=== PATIENT | female | born 1945 | race Hispanic/Latino ===

== ENCOUNTER 2017-09-04 23:02 | Emergency (ER) | payer MEDICARE ==
[~2017-09-04 23:02] MED LIST: AUD IH; AZIT500T4 PO; CLOP75TA32 PO; FLUT220HFA IH; FURO40TA5 PO; GLIM4TAB3 PO; GLIP5TAB11 PO; ROSU40TA28 PO
[2017-09-04] MEDS ORDERED: ONDANSETRON HCL 4 MG/2 ML VIAL ONE (23:52)
[2017-09-04] MEDS ORDERED: BACLOFEN 10 MG TABLET PO ONE (23:52)
[2017-09-04] MEDS ORDERED: MORPHINE SULFATE 2 MG/ML 1ML SYG ONE (23:53)
[2017-09-05 00:42] LABS: CREATININE 0.7 mg/dL (0.5-1.5)
== END 2017-09-05 01:41 | disposition home or self-care (01) ==
LOC: EDH 23:02
DX: M54.2 Cervicalgia (principal); M62.830 Muscle spasm of back; R51 Headache; I10 Essential (primary) hypertension; E11.9 Type 2 diabetes mellitus without complications; E78.5 Hyperlipidemia, unspecified; Z98.890 Other specified postprocedural states
CPT/HCPCS: 36415 ×2; 71046; 72040; 72072; 80048; 96374; 96375; 99285; J2405

== ENCOUNTER → 2017-11-13 | Outpatient (CLI) | payer MEDICARE ==
[~2017-11-13] MED LIST changes: +ALBUTEROL SULFATE 0.083% 2.5 MG/3 ML INH IH ONE; +ROSU40TA20 PO; -ROSU40TA28 PO
== END | disposition home or self-care (01) ==
LOC: RESP 10:21
PROVIDERS: ATTEND Family Medicine
DX: J44.9 Chronic obstructive pulmonary disease, unspecified (principal)
CPT/HCPCS: 94060; 94727; 94729

== ENCOUNTER → 2019-12-24 | Outpatient (CLI) | payer OTHER, MEDICARE | END | disposition home or self-care (01) | DX: I25.10 Atherosclerotic heart disease of native coronary artery without angina pectoris (principal) ==

== ENCOUNTER → 2022-06-06 | Outpatient (CLI) | payer OTHER, MEDICARE ==
[~2022-06-06] MED LIST changes: +AEC81 PO; +ALBU6.7H14 IH; -ALBUTEROL SULFATE 0.083% 2.5 MG/3 ML INH IH ONE; -AZIT500T4 PO; +BENZ-70 PO; +CHOL125C7 PO; +DOXY100T21 PO; +EZET10TA48 PO; +FLUT1AER IH; -FLUT220HFA IH; +FURO20TA4 PO; -FURO40TA5 PO; +GLIM1TAB18 PO; -GLIM4TAB3 PO; -GLIP5TAB11 PO; +ISOS30TA92 PO; +METO25TA6 PO; +NITR0.4T50 SL; +OMEP40CA21 PO; -ROSU40TA20 PO; +ROSU40TA21 PO; +SACU1TAB PO
== END | disposition home or self-care (01) ==
LOC: SHCH 08:30
PROVIDERS: ATTEND Internal Medicine Cardiovascular Disease
DX: G45.1 Carotid artery syndrome (hemispheric) (principal); F50.89 Other specified eating disorder; G45.9 Transient cerebral ischemic attack, unspecified
CPT/HCPCS: 93880

== ENCOUNTER → 2022-09-05 | Outpatient (CLI) | payer OTHER, MEDICARE ==
[~2022-09-05] MED LIST changes: +ALBUTEROL 0.083% 2.5 MG/3 ML INH IH ONE; +BENZ-226 PO; -BENZ-70 PO
== END | disposition home or self-care (01) ==
LOC: RESP 08:28
PROVIDERS: ATTEND Internal Medicine Cardiovascular Disease
DX: R06.02 Shortness of breath (principal); Z95.1 Presence of aortocoronary bypass graft; Z79.899 Other long term (current) drug therapy
CPT/HCPCS: 94010; 94060; 94727; 94729

== ENCOUNTER → 2023-03-11 | Outpatient (CLI) | payer OTHER, MEDICARE ==
[~2023-03-11] MED LIST changes: -ALBUTEROL 0.083% 2.5 MG/3 ML INH IH ONE; -CHOL125C7 PO; +DOXY100T2 PO; -DOXY100T21 PO; -ROSU40TA21 PO
[2023-03-11 12:30] LABS: CHOLESTEROL 155 mg/dL (<200); HDL CHOLESTEROL 44 mg/dL (35-85); LDL DIRECT 87 mg/dL (0-99); TRIGLYCERIDES 97 mg/dL (30-200)
== END | disposition home or self-care (01) ==
LOC: LAB 08:04
PROVIDERS: ATTEND Internal Medicine Cardiovascular Disease
DX: E78.2 Mixed hyperlipidemia (principal)
CPT/HCPCS: 36415; 80061

== ENCOUNTER → 2023-06-28 | Outpatient (CLI) | payer OTHER, MEDICARE ==
[2023-06-28 12:54] LABS: CHOLESTEROL 128 mg/dL (<200); HDL CHOLESTEROL 57 mg/dL (35-85); LDL DIRECT 65 mg/dL (0-99); TRIGLYCERIDES 96 mg/dL (30-200)
== END | disposition home or self-care (01) ==
LOC: LAB 08:22
PROVIDERS: ATTEND Internal Medicine Cardiovascular Disease
DX: E11.9 Type 2 diabetes mellitus without complications (principal); E78.2 Mixed hyperlipidemia
CPT/HCPCS: 36415; 80061

== ENCOUNTER → 2023-08-28 | Outpatient (CLI) | payer OTHER, MEDICARE | END | disposition home or self-care (01) | LOC: SHCH 09:37 | PROVIDERS: ATTEND Internal Medicine Cardiovascular Disease | DX: I65.23 Occlusion and stenosis of bilateral carotid arteries (principal) | CPT/HCPCS: 93880 ==

== ENCOUNTER → 2023-08-30 | Outpatient (CLI) | payer OTHER, MEDICARE ==
[2023-08-30 12:15] LABS: CREATININE 1.2 mg/dL (0.5-1.5); POTASSIUM 3.5 mmol/L (3.5-5.1)
== END | disposition home or self-care (01) ==
LOC: LAB 10:32
PROVIDERS: ATTEND Internal Medicine Cardiovascular Disease
DX: I10 Essential (primary) hypertension (principal)
CPT/HCPCS: 36415; 80048

== ENCOUNTER → 2023-09-09 | Outpatient (CLI) | payer OTHER, MEDICARE ==
[~2023-09-09] MED LIST changes: +IOHEXOL-350 75 ML VIAL IV ONE
== END | disposition home or self-care (01) ==
LOC: RAH 07:58
PROVIDERS: ATTEND Internal Medicine Cardiovascular Disease
DX: G45.1 Carotid artery syndrome (hemispheric) (principal)
CPT/HCPCS: 70498; Q9967

== ENCOUNTER → 2024-07-06 | Outpatient (CLI) | payer OTHER, MEDICARE ==
[~2024-07-06] MED LIST changes: -GLIM1TAB18 PO; +GLIM1TAB56 PO; -IOHEXOL-350 75 ML VIAL IV ONE
--- NOTE | 2024-07-06 12:46 | HMCIMG ---
CHEST 2VWS HISTORY: Pacemaker atrial lead malfunction COMPARISON: 05/31/2022 FINDINGS: Frontal and lateral projections of the chest were obtained. There are mild bilateral pulmonary infiltrates suggestive of mild pulmonary vascular congestion with possible superimposed pneumonitis. The heart is borderline enlarged. Poststernotomy changes are seen. Pacemaker is seen entering from the left. No evidence of aortic calcification is seen. Degenerative changes are seen of the thoracolumbar spine. IMPRESSION: 1. There are mild bilateral pulmonary infiltrates suggestive of mild pulmonary vascular congestion with possible superimposed pneumonitis.
== END | disposition home or self-care (01) ==
LOC: RAH 11:24
PROVIDERS: ATTEND Internal Medicine Cardiovascular Disease
DX: T82.110A Breakdown (mechanical) of cardiac electrode, initial encounter (principal); R91.8 Other nonspecific abnormal finding of lung field; Z95.0 Presence of cardiac pacemaker; M47.815 Spondylosis without myelopathy or radiculopathy, thoracolumbar region; Y82.8 Other medical devices associated with adverse incidents
CPT/HCPCS: 71046

== ENCOUNTER 2024-07-16 12:03 | Inpatient (IN) | payer OTHER, MEDICARE ==
[~2024-07-16] VITALS: Ht 127 cm; Wt 67.5 kg
--- NOTE | 2024-07-16 12:25 | EKG ---
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
--- NOTE | 2024-07-16 12:26 | ERN ---
ED Note History of Present Illness Stated Complaint: CP, SOB Chief Complaint: Shortness of Breath Time Seen by MD: 12:06 Time Seen by Midlevel: 12:06 Dictation: The patient is a 78-year-old female with a history of diabetes, CAD, CABG, cholecystectomy who presents to the emergency department with complaints of chest pressure onset one week she is here with shortness of breath and fatigue. Patient reports pain to be constant. Denies any coughs or fevers. Patient also reports generalized headache that she has had for some time. Denies any nausea or vomiting abdominal pain. Allergies: Coded Allergies: No Known Drug Allergies (Verified Allergy, 09/21/12) Home Meds Active Scripts Aspirin (ASPIRIN 81 MG ECTAB) 81 Mg Ectab, 81 MG PO DAILY, #30 TAB.EC 0 Refills Prov:ELEANOR SHAW AGPCNP 01/18/23 Metoprolol Tartrate (Metoprolol Tartrate) 25 Mg Tablet, 12.5 MG PO BID, #30 TAB Prov:KEMI LOZANO NP 05/31/22 Isosorbide Mononitrate (Isosorbide Mononitrate ER) 30 Mg Tab.er.24h, 30 MG PO DAILY for 90 Days, #90 TAB 3 Refills Prov:PARTIMA SANTOS MD 08/09/18 Albuterol Sulfate (Albuterol Sulfate) 2.5 Mg/0.5 Ml Vial.neb, 2.5 MG IH TID PRN for cough, #60 INH Prov:JANEEN ROSADO MD 06/05/14 Reported Medications Budesonide/Formoterol Fumarate (Symbicort 80/4.5 Inhaler) 80 Mcg-4.5 Mcg/Actuation Puff, 1 PUFF IH DAILY, INH 07/16/24 Sacubitril/Valsartan (Entresto 24 mg-26 mg Tablet) 24 Mg-26 Mg Tablet, 1 TAB PO BID for 30 Days, #60 TAB 0 Refills 07/16/24 Metolazone (Metolazone) 5 Mg Tablet, 1 TAB PO DAILY for 30 Days, #30 TAB 0 Refills 07/16/24 Cyanocobalamin (Vitamin B-12) (B-12) 1,000 Mcg Tablet, 1 TAB PO DAILY for 30 Days, #30 TAB 0 Refills 07/16/24 Rosuvastatin Calcium (Rosuvastatin Calcium) 40 Mg Tablet, 1 TAB PO DAILY for high cholesterol for 30 Days, #30 TAB 0 Refills 07/16/24 Apixaban (Eliquis) 5 Mg Tablet, 1 TAB PO DAILY for 30 Days, #60 TAB 0 Refills 07/16/24 Glimepiride (Glimepiride) 1 Mg Tablet, 1 MG PO DAILY, TAB 01/17/23 Omeprazole (Omeprazole) 40 Mg Capsule.dr, 40 MG PO DAILY, CAP 05/28/22 Furosemide (Furosemide) 20 Mg Tablet, 20 MG PO DAILY, TAB 05/28/22 Ezetimibe (Ezetimibe) 10 Mg Tablet, 10 MG PO DAILY, TAB 05/28/22 Benzonatate (Benzonatate) 100 Mg Capsule, 100 MG PO TID PRN for COUGH, CAP 05/28/22 Albuterol Sulfate (Proventil Hfa) 6.7 Gm Hfa.aer.ad, 6.7 GM IH Q6HPRN 05/28/22 Clopidogrel Bisulfate (Clopidogrel) 75 Mg Tablet, 75 MG PO DAILY, TAB 03/25/22 Nitroglycerin (Nitroglycerin) 0.4 Mg Tab.subl, 0.4 MG SL q5 MINUTES X 3, TAB.SL 03/25/22 Sacubitril/Valsartan (Entresto 24 mg-26 mg Tablet) 1 Each Tablet, 1 EACH PO BID, TAB 08/08/18 Fluticasone/Vilanterol (Breo Ellipta 100-25 Mcg INH) 1 Each Aer.pow.ba, 1 EACH IH DAILY 08/08/18 Discontinued Scripts Doxycycline Hyclate (Doxycycline Hyclate) 100 Mg Tablet, 100 MG PO BID, #14 TAB 0 Refills Prov:ELEANOR SHAW AGPCNP 01/18/23 Past Medical History Past Medical History: COPD, Diabetes-Type II, Heart Disease, Hypertension Surgical History: Cholecystectomy Surgical History Other: OPEN HEART SX (2012) Family History: Negative Social History: Negative RN Note Reviewed/Agreed w/PFSH: Yes Review of System Dictation Constitutional: Negative for fever,chills, and weight loss Eyes: Negative for injury, pain,redness, and discharge ENT: Negative for injury,pain or swelling Cardiovascular: Negative for palpitations, and edema positive for chest Respiratory: Negative for , cough, and wheezing, positive for shortness of breath Abdomen/GI: Negative for abdominal pain, nausea, vomiting, diarrhea, and constipation Back: Negative for injury and pain : Negative for injury, bleeding and discharge MS/Extremity: Negative for injury and deformity Skin: Negative for rash, and discoloration Neuro: Negative for , numbness, tingling, and seizure positive for headache fatigue Psych: Negative for suicide ideation, homicidal ideation, and hallucinations Initial Vital Sign VS Vital Signs Date Time Temp Pulse Resp B/P (MAP) Pulse Ox O2 Delivery O2 Flow Rate FiO2 07/16/24 12:27 97.9 76 20 119/37 97 Room Air 0 07/16/24 12:50 21 Physical Exam Dictation Vital Signs reviewed General Appearance: Alert, oriented x 3, mildly distress, well developed, nourished. Head and Face: non-traumatic. Eyes: PERRL, pink conjunctivas, eyelid no trauma, anterior chamber with arcus senilis. Ears: Pinnas intact and no signs of trauma or erythema ear canals clear and no discharge TM no erythema Nose: No discharge, no bleeding. Oropharynx: Mouth normal, tongue pink. pharynx clear,no erythema, tonsils no exudates, no abscesses noted, mucous membrane moist Neck: Supple, non-tender, no thyromegaly, no masses, no JVD, no bruits Breast:Deferred Chest:No tenderness, no crepitus, no paradoxical movement, no retractions Lungs:Clear, well-ventilated, symmetric, no rales, + wheezing, no rhonchi, no stridor, good breath sounds bilaterally Heart: Regular rate, regular rhythm, no murmur, no gallops Vascular: no peripheral edema, Abdomen: Soft, positive bowel sounds, nondistended, no guarding, nontender, no rebound, no masses no hepatomegaly, no splenomegaly, no Cole's sign, no hernias. Rectal: Deferred Genital: Deferred Neurological: Normal speech, motor function intact, sensory function intact Musculoskeletal: Neck nontender, full range of motion, back nontender, full range of motion, Extremities: nontender, full range of motion Skin: Color pink, dry, no turgor, no rash, no lacerations, no abrasions, no contusions. Lymphatic: Deferred Results (Laboratory/Radiology) Laboratory/Radiology Laboratory Tests Test 07/18/24 05:11 07/18/24 08:47 07/18/24 11:32 07/18/24 16:06 Whole Blood Glucose 89 MG/DL (70-110) 99 MG/DL (70-110) 92 MG/DL (70-110) White Blood Count 7.9 K/uL (4.8-10.8) Red Blood Count 3.07 MIL/uL (4.00-5.50) L Hemoglobin 9.4 g/dL (12.0-16.0) L Hematocrit 30.5 % (36-48) L Mean Corpuscular Volume 99.3 fL (79-99) H Mean Corpuscular Hemoglobin 30.6 pg (27.0-33.0) Mean Corpuscular Hemoglobin Concent 30.8 g/dL (32.0-36.0) L Red Cell Distribution Width 15.9 % (11.0-15.5) H Platelet Count 295 K/uL (130-400) Mean Platelet Volume 10.0 fL (7.5-10.5) Immature Granulocyte % (Auto) 0.4 % (0-1) Neutrophils (%) (Auto) 79.1 % (40.0-77.0) H Lymphocytes (%) (Auto) 14.7 % (21.0-51.0) L Monocytes (%) (Auto) 4.3 % (3.0-13.0) Eosinophils (%) (Auto) 1.1 % (0.0-8.0) Basophils (%) (Auto) 0.4 % (0.0-5.0) Neutrophils # (Auto) 6.2 K/uL (1.8-7.7) Lymphocytes # (Auto) 1.2 K/uL (1.0-4.8) Monocytes # (Auto) 0.3 K/uL (0.1-1.0) Eosinophils # (Auto) 0.09 K/uL (0.00-0.70) Basophils # (Auto) 0.03 K/uL (0.00-0.20) Absolute Immature Granulocyte (auto 0.03 K/uL (0-1) Nucleated Red Blood Cells 0.3 % (0.0-0.19) H Sodium Level 145 mmol/L (136-145) Potassium Level 3.3 mmol/L (3.5-5.1) L Chloride Level 107 mmol/L (101-111) Carbon Dioxide Level 31 mmol/L (21-32) Blood Urea Nitrogen 26 mg/dL (7-18) H Creatinine 1.6 mg/dL (0.5-1.0) H Glomerular Filtration Rate Calc 33 mL/min (>90) Random Glucose 145 mg/dL (70-105) H Total Calcium 8.7 mg/dL (8.5-10.1) Magnesium Level 1.90 mg/dL (1.80-2.40) Total Bilirubin 1.1 mg/dL (0.2-1.0) H Aspartate Amino Transf (AST/SGOT) 19 U/L (10-37) Alanine Aminotransferase (ALT/SGPT) 10 U/L (12-78) L Alkaline Phosphatase 87 U/L (50-136) Total Protein 6.2 g/dL (6.0-8.3) Albumin 2.7 g/dL (3.5-5.0) L Test 07/18/24 20:08 07/19/24 03:23 07/19/24 05:23 07/19/24 10:37 Whole Blood Glucose 163 MG/DL (70-110) #H 141 MG/DL (70-110) H 161 MG/DL (70-110) H White Blood Count 10.2 K/uL (4.8-10.8) # Red Blood Count 2.96 MIL/uL (4.00-5.50) L Hemoglobin 8.9 g/dL (12.0-16.0) L Hematocrit 28.9 % (36-48) L Mean Corpuscular Volume 97.6 fL (79-99) Mean Corpuscular Hemoglobin 30.1 pg (27.0-33.0) Mean Corpuscular Hemoglobin Concent 30.8 g/dL (32.0-36.0) L Red Cell Distribution Width 16.0 % (11.0-15.5) H Platelet Count 287 K/uL (130-400) Mean Platelet Volume 10.0 fL (7.5-10.5) Immature Granulocyte % (Auto) 0.5 % (0-1) Neutrophils (%) (Auto) 78.6 % (40.0-77.0) H Lymphocytes (%) (Auto) 13.5 % (21.0-51.0) L Monocytes (%) (Auto) 6.4 % (3.0-13.0) Eosinophils (%) (Auto) 0.7 % (0.0-8.0) Basophils (%) (Auto) 0.3 % (0.0-5.0) Neutrophils # (Auto) 8.0 K/uL (1.8-7.7) H Lymphocytes # (Auto) 1.4 K/uL (1.0-4.8) Monocytes # (Auto) 0.7 K/uL (0.1-1.0) Eosinophils # (Auto) 0.07 K/uL (0.00-0.70) Basophils # (Auto) 0.03 K/uL (0.00-0.20) Absolute Immature Granulocyte (auto 0.05 K/uL (0-1) Nucleated Red Blood Cells 0.4 % (0.0-0.19) H Prothrombin Time 11.9 SEC (9.6-11.6) H Prothromb Time International Ratio 1.07 (0.85-1.15) Sodium Level 144 mmol/L (136-145) Potassium Level 4.0 mmol/L (3.5-5.1) Chloride Level 109 mmol/L (101-111) Carbon Dioxide Level 27 mmol/L (21-32) Blood Urea Nitrogen 27 mg/dL (7-18) H Creatinine 1.6 mg/dL (0.5-1.0) H Glomerular Filtration Rate Calc 33 mL/min (>90) Random Glucose 152 mg/dL (70-105) H Total Calcium 8.8 mg/dL (8.5-10.1) Phosphorus Level 2.5 mg/dL (2.5-4.9) Magnesium Level 1.90 mg/dL (1.80-2.40) Test 07/19/24 15:38 07/19/24 20:19 07/20/24 03:56 07/20/24 06:01 Whole Blood Glucose 178 MG/DL (70-110) H 77 MG/DL (70-110) # 102 MG/DL (70-110) White Blood Count 7.5 K/uL (4.8-10.8) Red Blood Count 3.00 MIL/uL (4.00-5.50) L Hemoglobin 9.2 g/dL (12.0-16.0) L Hematocrit 29.3 % (36-48) L Mean Corpuscular Volume 97.7 fL (79-99) Mean Corpuscular Hemoglobin 30.7 pg (27.0-33.0) Mean Corpuscular Hemoglobin Concent 31.4 g/dL (32.0-36.0) L Red Cell Distribution Width 16.2 % (11.0-15.5) H Platelet Count 295 K/uL (130-400) Mean Platelet Volume 9.9 fL (7.5-10.5) Immature Granulocyte % (Auto) 0.4 % (0-1) Neutrophils (%) (Auto) 67.3 % (40.0-77.0) Lymphocytes (%) (Auto) 21.4 % (21.0-51.0) Monocytes (%) (Auto) 8.6 % (3.0-13.0) Eosinophils (%) (Auto) 1.9 % (0.0-8.0) Basophils (%) (Auto) 0.4 % (0.0-5.0) Neutrophils # (Auto) 5.1 K/uL (1.8-7.7) Lymphocytes # (Auto) 1.6 K/uL (1.0-4.8) Monocytes # (Auto) 0.7 K/uL (0.1-1.0) Eosinophils # (Auto) 0.14 K/uL (0.00-0.70) Basophils # (Auto) 0.03 K/uL (0.00-0.20) Absolute Immature Granulocyte (auto 0.03 K/uL (0-1) Nucleated Red Blood Cells 0.7 % (0.0-0.19) H Sodium Level 145 mmol/L (136-145) Potassium Level 3.7 mmol/L (3.5-5.1) Chloride Level 108 mmol/L (101-111) Carbon Dioxide Level 30 mmol/L (21-32) Blood Urea Nitrogen 23 mg/dL (7-18) H Creatinine 1.7 mg/dL (0.5-1.0) H Glomerular Filtration Rate Calc 31 mL/min (>90) Random Glucose 98 mg/dL (70-105) Total Calcium 8.8 mg/dL (8.5-10.1) Test 07/20/24 10:41 07/20/24 15:33 07/20/24 19:51 Whole Blood Glucose 92 MG/DL (70-110) 172 MG/DL (70-110) #H 118 MG/DL (70-110) H REASON: headache ORDERING PHYSICIAN: KEMI ORTEGA PROCEDURE: HEAD WO - CT HEAD/BRAIN W/O CONTRAST Exam Type: CT HEAD/BRAIN W/O CONTRAST Clinical Information: headache Comparison: None CT Dose Index (CTDI): 57.33 mGy Dose Length Product (DLP): 956.79 total mGy-cm Findings: There is low attenuation throughout the periventricular white matter locations, consistent with chronic small vessel ischemic changes. No acute intra- or extra-axial fluid collections are seen. There is no evidence of acute or chronic hemorrhage. There is no mass effect or shift of midline structures. There are no areas to suggest acute infarct. The skull windows show no significant abnormalities. IMPRESSION: 1. CHRONIC SMALL VESSEL ISCHEMIC CHANGES. REASON: cp ORDERING PHYSICIAN: KEMI ORTEGA CERAMIC ENGINEER PROCEDURE: CXR1VW - CHEST 1VW Exam Type: CHEST 1VW Clinical Information: cp Comparison: None Findings: Status post median sternotomy. Left-sided cardiac pacemaker in place. There is prominence of the pulmonary vascular markings consistent with pulmonary venous congestion. . There is central bilateral perihilar edema consistent with congestive heart failure. The heart is enlarged in size. The bony and soft tissue structures of the chest are unremarkable. Impression: Congestive heart failure with perihilar edema as noted. Labs Reviewed?: Yes EKG: (+) rhythm (Sinus rhythm) EKG Comment: EKG 07/16/2024 1224 ventricular rate 71, regular rate and rhythm, normal sinus rhythm, prolonged QT, no STEMI. ED Course ED Course Orders Procedure Category Date Status Time Cbc With Differential LAB 07/18/24 Complete 07:56 Comprehensive LAB 07/18/24 Complete Metabolic Panel 07:56 Magnesium LAB 07/18/24 Complete 07:56 Magnesium LAB 07/19/24 Complete 04:00 Phosphorus LAB 07/19/24 Complete 04:00 Cbc With Differential LAB 07/19/24 Complete 04:00 Cbc With Differential LAB 07/20/24 Complete 04:00 Cbc With Differential LAB 07/21/24 Verified 04:00 Basic Metabolic Panel LAB 07/19/24 Complete 04:00 Basic Metabolic Panel LAB 07/20/24 Complete 04:00 Basic Metabolic Panel LAB 07/21/24 Verified 04:00 Chest 1vw RAD 07/19/24 Resulted 06:00 Furosemide 40 Mg PHA 07/18/24 Complete Tablet (Lasix 40mg 17:00 Isosorbide [place] 30mg PHA 07/18/24 Complete Sr Tab (Imdur 30mg 12:00 Gi Soft/[place] Diet DIET 07/18/[address] Midline Access CPOE 07/18/24 Transmitted 18:24 Prothrombin Time With LAB 07/19/24 Complete INR 04:00 Pantoprazole 40mg Inj PHA 07/19/24 In Process (Protonix 40mg Inj 00:30 Metoprolol Succinate PHA 07/20/24 In Process (Toprol Xl) 09:00 Sacubitril/Valsartan PHA 07/19/24 In Process (Entresto 24 Mg-26 21:00 Furosemide 40 Mg PHA 07/20/24 In Process Tablet (Lasix 40mg 07:00 Consent Egd CPOE 07/20/24 Transmitted 10:25 Ketamine 50mg/Ml PHA 07/20/24 Complete Syringe (Ketamine 10:59 Propofol 20ml Vial PHA 07/20/24 Complete (Diprivan 20ml Vial) 11:00 Ephedrine Sulfate 50 PHA 07/20/24 Complete Mg/Ml Amp (Ephedrin 11:04 *Nursing CPOE 07/20/24 Transmitted Communication: 11:18 Heart Healthy Diet DIET 07/20/24 Transmitted Lunch Comprehensive LAB 07/21/24 Verified Metabolic Panel 04:00 Cbc Without LAB 07/21/24 Verified Differential 04:00 Magnesium LAB 07/21/24 Verified 04:00 Vital Signs Date Time Temp Pulse Resp B/P (MAP) Pulse Ox O2 Delivery O2 Flow Rate FiO2 07/20/24 19:59 64 18 N/A Room Air 21 07/20/24 19:57 60 16 07/20/24 19:03 98.1 67 16 103/42 94 Room Air 07/20/24 17:24 98.6 75 20 123/75 98 Room Air 07/20/24 14:20 86 86/39 96/37 96/37 102/48 07/20/24 12:00 98.2 87 20 97/56 99 Room Air 07/20/24 08:20 72 18 N/A Room Air 21 30/24 08:00 97 Room Air* 0 07/20/24 08:00 97.7 71 20 103/53 97 Room Air 07/20/24 04:05 98.4 69 20 110/40 96 Room Air 07/20/24 00:20 98.4 88 18 108/40 98 Room Air 07/19/24 20:20 97.9 105 20 105/75 100 Room Air 07/19/24 20:00 100 Room Air* 0 07/19/24 19:52 70 16 07/19/24 19:52 70 16 N/A Room Air 07/19/24 16:26 98.6 68 20 127/52 98 Room Air 07/19/24 11:43 98.8 68 20 120/55 98 Room Air 07/19/24 08:00 99.0 65 20 101/42 96 Room Air 07/19/24 08:00 96 Room Air* 0 07/19/24 07:31 97.7 99 18 101/42 96 Room Air 07/19/24 04:27 97.9 65 18 105/73 96 Room Air 07/18/24 23:35 98.4 60 18 113/45 98 Room Air 07/18/24 20:00 97 Room Air* 0 07/18/24 19:46 98.2 66 18 96/54 97 Room Air 07/18/24 18:46 67 16 N/A Room Air 07/18/24 18:45 67 16 07/18/24 16:00 98.1 60 18 99/50 92 Room Air 07/18/24 13:24 117/46 07/18/24 11:00 98.1 69 16 113/55 93 Room Air 07/18/24 08:00 96 Room Air* 0 07/18/24 07:00 97.9 54 18 129/49 96 Room Air 07/18/24 06:39 67 18 N/A Room Air 07/18/24 06:37 67 18 07/18/24 04:28 98.4 91 18 97/48 93 Room Air 07/18/24 00:33 62 18 106/73 99 Room Air 07/17/24 20:16 71 17 N/A Room Air 0.0 07/17/24 20:16 71 17 HEART Score Response (Comments) Value History: High suspicion (+2) 2 EKG: Normal 0 Age: > 65yrs (+2) 2 Risk Factors: 3+ risk factors (+2) 2 Initial Troponin: >3x Normal Limit (+2) 2 Total [address] Medical Decision Making [facility] MDM: The patient is a 78-year-old female with a history of diabetes, CAD, CABG, cholecystectomy who presents to the emergency department with complaints of chest pressure onset one week she is here with shortness of breath and fatigue. Patient reports pain to be constant. Denies any coughs or fevers. Patient also reports generalized headache that she has had for some time. Denies any nausea or vomiting abdominal pain. CBC showed no leukocytosis, normocytic anemia, chemistry showed GFR of 39, 1st troponin at 934, 2nd troponin 864. CT head with no acute intracranial bleeding. Elevated BNP Chest x-ray showed CHF Patient reports a relief in pain although she still feels some pressure. Patient will be admitted for further management. Differential diagnosis: ACS, pneumonia, pneumothorax, electrolyte imbalance, intracerebral hemorrhage Comorbidities: Diabetes, hypertension, permanent pacemaker, CABG, CAD Tests considered and not ordered secondary to shared decision making include: none Previous outside records reviewed: none Risk of complication and/or morbidity or mortality of patient management: The patient meets criteria for admission. Need for emergency major/minor surgery: No There are no social concerns with this patient. I independently interpreted the tests I ordered (labs, urinalysis, etc.). I discussed the case with the hospitalist for admission. Ramsey who accepts admission I discussed the case with the following specialists: none. Historian: pateint. I independently interpreted imaging studies and EKGs that I ordered (US, CT, XR, EKG, etc.). External chart review: none. Medical management and examination interpretation discussions were had by me with other qualified healthcare professionals as indicated for the patient's care. Critical Care Note Critical Time: other (36) Comment(s) Total critical care time was 36 minutes. Excluding time for procedures. M anagement of critically ill patient with concern for acute decompensation. Management included interpretation of laboratory values and imaging, hemodynamics, time for consultation with consultants and admitting physician. DX & DISP Disposition: Inpatient Decision to Admit Date: Jul 16, 2024 Decision to Admit Time: 15:45 Departure Impression: Primary Impression: NSTEMI (non-ST elevated myocardial infarction) Additional Impressions: CHF exacerbation, Shortness of breath, Anemia, Occult blood positive stool, CKD (chronic kidney disease), Headache Condition: Stable Referrals: MARIA A B[place]MINGHAM (PCP) I have reviewed the case, and I agree with, Diagnosis and Plan ATTESTATION BY PHYSICIAN I PERFORMED THE SUBSTANTIVE PORTION OF THE VISIT. I HAVE REVIEWED AND PERSONALLY MADE AND APPROVED THE MANAGEMENT PLAN THAT IS DOCUMENTED IN THE NOTE BY MYSELF FOR THE A PP. I ACKNOWLEDGED FOR RESPONSIBILITY FOR THE PATIENT'S MANAGEMENT PLAN. KEMI ORTEGA Jul 16, 2024 12:25 LAWRENCE MONTOYA MD Jul 20, 2024 20:06
[2024-07-16] MEDS ORDERED: ASPIRIN 325MG TAB PO ONE (12:30)
[2024-07-16 12:53] LABS: BASOPHILS # (AUTO) 0.04 K/uL (0.00-0.20); BASOPHILS % (AUTO) 0.5 % (0.0-5.0); EOSINOPHILS # (AUTO) 0.08 K/uL (0.00-0.70); EOSINOPHILS % (AUTO) 1.1 % (0.0-8.0); HEMATOCRIT 28.1 % (36-48); IMMATURE GRANULOCYTE ABSOLUTE 0.03 K/uL (0-1); LYMPHOCYTES # (AUTO) 1.8 K/uL (1.0-4.8); LYMPHOCYTES % (AUTO) 23.1 % (21.0-51.0); MONOCYTES # (AUTO) 0.5 K/uL (0.1-1.0); NEUTROPHILS # (AUTO) 5.1 K/uL (1.8-7.7); NEUTROPHILS % (AUTO) 67.9 % (40.0-77.0); PLATELET COUNT (AUTO) 248 K/uL (130-400); RED BLOOD CELL COUNT(AUTO) 2.81 MIL/uL (4.00-5.50); RED CELL DISTRIBUTION WIDTH 15.9 % (11.0-15.5); WHITE BLOOD COUNT (AUTO) 7.6 K/uL (4.8-10.8)
[2024-07-16] MEDS: NITROGLYCERIN 1GM OINT 1 INCH/1GM TD ONE (12:56)
[2024-07-16 13:01] LABS: PROTHROMBIN TIME 11.2 SEC (9.6-11.6)
[2024-07-16 13:13] LABS: CREATININE 1.4 mg/dL (0.5-1.0); POTASSIUM 4.1 mmol/L (3.5-5.1)
[2024-07-16 13:16] LABS: COVID19 (SARS ANTIGEN RAPID) PRESUMPTIVE NEGATIVE (NEGATIVE); INFLUENZA TYPE A Negative For Type A (NEGATIVE); INFLUENZA TYPE B Negative For Type B (NEGATIVE)
[2024-07-16 13:17] LABS: ALBUMIN 2.9 g/dL (3.5-5.0); BILIRUBIN,DIRECT 0.2 mg/dL (0.0-0.3); BILIRUBIN,TOTAL 0.5 mg/dL (0.2-1.0); MAGNESIUM 2.4 mg/dL (1.80-2.40); TOTAL PROTEIN, SERUM 6.5 g/dL (6.0-8.3)
[2024-07-16 13:35] LABS: B-TYPE NATRIURETIC PEPTIDE 501 pg/mL (0-100)
--- NOTE | 2024-07-16 13:36 | HMCIMG ---
Exam Type: CHEST 1VW Clinical Information: cp Comparison: None Findings: Status post median sternotomy. Left-sided cardiac pacemaker in place. There is prominence of the pulmonary vascular markings consistent with pulmonary venous congestion. . There is central bilateral perihilar edema consistent with congestive heart failure. The heart is enlarged in size. The bony and soft tissue structures of the chest are unremarkable. Impression: Congestive heart failure with perihilar edema as noted.
--- NOTE | 2024-07-16 14:21 | HMCIMG ---
Exam Type: CT HEAD/BRAIN W/O CONTRAST Clinical Information: headache Comparison: None CT Dose Index (CTDI): 57.33 mGy Dose Length Product (DLP): 956.79 total mGy-cm Findings: There is low attenuation throughout the periventricular white matter locations, consistent with chronic small vessel ischemic changes. No acute intra- or extra-axial fluid collections are seen. There is no evidence of acute or chronic hemorrhage. There is no mass effect or shift of midline structures. There are no areas to suggest acute infarct. The skull windows show no significant abnormalities. IMPRESSION: 1. CHRONIC SMALL VESSEL ISCHEMIC CHANGES.
[2024-07-16] MEDS: ASPIRIN 325MG TAB PO SCH (14:36)
[2024-07-16] MEDS: furoSEMIDE 20MG VIAL IV SCH ×3 (14:36→20:10)
--- NOTE | 2024-07-16 14:41 | NUR ---
PATIENT DECLINED OCCULT STOOL STATING SHE IS NOT HAVING SIGNS OF BLOOD IN STOOL. PROVIDER KEMI ORTEGA NP AT BEDSIDE
[2024-07-16 14:54] LABS: APPEARANCE,URINE CLEAR (CLEAR); BILIRUBIN,URINE NEGATIVE (NEGATIVE); COLOR,URINE LIGHT-YELLOW (YELLOW); GLUCOSE, URINE (UA) NEGATIVE (NEGATIVE); KETONES,URINE NEGATIVE (NEGATIVE); LEUKOCYTE ESTERASE ,URINE NEGATIVE Leu/uL (NEGATIVE); NITRATE,URINE NEGATIVE (NEGATIVE); OCCULT BLOOD,URINE NEGATIVE (NEGATIVE); PH,URINE 5.5 (5.0-8.0); PROTEIN,URINE 20 mg/dL (NEGATIVE); UROBILINOGEN,URINE 0.2 mg/dL (0.2-1.0)
[2024-07-16 14:55] LABS: ADD UA MICROSCOPIC YES
[2024-07-16 14:57] LABS: BACTERIA,URINE RARE /HPF (None Seen); MUCUS,URINE RARE LPF (None Seen); RBC,URINE 0-1 /HPF (0-1); SQUAMOUS EPITHELIAL CELL,UR RARE /HPF (0-2)
[2024-07-16] MEDS: PANTOPrazole 40 MG/VIAL IVP ONE (16:10)
[2024-07-16] MEDS: INSULIN humuLIN R 100 UNIT/ML 3ML SQ SCH (16:30)
[2024-07-16] MEDS ORDERED: ondanSETRON 4MG INJ IVP PRN (16:30)
--- NOTE | 2024-07-16 16:56 | HMCIMG ---
Exam Type: US VENOUS DOPPLER BILATERAL Clinical Information: Bilateral lower extremity edema, r/o DVT Comparison: None Findings: The examination shows normal deep venous system. There is normal compressibility at all levels. There is no intraluminal clot. There is no occlusion. Adequate response is obtained on augmentation. Impression: No evidence of DVT.
[2024-07-16] MEDS ORDERED: PoTASSium chloRIDE 20MEQ/100ML 100 ML IV PRN (17:30)
[2024-07-16] MEDS ORDERED: SYMB8060 IH (17:38)
[2024-07-16] MEDS ORDERED: ROSU40TA88 PO (17:38)
[2024-07-16] MEDS ORDERED: APIX5TAB PO (17:38)
[2024-07-16] MEDS ORDERED: METO5TAB7 PO (17:38)
[2024-07-16] MEDS ORDERED: SACU1TAB PO (17:38)
[2024-07-16] MEDS ORDERED: CYAN100099 PO (17:38)
--- NOTE | 2024-07-16 17:39 | NUR ---
DECLINED ROLANDO ZAMORA. PATIENT STATES WANTS TO HAVE BATHROOM PRIVELAGES
--- NOTE | 2024-07-16 17:39 | NUR ---
HOME MEDICATIONS UPDATED IN EMR
[2024-07-16] MEDS: PANTOPrazole 40MG INJ 80 MG in 0.9%NACL 100ML 100 ML IVP SCH (18:35)
--- NOTE | 2024-07-16 18:36 | NUR ---
GI CONSULT: DR WEBB SPOKE WITH SAKINA WITH GI
--- NOTE | 2024-07-16 19:01 | HP ---
[facility] HISTORY AND PHYSICAL Date of Service: Jul 16, 2024 Time of Service: 18:48 HISTORY OF PRESENT ILLNESS: [Date of service: 07/16/2024, patient was seen in ER [age]-year-old female with underlying history of type 2 diabetes mellitus, chronic kidney disease stage 3, hypertension, hyperlipidemia, underlying history of coronary artery disease status post remote MO in 2008, history of coronary artery bypass grafting times three-vessel in 2008 and subsequently documented inoperable coronary artery disease by repeat cardiac catheterization in 09/2012, history of advanced ischemic cardiomyopathy with LVEF less than 30% (05/2023), history of recent anticoagulation with Eliquis, history of ICD placement, history of bilateral carotid artery stenosis who presented to the ER with chief complaint of progressive shortness of breath. Patient states that shortness of breath started several days ago and has been pr ogressive in severity. She has dyspnea on exertion with minimal ambulation she has noticed significant swelling of her lower extremity. She denies any significant chest pain or chest pressure but reports having palpitations. She is followed by Dr. Kinney's with Cardiology as outpatient. Recently, due to marginal blood pressure, her dose of outpatient Lasix was decreased from 40 mg to 20 mg daily. She was also started on anticoagulation with Eliquis two weeks ago with last dose being a day prior. She is unsure if she has underlying history of atrial fibrillation/atrial flutter. She has also been taking aspirin as outpatient. She was also recently told that there might be issues with her ICD lead and she has been monitored closely by Dr. Davila. Legs have been significantly swollen since the dose of Lasix was reduced. On presentation to the hospital, patient was noted to be afebrile with T-max of 97.9 F, heart rate of 76, blood pressure 119/37. Patient was also noted to be hypoxemic requiring 2 L of O2 supplementation by nasal cannula. Labs on presentation showed WBC count of 7600, hemoglobin of 8.7, MCV of 100 with platelet count of [id number]. CMP remarkable for sodium 144, potassium 4.1, BUN of 26, creatinine of 1.4. Cardiac panel was noted to be elevated with high sensitivity troponin of 934 and BNP of 501. Chest x-ray showed significant pulmonary vascular congestion rakel rning for pulmonary edema with perihilar edema. Stool occult was positive for blood. Patient denies noticing active melena or hematochezia. Patient will be admitted for further management of acute on chronic systolic and diastolic heart failure exacerbation, NSTEMI, concern for GI bleeding in the setting of outpatient Eliquis therapy. Patient will be admitted under hospitalist service and consultation with GI and Cardiology will be requested this admission. We will monitor this patient closely. Advanced directives was discussed with patient and daughter at bedside, patient has requested modified code, she is okay with intubation, vasopressors, defibrillation and cardioversion. She has requested no CPR. ] REVIEW OF SYSTEMS CONSTITUTIONAL: Asthenia, malaise NEUROLOGICAL: Denies headache, amaurosis fugax, motor weakness, sensory deficit , vertigo/spinning sensation, gait abnormalities, or tremors. ENT: No hearing loss, otalgia, otorrhea, rhinitis, rhinorrhea, hoarseness, or sore throat. CARDIOVASCULAR: Dyspnea on exertion, palpitation, progressive lower extremity edema PULMONARY: Shortness of breath, PND, orthopnea SLEEP: Denies morning headaches, daytime somnolence or napping. Denies difficulty falling asleep, staying asleep, waking from sleep. Denies knowledge of snoring. GASTROINTESTINAL: Denies any type of dysphagia to either liquids or solids. Denies nausea, vomiting, pyrosis, early satiety, abdominal pain, diarrhea, constipation, or changes in stool consistency or caliber. Denies coffee-ground emesis, hematemesis, hematochezia, or melanotic stools. GENITOURINARY: Denies frequency, urgency, nocturia, hematuria or incontinence (Storage/Irritative symptoms.) Low urinary stream, straining to void, urinary intermittency or hesitancy, splitting of the voiding stream, terminal dribbling. ENDOCRINOLOGIC: Denies polyuria, polydipsia, polyphagia or heat/cold intolerances. HEMATOLOGIC: Denies thrombophilia/previous clots, or coagulopathy/bleeding disorders. ONCOLOGIC: Denies personal history of malignancy. DERMATOLOGIC: Denies rashes or pruritus. PSYCHIATRIC: Denies any suicidal or homicidal ideation. Denies hallucinations. Past Medical History: Coronary artery disease status post remote myocardial infarction in 2008 Coronary artery disease status post remote coronary bypass surgery x3 vessels in 2008 with subsequent documented inoperable coronary artery disease by cardiac catheterization September 2012 Chronic systolic and diastolic congestive heart failure hospital History of AICD insertion with Guidant device Type 2 diabetes with circulatory and renal manifestations Essential hypertension Carotid artery disease by Doppler exam February 2021 with 50 to 70% right internal carotid stenosis and greater than 70% left internal carotid stenosis Obesity Past Surgical History: Coronary artery disease status post coronary bypass surgery x3 vessels in 2008 AICD insertion November 2012 with generator replacement May 2017 Cholecystectomy Family History: Noncontributory Social History: Noncontributory Habits: Remote mild smoker. Reports secondhand smoke. Denies alcohol consumption. Denies illicit drug use Home Meds: Furosemide 20 mg p.o. daily Metoprolol tartrate 12.5 mg b.i.d. Aspirin 81 mg daily Eliquis 5 mg b.i.d. Zetia 10 mg p.o. daily Entresto twice daily Omeprazole 40 mg daily Breo inhaler Albuterol inhaler 3 times daily Glimepiride 1 mg daily Coded Allergies: No Known Drug Allergies (Verified Allergy, 09/21/12) PHYSICAL EXAM GENERAL APPEARANCE: The patient is awake, alert, and oriented, in no acute cardiopulmonary distress. NEUROLOGICAL: Cranial nerves II-XII grossly intact. Motor is 5/5 in bilateral upper and lower extremities proximal to distal. No sensory deficits. HEENT: Face is symmetric. Pupils are equal and reactive. Extraocular movements are intact. NECK: Supple. No JVD. No thyromegaly. No submental, submandibular, pre-/postauricular, occipital or supraclavicular lymphadenopathy. CHEST: Normal chest expansion. No Telemetry. LUNGS: Crackles noted bilateral lung bases with rhonchorous breath sounds CARDIOVASCULAR: Regular. S1 and S2 normal. No appreciable rubs, murmurs or gallops. ABDOMEN: Soft, nontender, and nondistended. There is no rebound, voluntary guarding, or rigidity. : Deferred. No Ma. EXTREMITIES: 2+ pitting edema bilateral lower extremity SKIN: No skin breakdown. Vital Sign (Last 24 Hours) 07/16/24 07/16/24 12:27 17:21 Temp 97.9 Pulse 64 Resp 12 B/P (MAP) 112/47 Pulse Ox 96 O2 Delivery Room Air* O2 Flow Rate 0 FiO2 21 LABS: Laboratory: Test 07/16/24 14:54 07/16/24 14:45 07/16/24 13:53 07/16/24 12:39 Range/Units Stool Occult Blood POSITIVE H NEGATIVE Urine Color LIGHT-YELLOW YELLOW Urine Appearance CLEAR CLEAR Urine pH 5.5 5.0-8.0 Urine Specific [place] 1.021 1.001-1.031 Urine Protein 20 H NEGATIVE mg/dL Urine Glucose (UA) NEGATIVE NEGATIVE mg/dL Urine Ketones NEGATIVE NEGATIVE mg/dL Urine Occult Blood NEGATIVE NEGATIVE Urine Nitrate NEGATIVE NEGATIVE Urine Bilirubin NEGATIVE NEGATIVE mg/dL Urine Urobilinogen 0.2 0.2-1.0 mg/dL Urine Leukocyte Esterase NEGATIVE NEGATIVE Ronny/uL Urine RBC 0-1 0-1 /HPF Urine WBC 2-5 H 0-1 /HPF Urine Squamous Epithelial Cells RARE 0-2 /HPF Urine Bacteria RARE None Seen /HPF Urine Hyaline Casts 2-5 H 0-1 /LPF /LPF Troponin I High Sensitivity 864 *H 4-50 ng/L White Blood Count 7.6 4.8-10.8 K/uL Red Blood Count 2.81 L 4.00-5.50 MIL/uL Hemoglobin 8.7 L 12.0-16.0 g/dL Hematocrit 28.1 L 36-48 % Mean Corpuscular Volume 100.0 H 79-99 fL Mean Corpuscular Hemoglobin 31.0 27.0-33.0 pg Mean Corpuscular Hemoglobin Concent 31.0 L 32.0-36.0 g/dL Red Cell Distribution Width 15.9 H 11.0-15.5 % Platelet Count 248 130-400 K/uL Mean Platelet Volume 10.1 7.5-10.5 fL Immature Granulocyte % (Auto) 0.4 0-1 % Neutrophils (%) (Auto) 67.9 40.0-77.0 % Lymphocytes (%) (Auto) 23.1 21.0-51.0 % Monocytes (%) (Auto) 7.0 3.0-13.0 % Eosinophils (%) (Auto) 1.1 0.0-8.0 % Basophils (%) (Auto) 0.5 0.0-5.0 % Neutrophils # (Auto) 5.1 1.8-7.7 K/uL Lymphocytes # (Auto) 1.8 1.0-4.8 K/uL Monocytes # (Auto) 0.5 0.1-1.0 K/uL Eosinophils # (Auto) 0.08 0.00-0.70 K/uL Basophils # (Auto) 0.04 0.00-0.20 K/uL Absolute Immature Granulocyte (auto 0.03 0-1 K/uL Nucleated Red Blood Cells 0.0 0.0-0.19 % Red Blood Cell Morphology See comments Prothrombin Time 11.2 9.6-11.6 SEC Prothromb Time International Ratio 1.00 0.85-1.15 Activated Partial Thromboplast Time 25.0 L 26.3-35.5 SEC Sodium Level 144 136-145 mmol/L Potassium Level 4.1 3.5-5.1 mmol/L Chloride Level 110 101-111 mmol/L Carbon Dioxide Level 26 21-32 mmol/L Blood Urea Nitrogen 26 H 7-18 mg/dL Creatinine 1.4 H 0.5-1.0 mg/dL Glomerular Filtration Rate Calc 39 >90 mL/min Random Glucose 127 H 70-105 mg/dL Total Calcium 9.0 8.5-10.1 mg/dL Magnesium Level 2.40 1.80-2.40 mg/dL Total Bilirubin 0.5 0.2-1.0 mg/dL Direct Bilirubin 0.2 0.0-0.3 mg/dL Aspartate Amino Transf (AST/SGOT) 17 10-37 U/L Alanine Aminotransferase (ALT/SGPT) 13 12-78 U/L Alkaline Phosphatase 85 50-136 U/L Total Creatine Kinase 30 # 21-232 U/L B-Type Natriuretic Peptide 501 H 0-100 pg/mL Total Protein 6.5 6.0-8.3 g/dL Albumin 2.9 L 3.5-5.0 g/dL Influenza Type A Antigen Negative For Type A NEGATIVE Influenza Type B Antigen Negative For Type B NEGATIVE SARS-CoV-2 Antigen (Rapid) PRESUMPTIVE NEGATIVE NEGATIVE Current Medications Medications (Trade) Dose Ordered Sig/Fracisco Route PRN Reason Start Time Stop Time Status Last Admin Dose Admin Acetaminophen (TYLenol 500MG TAB) 500 mg Q6H PRN PO MILD PAIN (1-3) 07/16/24 16:30 08/15/24 16:29 Aspirin (Aspirin 325mg Tab) 325 mg ONCE PO 07/16/24 14:30 07/16/24 21:30 07/16/24 14:36 325 MG Atorvastatin Calcium (LIPItor 40MG) 40 mg HS PO 07/16/24 21:00 08/15/24 20:59 Budesonide (Pulmicort 0.5 Mg/2ml) 0.5 mg BIDRESP IH 07/16/24 18:00 08/15/24 17:59 EZETIMIBE (Zetia) 10 mg DAILY PO 07/17/24 09:00 08/16/24 08:59 Furosemide (LASix 20MG VIAL) 20 mg ONCE IV 07/16/24 14:30 07/16/24 16:03 DC 07/16/24 14:36 20 MG Furosemide (LASix 20MG VIAL) 20 mg Q8H IV 07/16/24 18:00 07/16/24 17:30 DC Furosemide (LASix 20MG VIAL) 20 mg Q8H IV 07/16/24 19:00 08/15/24 18:59 Home Med (Home Medication) (Fluticasone/ Vilanterol (B... DAILY IH 07/17/24 09:00 08/16/24 08:59 Insulin Human Regular (humuLIN R 100 UNIT/ML 3ML) INSULIN SLIDING SCAL... ACHS SQ 07/16/24 16:30 08/15/24 16:29 Magnesium Sulfate 50 ml @ 0 mls/hr PROTOCOL IV 07/16/24 17:30 08/15/24 17:29 Metoprolol Tartrate (loprESSOR) 12.5 mg BID PO 07/16/24 21:00 08/15/24 20:59 Ondansetron HCl (zoFRAN 4MG INJ) 4 mg Q6H PRN IVP NAUSEA/VOMITING 07/16/24 16:30 08/15/24 16:29 Pantoprazole Sodium 80 mg/ Sodium Chloride 100 ml @ 10 mls/hr Q10H IVP 07/16/24 16:00 08/15/24 15:59 07/16/24 18:35 10 MLS/HR Potassium Chloride 100 ml @ 100 mls/hr AD PRN IV POTASSIUM PROTOCOL 07/16/24 17:30 08/15/24 17:29 Potassium Chloride (K-Dur/Klor-Con 20meq) 20 meq AD PRN PO POTASSIUM PROTOCOL 07/16/24 17:30 08/15/24 17:29 Potassium Chloride (KCl 10% Elixir 20meq/15ml) 20 meq AD PRN PO POTASSIUM PROTOCOL 07/16/24 17:30 08/15/24 17:29 Sacubitril/ Valsartan (Entresto 24 Mg-26 Mg Tablet) 1 each BID PO 07/16/24 21:00 08/15/24 20:59 Vitamin B Complex (Vitamin B-12) 1,000 mcg DAILY PO 07/17/24 09:00 08/16/24 08:59 DIAGNOSTICS / RADIOLOGY: [SERVICE 1217 REASON: cp ORDERING PHYSICIAN: KEMI ORTEGA PROCEDURE: CXR1VW - CHEST 1VW Exam Type: CHEST 1VW Clinical Information: cp Comparison: None Findings: Status post median sternotomy. Left-sided cardiac pacemaker in place. There is prominence of the pulmonary vascular markings consistent with pulmonary venous congestion. . There is central bilateral perihilar edema consistent with congestive heart failure. The heart is enlarged in size. The bony and soft tissue structures of the chest are unremarkable. Impression: Congestive heart failure with perihilar edema as noted. DICTATED BY: NYDIA WORRELL MD DATE: 07/16/241332 ELECTRONICALLY SIGNED BY: NYDIA WORRELL MD DATE: 07/16/241335 ] ASSESSMENT: Acute on chronic systolic and diastolic heart failure exacerbation, POA History of advanced ischemic cardiomyopathy with LVEF of about 30%, 06/12, POA NSTEMI, POA Acute hypoxemic respiratory failure with cardiogenic pulmonary edema, POA Progressive anemia with concerns for GI bleeding, POA History of recent anticoagulation with Eliquis as outpatient, POA Rule out outpatient atrial fibrillation, POA History of multivessel coronary artery disease with prior history of MO in 2008 History of coronary artery bypass vessel grafting times three-vessel in 2008, POA History of documented inoperable coronary artery disease by cardiac catheterization in 09/2012, POA Underlying history of hypertension, POA Hyperlipidemia, POA Obesity, POA Underlying history of ICD placement, POA PLAN: Patient will be admitted to cardiac telemetry floor Chest x-ray shows florid pulmonary edema We will start patient on IV diuretics with IV Lasix 20 mg q.8 hours Monitor urine output closely Trend troponin until it peaks, patient with progressive anemia since being started on Eliquis and occult stool was positive for blood concerning for GI bleeding We will have to place anticoagulation and antiplatelet therapy on hold, consulta tion with GI will be requested, patient will likely need to be treated conservatively/ medically with regards to GI bleed due to current heart failure exacerbation, advanced cardiomyopathy and active NSTEMI Consultation with Cardiology will be requested, patient's case was discussed with Dr. Brewer Transfuse to maintain hemoglobin greater than 7-8 due to active ACS Eliquis will be placed on hold Home medications will be reconciled and updated We will check further lab work including iron panel, B12, folic acid, we will check TSH as well, we will start IV Iron in case iron level is low tomorrow H&H will be monitored q.6 hours tonight, and all labs will be repeated in the morning, maintain K greater than four and magnesium greater than two DVT prophylaxis with SCDs and GI prophylaxis with Protonix We will obtain 2D echocardiogram to assess LVEF ICD to be interrogated this admission Date of service: 07/16/2024 Prognosis: Guarded Plan of care was discussed with patient and daughter at bedside Advanced directives was discussed with patient she has requested no CPR, patient is okay with intubation and mechanical ventilation, vasopressors and cardioversion/Defibrillation, Derek Mustafa MD Advanced Care Planning: Which of the following were discussed: Hospice care: Yes __ No _X_ Therapeutic options: Yes _X_ No __ Advance directives: Yes _X_ No __ Other discussions: Discussed with who?: Patient and daughter Voluntary nature of this service was explained to the patient? Yes _x_ No __ Amount of time spent: 20 minutes DEREK MUSTAFA MD Jul 16, 2024 19:01
[2024-07-16 19:21] LABS: THYROID STIMULATING HORMONE 1.08 uIU/mL (0.36-3.74)
[2024-07-16 19:27] LABS: HEMOGLOBIN A1C 6.4 % (4.0-6.0)
[2024-07-16 19:59] VITALS: PULSE 77; RESP 20; O2SAT 94
[2024-07-16] MEDS: BUDESONIDE 0.5 MG/2 ML INH IH SCH (19:59)
[2024-07-16 20:29] LABS: HEMATOCRIT 28.5 % (36-48)
--- NOTE | 2024-07-16 20:30 | CONS ---
[facility] CARDIOLOGY CONSULTATION REPORT Cardiology consultation note dictated for Soha Bolden MD Primary garment parts cutter machine: Dannie Davila MD Date Patient Seen: Jul 16, 2024 Requesting Physician: Drew Mustafa MD Reason for Consultation: NSTEMI, Acute CHF History of Present Illness: This is a 78-year-old female with a past medical history of hypertension, diabetes mellitus type 2, remote myocardial infarction in 2008, paroxysmal atrial fibrillation on chronic anticoagulation with Eliquis started on 06/23/2024, CAD status post CABG x3 in 2008 with documented inoperable CAD September 2012, 2D echo on 05/29/2022 with an EF of 30%, stage III diastolic dysfunction, [id number] MR, and severe global hypokinesis, ischemic cardiomyopathy with an EF less than 35%, ICD placement with a [employer] scientific device November 2012 with generator replacement 05/16/2017, possible atrial lead malfunction, carotid artery disease with 50-70% right internal carotid artery stenosis and greater than 70% left internal carotid artery stenosis by Doppler February 2021, CKD and COPD who presented to the ED with complaints of chest pressure, shortness of breath, and fatigue for 1 week. The patient was found to have a hemoglobin of 8.7, hematocrit of 28.1 and a positive occult stool. Of note, the patient was started on Eliquis 5 mg b.i.d. on 06/23/2024 when paroxysmal atrial fibrillation was found on her device check. She was also to take aspirin 81 mg daily and discontinue clopidogrel 75 mg daily. She admits to stopping Eliquis due to dizziness 1 week ago. She did notice her stools were black but denies any hematochezia or hematuria. She is pending a GI consultation. She is maintained on a Protonix drip. Cardiology was consulted for NSTEMI and acute on chronic combined systolic and diastolic heart failure. The patient admitted to intermittent chest pressure, general body weakness and shortness of breath for the last 2 days. Troponin levels of 934 and 864. EKG on admission demonstrated normal sinus rhythm with a heart rate of 71bpm, possible old anterior infarct, and a prolonged QTC of 549ms. She received aspirin 325 mg x 1 and nitroglycerin 1" topically to her chest wall. She currently denies chest pain, chest pressure, palpitations, dizziness, PND, nausea, or vomiting. She admitted to shortness of breath and ort hopnea since last night. BNP level was 501. Chest x-ray demonstrated pulmonary edema. She received furosemide [address] of the head was negative for anything acute. Bilateral lower extremity venous Doppler was negative for DVT. BUN 26, creatinine 1.4 and GFR 39. Past Medical History: As per HPI and summarized below Past Surgical History: CABG x3 in 2008 ICD placement with a [employer] scientific device November 2012 with generator replacement 05/16/2017 Family History: The patient denies a family history of heart disease. Social History: The patient lives with family. Habits: The patient denies alcohol, tobacco, or illicit drug use. Home Meds: Metoprolol tartrate 25 mg, half a tab b.i.d. Entresto 2426 mg b.i.d. Clopidogrel 75 mg daily Furosemide 40 mg daily Rosuvastatin5 mg daily Ezetimibe 10 mg daily Cyanocobalamin 1000 mcg daily Glimepiride1 mg daily [id number] mcg daily Omeprazole 40 mg daily Breo Ellipta as directed Current Meds: Current Medications Medications Dose Ordered Sig/Fracisco Start Time Stop Time Status Last Admin Aspirin 325 mg ONCE 07/16/24 14:30 07/16/24 21:30 07/16/24 14:36 Insulin Human Regular INSULIN SLIDING SCAL... ACHS 07/16/24 16:30 08/15/24 16:29 Pantoprazole Sodium 80 mg/ Sodium Chloride 100 ml @ 10 mls/hr Q10H 07/16/24 16:00 08/15/24 15:59 07/16/24 18:35 Ondansetron HCl 4 mg Q6H PRN 07/16/24 16:30 08/15/24 16:29 Acetaminophen 500 mg Q6H PRN 07/16/24 16:30 08/15/24 16:29 Budesonide 0.5 mg BIDRESP 07/16/24 18:00 08/15/24 17:59 07/16/24 19:59 Furosemide 20 mg Q8H 07/16/24 19:00 08/15/24 18:59 07/16/24 20:10 Potassium Chloride 100 ml @ 100 mls/hr AD PRN 07/16/24 17:30 08/15/24 17:29 Potassium Chloride 20 meq AD PRN 07/16/24 17:30 08/15/24 17:29 Potassium Chloride 20 meq AD PRN 07/16/24 17:30 08/15/24 17:29 Magnesium Sulfate 50 ml @ 0 mls/hr PROTOCOL 07/16/24 17:30 08/15/24 17:29 Vitamin B Complex 1,000 mcg DAILY 07/17/24 09:00 08/16/24 08:59 EZETIMIBE 10 mg DAILY 07/17/24 09:00 08/16/24 08:59 Metoprolol Tartrate 12.5 mg BID 07/16/24 21:00 08/15/24 20:59 Sacubitril/ Valsartan 1 each BID 07/16/24 21:00 08/15/24 20:59 Home Med (Fluticasone/ Vilanterol (B... DAILY 07/17/24 09:00 08/16/24 08:59 Atorvastatin Calcium 40 mg HS 07/16/24 21:00 08/15/24 20:59 Review of Systems: CONST: No fever, fatigue, or weight changes. EYES: No recent vision problems. ENT: No congestion, ear pain, or sore throat. C/V: No chest pain, palpitations, or edema. RESP: No cough, congestion, wheezing or shortness of breath. GI: No abdominal pain, nausea, vomiting, constipation, or diarrhea. : No incontinence or dysuria. SKIN: No rash. NEURO: No headache, focal numbness or weakness, dizziness, or seizures. PSYCH: No depression or anxiety. HEME: No abnormal bruising or bleeding. LYMPH: No swollen glands. Physical Examination: GENERAL: No acute distress. HEAD: Normal with no signs of head trauma. EYES: PERRLA, EOMI, conjunctiva and sclera normal. ENT: Hearing grossly intact, normal oropharynx. NECK: Supple without JVD. There is no tenderness, lymphadenopathy, or masses. No thyromegaly. Normal carotid upstrokes without bruits. LUNGS: Clear breath sounds bilaterally. No wheezes, or rhonchi. HEART: Irregularly irregular rate and rhythm. Normal S1 and S2 without murmurs, gallop or rub. VASC: Bilateral DP pulses 2+. ABD: Bowel sounds normal, soft, nontender, no masses, no organomegaly. No audible bruits. : Not examined LYMPH: No lymphadenopathy noted. EXT: No clubbing or cyanosis. BLE 1+ edema. SKIN: No rashes or lesions noted. NEURO: Awake, alert, and oriented x3. No focal sensory or strength deficits noted. Vital Signs (last 8hr) Date Time Temp Pulse Resp B/P (MAP) Pulse Ox O2 Delivery O2 Flow Rate FiO2 07/16/24 18:53 64 16 128/44 99 Room Air* 0 21 07/16/24 17:21 64 12 112/47 96 Room Air* 0 21 07/16/24 12:50 69 15 134/52 73 Room Air* 0 07/16/24 12:27 97.9 76 20 119/37 97 Room Air 0 Laboratory: Hematology Labs: Test 07/16/24 12:39 Range/Units White Blood Count 7.6 4.8-10.8 K/uL Red Blood Count 2.81 L 4.00-5.50 MIL/uL Hemoglobin 8.7 L 12.0-16.0 g/dL Hematocrit 28.1 L 36-48 % Mean Corpuscular Volume 100.0 H 79-99 fL Mean Corpuscular Hemoglobin 31.0 27.0-33.0 pg Mean Corpuscular Hemoglobin Concent 31.0 L 32.0-36.0 g/dL Red Cell Distribution Width 15.9 H 11.0-15.5 % Platelet Count 248 130-400 K/uL Mean Platelet Volume 10.1 7.5-10.5 fL Immature Granulocyte % (Auto) 0.4 0-1 % Neutrophils (%) (Auto) 67.9 40.0-77.0 % Lymphocytes (%) (Auto) 23.1 21.0-51.0 % Monocytes (%) (Auto) 7.0 3.0-13.0 % Eosinophils (%) (Auto) 1.1 0.0-8.0 % Basophils (%) (Auto) 0.5 0.0-5.0 % Neutrophils # (Auto) 5.1 1.8-7.7 K/uL Lymphocytes # (Auto) 1.8 1.0-4.8 K/uL Monocytes # (Auto) 0.5 0.1-1.0 K/uL Eosinophils # (Auto) 0.08 0.00-0.70 K/uL Basophils # (Auto) 0.04 0.00-0.20 K/uL Absolute Immature Granulocyte (auto 0.03 0-1 K/uL Nucleated Red Blood Cells 0.0 0.0-0.19 % Red Blood Cell Morphology See comments Chemistry Labs: Test 07/16/24 13:53 07/16/24 12:39 Range/Units Troponin I High Sensitivity 864 *H 4-50 ng/L Sodium Level 144 136-145 mmol/L Potassium Level 4.1 3.5-5.1 mmol/L Chloride Level 110 101-111 mmol/L Carbon Dioxide Level 26 21-32 mmol/L Blood Urea Nitrogen 26 H 7-18 mg/dL Creatinine 1.4 H 0.5-1.0 mg/dL Glomerular Filtration Rate Calc 39 >90 mL/min Random Glucose 127 H 70-105 mg/dL Hemoglobin A1c 6.4 H 4.0-6.0 % Estimated Average Glucose (eAG) 137 H 70-126 mg/dL Total Calcium 9.0 8.5-10.1 mg/dL Magnesium Level 2.40 1.80-2.40 mg/dL Total Bilirubin 0.5 0.2-1.0 mg/dL Direct Bilirubin 0.2 0.0-0.3 mg/dL Aspartate Amino Transf (AST/SGOT) 17 10-37 U/L Alanine Aminotransferase (ALT/SGPT) 13 12-78 U/L Alkaline Phosphatase 85 50-136 U/L Total Creatine Kinase 30 # 21-232 U/L C-Reactive Protein, Quantitative 2.40 0.5-3.0 mg/L B-Type Natriuretic Peptide 501 H 0-100 pg/mL Total Protein 6.5 6.0-8.3 g/dL Albumin 2.9 L 3.5-5.0 g/dL Procalcitonin 0.05 0.05-0.5 ng/mL Thyroid Stimulating Hormone (TSH) 1.08 # 0.36-3.74 uIU/mL Coagulation Labs: Test 07/16/24 12:39 Range/Units Prothrombin Time 11.2 9.6-11.6 SEC Prothromb Time International Ratio 1.00 0.85-1.15 Activated Partial Thromboplast Time 25.0 L 26.3-35.5 SEC Diagnostics / Radiology: Impression and Plan: NSTEMI likely type II due to anemia and acute CHF exacerbation Acute on chronic combined systolic and diastolic heart failure Anemia Hypertension Diabetes mellitus type 2 Remote myocardial infarction in 2008 Paroxysmal atrial fibrillation on chronic anticoagulation with Eliquis started on 06/23/2024 CAD status post CABG x3 in 2008 with documented inoperable CAD September 2012 2D echo on 05/29/2022 with an EF of 30%, stage III diastolic dysfunction, [id number] MR, and severe global hypokinesis Ischemic cardiomyopathy with an EF less than 35% ICD placement with a [employer] scientific device November 2012 with generator replacement 05/16/2017 Possible atrial lead malfunction Carotid artery disease with 50-70% right internal carotid artery stenosis and greater than 70% left internal carotid artery stenosis by Doppler February 2021 CKD COPD NSTEMI likely type II due to anemia and acute CHF exacerbation Troponin levels of 934 and 864 EKG on admission demonstrated normal sinus rhythm with a heart rate of 71bpm, possible old anterior infarct, and a prolonged QTC of 549ms -Continue metoprolol tartrate 12.5 mg b.i.d. -Hold Aspirin and Antiplatelets -Troponin in AM to assess trend -No plans for ischemic work-up Acute on chronic combined systolic and diastolic heart failure BNP level was 501 Chest x-ray demonstrated pulmonary edema She received furosemide 20 mg IV x1 in the ED -Continue Lasix 20mg IV q 8hrs, Metoprolol tartrate 12.5 mg b.i.d., and Entresto 24-26 mg b.i.d. -BMP, Mg and Chest x-ray in AM -Strict intake and output, daily weights, and a 1.5 L fluid restriction per day -Med team ordered a 2D Echo to assess LV function Anemia Hemoglobin of 8.7 with a Hematocrit of 28.1 Positive occult stool. She admits to black stool for approximately one week. Recent initiation of Eliquis 5mg BID and Aspirin 81mg daily on 06/23/2024 -She is maintained on a Protonix drip -Pending a GI consultation -CBC in am ATTESTATION BY PHYSICIAN I have seen and examined the patient, reviewed the above documentation, participated in medical decision making, made necessary modifications, and agree with the treatment plan as documented by my mid-level provider above. MD LAWRENCE Cruz [facility] Jul 16, 2024 20:30 SOHA BOLDEN MD Jul 16, 2024 22:25
[2024-07-16 20:31] LABS: RETICULOCYTE % (AUTO) 3.15 % (0.42-2.23)
[2024-07-16 20:42] LABS: % IRON SATURATION 8.5 % (22-44)
[2024-07-16 20:52] LABS: MAGNESIUM 2.4 mg/dL (1.80-2.40); POTASSIUM 4.7 mmol/L (3.5-5.1)
[2024-07-16] MEDS: SACUBITRIL/VALSARTAN 1 EACH TABLET PO SCH (21:00)
[2024-07-16] MEDS: atorVAStatin 40 MG TABLET PO SCH (21:25)
[2024-07-16] MEDS: metoPROLOL tartRATE 25 MG TAB PO SCH (21:25)
--- NOTE | 2024-07-16 21:58 | NUR ---
INTERROGATED [employer]ICE BUT MACHINE UNABLE TO SEND DATA. CALLED [employer]ELOP[employer] SPECIALIST, SPOKE WITH HOUSING DEVELOPMENT SPECIALIST TO TRY TO TTROUBLESHOOT THE PROBLEM. STILL UNABLE TO SEND DATA FROM MACHINE. PER HOUSING DEVELOPMENT SPECIALIST, SOMEONE WILL COME TO INTERROGATE PACEMAKER AND TROUBLESHOOT THE PROBLEM WITH THE MACHINE.
--- NOTE | 2024-07-16 23:38 | CONS ---
GASTROENTEROLOGY CONSULTATION NOTE Date of Consultation: Jul 16, 2024 Time of Consultation: 23:38 History of Present Illness: This is a 78-year-old female with past medical history of type 2 diabetes, CKD, hypertension, hyperlipidemia, CAD with remote AR, CABG with a EF less than 30%. She is on chronic Eliquis due to AICD placement. She presented with CHF exacerbation however we were consulted due to downtrending hemoglobin from baseline. Hemoglobin was 8.7 with a platelet count of 248 and INR of 1. She had a positive FOBT. Troponin elevated. Review of Systems: CONSTITUTIONAL: No malaise or change in sensation of wellbeing. ENMT: No rhinorrhea, otorrhea, sinus pain, ear ache. CARDIOVASCULAR: No angina, palpitations, orthopnea or paroxysmal dyspnea. RESPIRATORY: No SOB. GASTROINTESTINAL: No abdominal pain, nausea, vomiting, diarrhea, hematemesis, melena or change in the patient's habitual bowel movements consistency/number. GENITOURINARY: No dysuria, hematuria or change in bladder continence. MUSCULOSKELETAL: No new muscle pain or decrease in muscular strength. No new joint swelling, redness or tenderness. SKIN: No new rash. Past Medical History: [ ] Past Surgical History: [ ] Past Social History: [ ] Family History: [ ] Coded Allergies: No Known Drug Allergies (Verified Allergy, 09/21/12) Physical Exam: GEN: Awake, alert, oriented in person, time and place, and in no acute distress. HEENT: No sinus tenderness. Tympanic membranes were not examined. No rhinorrhea. Oral pharyngeal mucosa is pink, moist and within normal limits. Neck is supple with no cervical lymphadenopathy, thyromegaly or JVD. CHEST: Inspection, palpation and percussion of the chest were unremarkable. Lung auscultation revealed normal breath sounds bilaterally. CARDIAC: PMI is within normal limits. Heart sounds are regular. Normal S1, S2. No gallop or murmur. ABD: Soft, non-tender and not distended. No peritoneal signs on palpation. No organomegaly. Normal bowel sounds. EXT: No cyanosis or clubbing. No edema. SKIN: Intact. No rashes. JOINTS: No evidence of synovitis or acute arthritis. NEURO: Alert and oriented to name, place and person. Cranial nerve examination is unremarkable. No focal motor deficits. Normal speech. Gait is normal. Strength is normal. Vital Sign (Last 24 Hours) 07/16/24 20:55 Temp 98.4 Pulse 72 Resp 18 B/P (MAP) 116/39 Pulse Ox 98 O2 Delivery Room Air* O2 Flow Rate 0 FiO2 21 Laboratory: [ ] Laboratory: Test 07/16/24 20:11 07/16/24 14:54 07/16/24 14:45 07/16/24 12:39 Range/Units Hemoglobin 8.5 L 12.0-16.0 g/dL Hematocrit 28.5 L 36-48 % Erythrocyte Sedimentation Rate 31 H 0-30 MM/HR Reticulocyte Count (auto) 3.69208 H 0.42-2.23 % Immature Reticulocyte Fraction 28.90 H 0.18-0.48 % Potassium Level 4.7 3.5-5.1 mmol/L Magnesium Level 2.40 1.80-2.40 mg/dL Iron Level 32 L 50-170 mcg/dL Total Iron Binding Capacity 376 250-450 mcg/dL Percent Iron Saturation 8.5 L 22-44 % Ferritin 22 15-150 ng/mL Total Creatine Kinase 31 21-232 U/L Troponin I High Sensitivity 910 *H 4-50 ng/L Vitamin B12 Level 549 193-986 pg/mL Folic Acid (LAB) 10.90 2-20 ng/mL Stool Occult Blood POSITIVE H NEGATIVE Urine Color LIGHT-YELLOW YELLOW Urine Appearance CLEAR CLEAR Urine pH 5.5 5.0-8.0 Urine Specific [place] 1.021 1.001-1.031 Urine Protein 20 H NEGATIVE mg/dL Urine Glucose (UA) NEGATIVE NEGATIVE mg/dL Urine Ketones NEGATIVE NEGATIVE mg/dL Urine Occult Blood NEGATIVE NEGATIVE Urine Nitrate NEGATIVE NEGATIVE Urine Bilirubin NEGATIVE NEGATIVE mg/dL Urine Urobilinogen 0.2 0.2-1.0 mg/dL Urine Leukocyte Esterase NEGATIVE NEGATIVE Ronny/uL Urine RBC 0-1 0-1 /HPF Urine WBC 2-5 H 0-1 /HPF Urine Squamous Epithelial Cells RARE 0-2 /HPF Urine Bacteria RARE None Seen /HPF Urine Hyaline Casts 2-5 H 0-1 /LPF /LPF White Blood Count 7.6 4.8-10.8 K/uL Red Blood Count 2.81 L 4.00-5.50 MIL/uL Mean Corpuscular Volume 100.0 H 79-99 fL Mean Corpuscular Hemoglobin 31.0 27.0-33.0 pg Mean Corpuscular Hemoglobin Concent 31.0 L 32.0-36.0 g/dL Red Cell Distribution Width 15.9 H 11.0-15.5 % Platelet Count 248 130-400 K/uL Mean Platelet Volume 10.1 7.5-10.5 fL Immature Granulocyte % (Auto) 0.4 0-1 % Neutrophils (%) (Auto) 67.9 40.0-77.0 % Lymphocytes (%) (Auto) 23.1 21.0-51.0 % Monocytes (%) (Auto) 7.0 3.0-13.0 % Eosinophils (%) (Auto) 1.1 0.0-8.0 % Basophils (%) (Auto) 0.5 0.0-5.0 % Neutrophils # (Auto) 5.1 1.8-7.7 K/uL Lymphocytes # (Auto) 1.8 1.0-4.8 K/uL Monocytes # (Auto) 0.5 0.1-1.0 K/uL Eosinophils # (Auto) 0.08 0.00-0.70 K/uL Basophils # (Auto) 0.04 0.00-0.20 K/uL Absolute Immature Granulocyte (auto 0.03 0-1 K/uL Nucleated Red Blood Cells 0.0 0.0-0.19 % Red Blood Cell Morphology See comments Prothrombin Time 11.2 9.6-11.6 SEC Prothromb Time International Ratio 1.00 0.85-1.15 Activated Partial Thromboplast Time 25.0 L 26.3-35.5 SEC Sodium Level 144 136-145 mmol/L Chloride Level 110 101-111 mmol/L Carbon Dioxide Level 26 21-32 mmol/L Blood Urea Nitrogen 26 H 7-18 mg/dL Creatinine 1.4 H 0.5-1.0 mg/dL Glomerular Filtration Rate Calc 39 >90 mL/min Random Glucose 127 H 70-105 mg/dL Hemoglobin A1c 6.4 H 4.0-6.0 % Estimated Average Glucose (eAG) 137 H 70-126 mg/dL Total Calcium 9.0 8.5-10.1 mg/dL Total Bilirubin 0.5 0.2-1.0 mg/dL Direct Bilirubin 0.2 0.0-0.3 mg/dL Aspartate Amino Transf (AST/SGOT) 17 10-37 U/L Alanine Aminotransferase (ALT/SGPT) 13 12-78 U/L Alkaline Phosphatase 85 50-136 U/L C-Reactive Protein, Quantitative 2.40 0.5-3.0 mg/L B-Type Natriuretic Peptide 501 H 0-100 pg/mL Total Protein 6.5 6.0-8.3 g/dL Albumin 2.9 L 3.5-5.0 g/dL Procalcitonin 0.05 0.05-0.5 ng/mL Thyroid Stimulating Hormone (TSH) 1.08 # 0.36-3.74 uIU/mL Influenza Type A Antigen Negative For Type A NEGATIVE Influenza Type B Antigen Negative For Type B NEGATIVE SARS-CoV-2 Antigen (Rapid) PRESUMPTIVE NEGATIVE NEGATIVE Current Medications Medications (Trade) Dose Ordered Sig/Fracisco Route PRN Reason Start Time Stop Time Status Last Admin Dose Admin Acetaminophen (TYLenol 500MG TAB) 500 mg Q6H PRN PO MILD PAIN (1-3) 07/16/24 16:30 08/15/24 16:29 Aspirin (Aspirin 325mg Tab) 325 mg ONCE PO 07/16/24 14:30 07/16/24 21:30 DC 07/16/24 14:36 325 MG Atorvastatin Calcium (LIPItor 40MG) 40 mg HS PO 07/16/24 21:00 08/15/24 20:59 07/16/24 21:25 40 MG Budesonide (Pulmicort 0.5 Mg/2ml) 0.5 mg BIDRESP IH 07/16/24 18:00 08/15/24 17:59 07/16/24 19:59 0.5 MG EZETIMIBE (Zetia) 10 mg DAILY PO 07/17/24 09:00 08/16/24 08:59 Furosemide (LASix 20MG VIAL) 20 mg ONCE IV 07/16/24 14:30 07/16/24 16:03 DC 07/16/24 14:36 20 MG Furosemide (LASix 20MG VIAL) 20 mg Q8H IV 07/16/24 18:00 07/16/24 17:30 DC Furosemide (LASix 20MG VIAL) 20 mg Q8H IV 07/16/24 19:00 08/15/24 18:59 07/16/24 20:10 20 MG Home Med (Home Medication) (Fluticasone/ Vilanterol (B... DAILY IH 07/17/24 09:00 08/16/24 08:59 Insulin Human Regular (humuLIN R 100 UNIT/ML 3ML) INSULIN SLIDING SCAL... ACHS SQ 07/16/24 16:30 08/15/24 16:29 Iron Sucrose 300 mg/Sodium Chloride 250 ml @ 83 mls/hr DAILY IV 07/17/24 14:00 07/19/24 14:00 UNV Magnesium Sulfate 50 ml @ 0 mls/hr PROTOCOL IV 07/16/24 17:30 08/15/24 17:29 Metoprolol Tartrate (loprESSOR) 12.5 mg BID PO 07/16/24 21:00 08/15/24 20:59 07/16/24 21:25 12.5 MG Ondansetron HCl (zoFRAN 4MG INJ) 4 mg Q6H PRN IVP NAUSEA/VOMITING 07/16/24 16:30 08/15/24 16:29 Pantoprazole Sodium 80 mg/ Sodium Chloride 100 ml @ 10 mls/hr Q10H IVP 07/16/24 16:00 08/15/24 15:59 07/16/24 18:35 10 MLS/HR Potassium Chloride 100 ml @ 100 mls/hr AD PRN IV POTASSIUM PROTOCOL 07/16/24 17:30 08/15/24 17:29 Potassium Chloride (K-Dur/Klor-Con 20meq) 20 meq AD PRN PO POTASSIUM PROTOCOL 07/16/24 17:30 08/15/24 17:29 Potassium Chloride (KCl 10% Elixir 20meq/15ml) 20 meq AD PRN PO POTASSIUM PROTOCOL 07/16/24 17:30 08/15/24 17:29 Sacubitril/ Valsartan (Entresto 24 Mg-26 Mg Tablet) 1 each BID PO 07/16/24 21:00 08/15/24 20:59 Vitamin B Complex (Vitamin B-12) 1,000 mcg DAILY PO 07/17/24 09:00 08/16/24 08:59 Diagnostics / Radiology: [COPY/PASTE HERE IF NO REPORTS PLEASE DELETE SECTION] Assessment: Positive FOBT CHF exacerbation Elevated troponin Plan: Hold of on EGD given elevated troponin and CHF exacerbation Will monitor closely VANI RODRIGUEZ RN ANESTHETIST Jul 16, 2024 23:38
--- NOTE | 2024-07-16 23:45 | NUR ---
PHARMACY CALLED RN FOR ORDER CLARIFICATION OF IRON SUCROSE 300MG IV. PER STEPHANIE ANTHROPOLOGY LECTURER, SINCE MEDICATION IS NOT DUE TILL TOMORROW, CAN CLARIFY WITH DR. WEBB TOMORROW.
[2024-07-17] VITALS (11 sets, daily range): BP systolic 116–133; BP diastolic 46–68; PULSE 60–71; RESP 16–20; TEMP 97–98.1; O2SAT 95–99
[2024-07-17] MEDS: acetaMINOPHEN 500 MG TABLET PO PRN (01:09)
--- NOTE | 2024-07-17 03:35 | NUR ---
HANDOFF REPORT GIVEN TO KARLA GUILLORY. PT GOING TO ROOM 227
[2024-07-17 04:16] LABS: HEMATOCRIT 26.9 % (36-48); MEAN CORPUSCULAR HEMOGLOBIN 30.9 pg (27.0-33.0); MEAN CORPUSCULAR HGB CONC 30.9 g/dL (32.0-36.0); RED BLOOD CELL COUNT(AUTO) 2.69 MIL/uL (4.00-5.50); RED CELL DISTRIBUTION WIDTH 15.9 % (11.0-15.5); WHITE BLOOD COUNT (AUTO) 7.4 K/uL (4.8-10.8)
[2024-07-17 04:34] LABS: CREATININE 1.6 mg/dL (0.5-1.0); MAGNESIUM 2.2 mg/dL (1.80-2.40); POTASSIUM 4.5 mmol/L (3.5-5.1)
[2024-07-17] MEDS ORDERED: COMPOUND IV MISC 1 EACH IVSOLN MISC PRN (07:00)
--- NOTE | 2024-07-17 09:02 | HMCIMG ---
Exam Type: CHEST 1VW Clinical Information: ASSESS FOR IMPROVEMENT OF PULMONARY EDEMA Comparison: None Findings: Pulmonary pattern is as before. No worrisome interval changes have taken place. Impression: Stable exam.
[2024-07-17] MEDS: CYANOCOBALAMIN (VITAMIN B-12) 1,000 MCG TABLET PO SCH (09:37)
[2024-07-17] MEDS: EZETIMIBE 10 MG TAB PO SCH (09:37)
[2024-07-17] MEDS: VILANTEROL IH SCH (09:38)
[2024-07-17] MEDS: FLUTICASONE IH SCH (09:38)
[2024-07-17] MEDS: IRON sUCROse COMPLEX 300 MG in 0.9% NACL 250ML 250 ML IV SCH (09:52)
[2024-07-17] MEDS ORDERED: NITROGLYCERIN 1GM OINT 1 INCH/1GM TD PRN (10:00)
[2024-07-17] MEDS ORDERED: COMPOUND IV REFRIGERATED 1 EACH IVSOLN MISC PRN (12:00)
--- NOTE | 2024-07-17 13:20 | PN ---
[facility] CARDIOLOGY PROGRESS NOTE Cardiology progress note dictated for Claude Atkinson MD Date Patient Seen: Jul 17, 2024 Interval History: The patient presented to the ED with complaints of chest pressure, shortness of breath, and fatigue for 1 week. The patient was found to have a hemoglobin of 8.7, hematocrit of 28.1 and a positive occult stool. Of note, the patient was started on Eliquis 5 mg b.i.d. on 06/23/2024 when paroxysmal atrial fibrillation was found on her device check. She was also to take aspirin 81 mg daily and di scontinue clopidogrel 75 mg daily. She admits to stopping Eliquis due to dizziness 1 week ago. She did notice her stools were black but denies any hematochezia or hematuria. She is maintained on a Protonix drip. She currently denies chest pain, chest pressure, palpitations, dizziness, shortness of breath, orthopnea, PND, nausea, or vomiting. Telemetry demonstrated normal sinus rhythm. Physical Examination: GENERAL: No acute distress. HEAD: Normal with no signs of head trauma. EYES: PERRLA, EOMI, conjunctiva and sclera normal. NECK: Supple without JVD. There is no tenderness, lymphadenopathy, or masses. No thyromegaly. Normal carotid upstrokes without bruits. LUNGS: Clear breath sounds bilaterally. No wheezes, or rhonchi. HEART: Irregularly irregular. Normal S1 and S2 without murmurs, gallop or rub. VASC: Bilateral DP pulses 2+. Bilateral extremities with trace edema. EXT: No clubbing, cyanosis or edema. NEURO: Awake, alert, and oriented x3. No focal neurological deficits noted. Laboratory: Hematology Labs: Test 07/17/24 04:03 07/16/24 20:11 07/16/24 12:39 Range/Units White Blood Count 7.4 4.8-10.8 K/uL Red Blood Count 2.69 L 4.00-5.50 MIL/uL Hemoglobin 8.3 L 12.0-16.0 g/dL Hematocrit 26.9 L 36-48 % Mean Corpuscular Volume 100.0 H 79-99 fL Mean Corpuscular Hemoglobin 30.9 27.0-33.0 pg Mean Corpuscular Hemoglobin Concent 30.9 L 32.0-36.0 g/dL Red Cell Distribution Width 15.9 H 11.0-15.5 % Platelet Count 249 130-400 K/uL Mean Platelet Volume 10.0 7.5-10.5 fL Nucleated Red Blood Cells 0.0 0.0-0.19 % Erythrocyte Sedimentation Rate 31 H 0-30 MM/HR Reticulocyte Count (auto) 3.78361 H 0.42-2.23 % Immature Reticulocyte Fraction 28.90 H 0.18-0.48 % Immature Granulocyte % (Auto) 0.4 0-1 % Neutrophils (%) (Auto) 67.9 40.0-77.0 % Lymphocytes (%) (Auto) 23.1 21.0-51.0 % Monocytes (%) (Auto) 7.0 3.0-13.0 % Eosinophils (%) (Auto) 1.1 0.0-8.0 % Basophils (%) (Auto) 0.5 0.0-5.0 % Neutrophils # (Auto) 5.1 1.8-7.7 K/uL Lymphocytes # (Auto) 1.8 1.0-4.8 K/uL Monocytes # (Auto) 0.5 0.1-1.0 K/uL Eosinophils # (Auto) 0.08 0.00-0.70 K/uL Basophils # (Auto) 0.04 0.00-0.20 K/uL Absolute Immature Granulocyte (auto 0.03 0-1 K/uL Red Blood Cell Morphology See comments Chemistry Labs: Test 07/17/24 04:03 07/16/24 20:11 07/16/24 12:39 Range/Units Sodium Level 144 136-145 mmol/L Potassium Level 4.5 3.5-5.1 mmol/L Chloride Level 110 101-111 mmol/L Carbon Dioxide Level 27 21-32 mmol/L Blood Urea Nitrogen 30 H 7-18 mg/dL Creatinine 1.6 H 0.5-1.0 mg/dL Glomerular Filtration Rate Calc 33 >90 mL/min Random Glucose 92 70-105 mg/dL Total Calcium 9.1 8.5-10.1 mg/dL Magnesium Level 2.20 1.80-2.40 mg/dL Troponin I High Sensitivity 760 *H 4-50 ng/L Iron Level 32 L 50-170 mcg/dL Total Iron Binding Capacity 376 250-450 mcg/dL Percent Iron Saturation 8.5 L 22-44 % Ferritin 22 15-150 ng/mL Total Creatine Kinase 31 21-232 U/L Vitamin B12 Level 549 193-986 pg/mL Folic Acid (LAB) 10.90 2-20 ng/mL Hemoglobin A1c 6.4 H 4.0-6.0 % Estimated Average Glucose (eAG) 137 H 70-126 mg/dL Total Bilirubin 0.5 0.2-1.0 mg/dL Direct Bilirubin 0.2 0.0-0.3 mg/dL Aspartate Amino Transf (AST/SGOT) 17 10-37 U/L Alanine Aminotransferase (ALT/SGPT) 13 12-78 U/L Alkaline Phosphatase 85 50-136 U/L C-Reactive Protein, Quantitative 2.40 0.5-3.0 mg/L B-Type Natriuretic Peptide 501 H 0-100 pg/mL Total Protein 6.5 6.0-8.3 g/dL Albumin 2.9 L 3.5-5.0 g/dL Procalcitonin 0.05 0.05-0.5 ng/mL Thyroid Stimulating Hormone (TSH) 1.08 # 0.36-3.74 uIU/mL Coagulation Labs: Test 07/16/24 12:39 Range/Units Prothrombin Time 11.2 9.6-11.6 SEC Prothromb Time International Ratio 1.00 0.85-1.15 Activated Partial Thromboplast Time 25.0 L 26.3-35.5 SEC Diagnostics / Radiology: Impression and Plan: NSTEMI likely type II due to anemia and acute CHF exacerbation Acute on chronic combined systolic and diastolic heart failure Anemia Hypertension Diabetes mellitus type 2 Remote myocardial infarction in 2008 Paroxysmal atrial fibrillation on chronic anticoagulation with Eliquis started on 06/23/2024 CAD status post CABG x3 in 2008 with documented inoperable CAD September 2012 2D echo on 05/29/2022 with an EF of 30%, stage III diastolic dysfunction, [id number] MR, and severe global hypokinesis Ischemic cardiomyopathy with an EF less than 35% ICD placement with a [employer] device November 2012 with generator replacement 05/16/2017 Possible atrial lead malfunction Carotid artery disease with 50-70% right internal carotid artery stenosis and greater than 70% left internal carotid artery stenosis by Doppler February 2021 CKD COPD NSTEMI likely type II due to anemia and acute CHF exacerbation Troponin levels of 934, 864, 910, and 760 EKG on admission demonstrated normal sinus rhythm with a heart rate of 71bpm, possible old anterior infarct, and a prolonged QTC of 549ms -Continue metoprolol tartrate 12.5 mg b.i.d. -Hold Aspirin and Antiplatelets -No plans for an ischemic work-up Acute on chronic combined systolic and diastolic heart failure BNP level was 501 Chest x-ray on admission and repeat today demonstrated pulmonary edema -Continue Lasix 20mg IV q 8hrs, Metoprolol tartrate 12.5 mg b.i.d., and Entresto 24-26 mg b.i.d. -Strict intake and output, daily weights, and a 1.5 L fluid restriction per day -Med team ordered a 2D Echo to assess LV function, pending to be read Anemia Positive occult stool. She admits to black stool for approximately one week. Recent initiation of Eliquis 5mg BID and Aspirin 81mg daily on 06/23/2024 -She is maintained on a Protonix drip -GI will hold off on doing an EGD until CHF exacerbation improves and due to her elevated troponin levels GIOVANNA BRAVO REGRINDER Jul 17, 2024 13:20
--- NOTE | 2024-07-17 13:31 | HMCSR ---
APPROVED REPORT EXAM: Two-dimensional and M-mode echocardiogram with Doppler and color Doppler. INDICATION ICD: Heart Failure, NSTEMI 2D Dimensions RVDd4.3 cmLVEF(%)32.5 (>50%)LVED Vol(simp.)63.5 mL IVSd1.1 (0.7-1.1cm)FS(%)15 %LVES Vol(simp.)43.1 mL LVDd5.2 (3.8-5.6cm)LA (2D)5.1 (1.6-4.0cm)LVEF(%, simp.)32 % PWd1.1 (0.7-1.1cm)Ao Root(2D)2.7 (2.0-3.7cm)LA ESV INDEX (4CH)46.70 mL/m2 IVSs1.0 cmLVOT diam1.8 (1.8-2.4cm)LA ESV INDEX (2CH)44.30 mL/m2 LVDs4.4 (2.5-4.0cm)LA ESV INDEX (BP)46.20 mL/m2 PWs1.1 cm Deformation Strain Apical 410.0 % Apical 212.0 % Apical 313.0 % Global Gzwefi64.0 % M-Mode Dimensions EPSS1.3 cm LA (MM)5.7 (1.6-4.0cm) Ao Root(MM)2.6 (2.0-3.7cm) Aortic Valve AoV VTI0.3 mAo Mean GR4.0 mmHgLVOT VTI0.12 m SIMON (VMAX)1.1 cm2Al P1/2T510 msAVA (VTI) 1.1 cm2 Mitral Valve MV E Hxjm372.4 cm/sDECEL Jweb214 ms MV A Vmax29.6 cm/sP 1/2 T46 ms E/A ratio4.5MVA (PHT)4.8 cm2 MR Max PG99 mmHg TDI E/E' Dmwssy10.1E/E' Wzmsrjk22.0 Medial E' Peak V3.60 cm/sLateral E' Peak V5.80 cm/s Tricuspid Valve TR Vmax2.7 m/sRAP (EST) 8 rdDdRQEG91.0 mmHg TR Peak GR31.0 mmHg Left Ventricle The left ventricle is normal size. GLS -12.0%. Mild-moderate global hypokinesis There is normal left ventricular wall thickness. Estimated ejection fraction at 30-35% Right Ventricle The right ventricle is mildly dilated. Right ventricular systolic function is moderately to severely reduced. AICD lead is present in the right ventricle. Atria The left atrium is moderately dilated. The right atrium is moderately to severly dilated. Aortic Valve The aortic valve is normal in structure. Trace of aortic regurgitation is present. There is no aortic valvular stenosis. Mitral Valve The mitral valve is mildly thickened. There is mild mitral valve regurgitation noted. There is no mayte ral valve stenosis. Tricuspid Valve The tricuspid valve is normal in structure. There is trace of tricuspid valve regurgitation noted. Pulmonic Valve The pulmonary valve is normal in structure. There is no pulmonic valvular regurgitation. Great Vessels The aortic root is normal in size. The IVC is normal in size and collapses <50% with inspiration. Pericardium There is no pericardial effusion. Other Information Quality : Fair Conclusion The right ventricle is mildly dilated. AICD lead is present in the right ventricle. There is mild mitral valve regurgitation noted. Trace of aortic regurgitation is present.
--- NOTE | 2024-07-17 15:15 | PN ---
GASTROENTEROLOGY PROGRESS NOTE Date of Visit: Jul 17, 2024 Time of Visit: 15:15 Events / Notes: [ ] Review of Systems: CONSTITUTIONAL: No malaise or change in sensation of wellbeing. ENMT: No rhinorrhea, otorrhea, sinus pain, ear ache. CARDIOVASCULAR: No angina, palpitations, orthopnea or paroxysmal dyspnea. RESPIRATORY: No SOB. GASTROINTESTINAL: No abdominal pain, nausea, vomiting, diarrhea, hematemesis, melena or change in the patient's habitual bowel movements consistency/number. GENITOURINARY: No dysuria, hematuria or change in bladder continence. MUSCULOSKELETAL: No new muscle pain or decrease in muscular strength. No new joint swelling, redness or tenderness. SKIN: No new rash. Physical Exam: GEN: Awake, alert, oriented in person, time and place, and in no acute distress. HEENT: No sinus tenderness. Tympanic membranes were not examined. No rhinorrhea. Oral pharyngeal mucosa is pink, moist and within normal limits. Neck is supple with no cervical lymphadenopathy, thyromegaly or JVD. CHEST: Inspection, palpation and percussion of the chest were unremarkable. Lung auscultation revealed normal breath sounds bilaterally. CARDIAC: PMI is within normal limits. Heart sounds are regular. Normal S1, S2. No gallop or murmur. ABD: Soft, non-tender and not distended. No peritoneal signs on palpation. No organomegaly. Normal bowel sounds. EXT: No cyanosis or clubbing. No edema. SKIN: Intact. No rashes. JOINTS: No evidence of synovitis or acute arthritis. NEURO: Alert and oriented to name, place and person. Cranial nerve examination is unremarkable. No focal motor deficits. Normal speech. Gait is normal. Strength is normal. Vital Signs (last 8hr) Date Time Temp Pulse Resp B/P (MAP) Pulse Ox O2 Delivery O2 Flow Rate FiO2 07/17/24 11:00 98.1 62 16 116/46 99 Room Air 07/17/24 08:00 99 Room Air* 0 21 Laboratory: [ ] Laboratory: Test 07/17/24 04:03 07/16/24 20:11 07/16/24 14:54 07/16/24 14:45 Range/Units White Blood Count 7.4 4.8-10.8 K/uL Red Blood Count 2.69 L 4.00-5.50 MIL/uL Hemoglobin 8.3 L 12.0-16.0 g/dL Hematocrit 26.9 L 36-48 % Mean Corpuscular Volume 100.0 H 79-99 fL Mean Corpuscular Hemoglobin 30.9 27.0-33.0 pg Mean Corpuscular Hemoglobin Concent 30.9 L 32.0-36.0 g/dL Red Cell Distribution Width 15.9 H 11.0-15.5 % Platelet Count 249 130-400 K/uL Mean Platelet Volume 10.0 7.5-10.5 fL Nucleated Red Blood Cells 0.0 0.0-0.19 % Sodium Level 144 136-145 mmol/L Potassium Level 4.5 3.5-5.1 mmol/L Chloride Level 110 101-111 mmol/L Carbon Dioxide Level 27 21-32 mmol/L Blood Urea Nitrogen 30 H 7-18 mg/dL Creatinine 1.6 H 0.5-1.0 mg/dL Glomerular Filtration Rate Calc 33 >90 mL/min Random Glucose 92 70-105 mg/dL Total Calcium 9.1 8.5-10.1 mg/dL Magnesium Level 2.20 1.80-2.40 mg/dL Troponin I High Sensitivity 760 *H 4-50 ng/L Erythrocyte Sedimentation Rate 31 H 0-30 MM/HR Reticulocyte Count (auto) 3.77642 H 0.42-2.23 % Immature Reticulocyte Fraction 28.90 H 0.18-0.48 % Iron Level 32 L 50-170 mcg/dL Total Iron Binding Capacity 376 250-450 mcg/dL Percent Iron Saturation 8.5 L 22-44 % Ferritin 22 15-150 ng/mL Total Creatine Kinase 31 21-232 U/L Vitamin B12 Level 549 193-986 pg/mL Folic Acid (LAB) 10.90 2-20 ng/mL Stool Occult Blood POSITIVE H NEGATIVE Urine Color LIGHT-YELLOW YELLOW Urine Appearance CLEAR CLEAR Urine pH 5.5 5.0-8.0 Urine Specific [place] 1.021 1.001-1.031 Urine Protein 20 H NEGATIVE mg/dL Urine Glucose (UA) NEGATIVE NEGATIVE mg/dL Urine Ketones NEGATIVE NEGATIVE mg/dL Urine Occult Blood NEGATIVE NEGATIVE Urine Nitrate NEGATIVE NEGATIVE Urine Bilirubin NEGATIVE NEGATIVE mg/dL Urine Urobilinogen 0.2 0.2-1.0 mg/dL Urine Leukocyte Esterase NEGATIVE NEGATIVE Ronny/uL Urine RBC 0-1 0-1 /HPF Urine WBC 2-5 H 0-1 /HPF Urine Squamous Epithelial Cells RARE 0-2 /HPF Urine Bacteria RARE None Seen /HPF Urine Hyaline Casts 2-5 H 0-1 /LPF /LPF Test 07/16/24 12:39 Range/Units Immature Granulocyte % (Auto) 0.4 0-1 % Neutrophils (%) (Auto) 67.9 40.0-77.0 % Lymphocytes (%) (Auto) 23.1 21.0-51.0 % Monocytes (%) (Auto) 7.0 3.0-13.0 % Eosinophils (%) (Auto) 1.1 0.0-8.0 % Basophils (%) (Auto) 0.5 0.0-5.0 % Neutrophils # (Auto) 5.1 1.8-7.7 K/uL Lymphocytes # (Auto) 1.8 1.0-4.8 K/uL Monocytes # (Auto) 0.5 0.1-1.0 K/uL Eosinophils # (Auto) 0.08 0.00-0.70 K/uL Basophils # (Auto) 0.04 0.00-0.20 K/uL Absolute Immature Granulocyte (auto 0.03 0-1 K/uL Red Blood Cell Morphology See comments Prothrombin Time 11.2 9.6-11.6 SEC Prothromb Time International Ratio 1.00 0.85-1.15 Activated Partial Thromboplast Time 25.0 L 26.3-35.5 SEC Hemoglobin A1c 6.4 H 4.0-6.0 % Estimated Average Glucose (eAG) 137 H 70-126 mg/dL Total Bilirubin 0.5 0.2-1.0 mg/dL Direct Bilirubin 0.2 0.0-0.3 mg/dL Aspartate Amino Transf (AST/SGOT) 17 10-37 U/L Alanine Aminotransferase (ALT/SGPT) 13 12-78 U/L Alkaline Phosphatase 85 50-136 U/L C-Reactive Protein, Quantitative 2.40 0.5-3.0 mg/L B-Type Natriuretic Peptide 501 H 0-100 pg/mL Total Protein 6.5 6.0-8.3 g/dL Albumin 2.9 L 3.5-5.0 g/dL Procalcitonin 0.05 0.05-0.5 ng/mL Thyroid Stimulating Hormone (TSH) 1.08 # 0.36-3.74 uIU/mL Influenza Type A Antigen Negative For Type A NEGATIVE Influenza Type B Antigen Negative For Type B NEGATIVE SARS-CoV-2 Antigen (Rapid) PRESUMPTIVE NEGATIVE NEGATIVE Current Medications Medications (Trade) Dose Ordered Sig/Fracisco Route PRN Reason Start Time Stop Time Status Last Admin Dose Admin Acetaminophen (TYLenol 500MG TAB) 500 mg Q6H PRN PO MILD PAIN (1-3) 07/16/24 16:30 08/15/24 16:29 07/17/24 01:09 500 MG Aspirin (Aspirin 325mg Tab) 325 mg ONCE PO 07/16/24 14:30 07/16/24 21:30 DC 07/16/24 14:36 325 MG Atorvastatin Calcium (LIPItor 40MG) 40 mg HS PO 07/16/24 21:00 08/15/24 20:59 07/16/24 21:25 40 MG Budesonide (Pulmicort 0.5 Mg/2ml) 0.5 mg BIDRESP IH 07/16/24 18:00 08/15/24 17:59 07/17/24 06:51 0.5 MG EZETIMIBE (Zetia) 10 mg DAILY PO 07/17/24 09:00 08/16/24 08:59 07/17/24 09:37 10 MG Furosemide (LASix 20MG VIAL) 20 mg ONCE IV 07/16/24 14:30 07/16/24 16:03 DC 07/16/24 14:36 20 MG Furosemide (LASix 20MG VIAL) 20 mg Q8H IV 07/16/24 18:00 07/16/24 17:30 DC Furosemide (LASix 20MG VIAL) 20 mg Q8H IV 07/16/24 19:00 08/15/24 18:59 07/17/24 10:21 20 MG Home Med (Home Medication) (Fluticasone/ Vilanterol (B... DAILY IH 07/17/24 09:00 08/16/24 08:59 07/17/24 09:38 1 EACH Insulin Human Regular (humuLIN R 100 UNIT/ML 3ML) INSULIN SLIDING SCAL... ACHS SQ 07/16/24 16:30 08/15/24 16:29 Iron Sucrose 300 mg/Sodium Chloride 250 ml @ 83 mls/hr DAILY IV 07/17/24 09:00 07/19/24 08:59 07/17/24 09:52 83 MLS/HR Magnesium Sulfate 50 ml @ 0 mls/hr PROTOCOL IV 07/16/24 17:30 08/15/24 17:29 Metoprolol Tartrate (loprESSOR) 12.5 mg BID PO 07/16/24 21:00 08/15/24 20:59 07/17/24 09:37 12.5 MG Nitroglycerin (Nitroglycerin 1gm Oint) 1 inch Q8H PRN TD CHEST PAIN 07/17/24 10:00 08/16/24 09:59 Ondansetron HCl (zoFRAN 4MG INJ) 4 mg Q6H PRN IVP NAUSEA/VOMITING 07/16/24 16:30 08/15/24 16:29 Pantoprazole Sodium 80 mg/ Sodium Chloride 100 ml @ 10 mls/hr Q10H IVP 07/16/24 16:00 08/15/24 15:59 07/17/24 12:22 10 MLS/HR Potassium Chloride 100 ml @ 100 mls/hr AD PRN IV POTASSIUM PROTOCOL 07/16/24 17:30 08/15/24 17:29 Potassium Chloride (K-Dur/Klor-Con 20meq) 20 meq AD PRN PO POTASSIUM PROTOCOL 07/16/24 17:30 08/15/24 17:29 Potassium Chloride (KCl 10% Elixir 20meq/15ml) 20 meq AD PRN PO POTASSIUM PROTOCOL 07/16/24 17:30 08/15/24 17:29 Sacubitril/ Valsartan (Entresto 24 Mg-26 Mg Tablet) 1 each BID PO 07/16/24 21:00 08/15/24 20:59 07/17/24 09:37 1 EACH Vitamin B Complex (Vitamin B-12) 1,000 mcg DAILY PO 07/17/24 09:00 08/16/24 08:59 07/17/24 09:37 1,000 MCG Diagnostics / Radiology: [COPY/PASTE HERE IF NO REPORTS PLEASE DELETE SECTION] Assessment: Positive FOBT CHF exacerbation Elevated troponin Plan: Hold of on EGD given elevated troponin and CHF exacerbation Will monitor closely VANI RODRIGUEZ BRICKMASON APPRENTICE Jul 17, 2024 15:15
--- NOTE | 2024-07-17 15:27 | NUR ---
2 attempts at PT eval prior 1300 and 1500, patient wishing to visit with extended family at bedside. PT to follow
[2024-07-18] VITALS (14 sets, daily range): BP systolic 96–129; BP diastolic 45–73; PULSE 54–91; RESP 16–18; TEMP 97.9–98.5; O2SAT 93–99
--- NOTE | 2024-07-18 08:49 | PN ---
[facility] PROGRESS NOTE Date of Service: Jul 17, 2024 Time of Service: 08:45 SUBJECTIVE: 07/17 this is a late dictation, patient seen at bedside, no acute events overnight. She has been started on diuresis. GI was consulted however defers to do endoscopy at this time until patient more stable from a CHF perspective. REVIEW OF SYSTEMS 12 point review of systems negative unless noted in HPI PHYSICAL EXAM GENERAL APPEARANCE: The patient is awake, alert, and oriented, in no acute cardiopulmonary distress. NEUROLOGICAL: Cranial nerves II-XII grossly intact. Motor is 5/5 in bilateral upper and lower extremities proximal to distal. No sensory deficits. HEENT: Face is symmetric. Pupils are equal and reactive. Extraocular movements are intact. NECK: Supple. No JVD. No thyromegaly. No submental, submandibular, pre- /postauricular, occipital or supraclavicular lymphadenopathy. CHEST: Normal chest expansion. No Telemetry. LUNGS: Crackles noted bilateral lung bases with rhonchorous breath sounds CARDIOVASCULAR: Regular. S1 and S2 normal. No appreciable rubs, murmurs or gallops. ABDOMEN: Soft, nontender, and nondistended. There is no rebound, voluntary guarding, or rigidity. : Deferred. No Ma. EXTREMITIES: 2+ pitting edema bilateral lower extremity SKIN: No skin breakdown. Vital Signs (last 8hr) Date Time Temp Pulse Resp B/P (MAP) Pulse Ox O2 Delivery O2 Flow Rate FiO2 07/18/24 07:00 97.9 54 18 129/49 96 Room Air 07/18/24 06:39 67 18 N/A Room Air 21 07/18/24 06:37 67 18 07/18/24 04:28 98.4 91 18 97/48 93 Room Air LABS: Laboratory: Test 07/17/24 04:03 07/16/24 20:11 07/16/24 14:54 07/16/24 14:45 Range/Units White Blood Count 7.4 4.8-10.8 K/uL Red Blood Count 2.69 L 4.00-5.50 MIL/uL Hemoglobin 8.3 L 12.0-16.0 g/dL Hematocrit 26.9 L 36-48 % Mean Corpuscular Volume 100.0 H 79-99 fL Mean Corpuscular Hemoglobin 30.9 27.0-33.0 pg Mean Corpuscular Hemoglobin Concent 30.9 L 32.0-36.0 g/dL Red Cell Distribution Width 15.9 H 11.0-15.5 % Platelet Count 249 130-400 K/uL Mean Platelet Volume 10.0 7.5-10.5 fL Nucleated Red Blood Cells 0.0 0.0-0.19 % Sodium Level 144 136-145 mmol/L Potassium Level 4.5 3.5-5.1 mmol/L Chloride Level 110 101-111 mmol/L Carbon Dioxide Level 27 21-32 mmol/L Blood Urea Nitrogen 30 H 7-18 mg/dL Creatinine 1.6 H 0.5-1.0 mg/dL Glomerular Filtration Rate Calc 33 >90 mL/min Random Glucose 92 70-105 mg/dL Total Calcium 9.1 8.5-10.1 mg/dL Magnesium Level 2.20 1.80-2.40 mg/dL Troponin I High Sensitivity 760 *H 4-50 ng/L Erythrocyte Sedimentation Rate 31 H 0-30 MM/HR Reticulocyte Count (auto) 3.09168 H 0.42-2.23 % Immature Reticulocyte Fraction 28.90 H 0.18-0.48 % Iron Level 32 L 50-170 mcg/dL Total Iron Binding Capacity 376 250-450 mcg/dL Percent Iron Saturation 8.5 L 22-44 % Ferritin 22 15-150 ng/mL Total Creatine Kinase 31 21-232 U/L Vitamin B12 Level 549 193-986 pg/mL Folic Acid (LAB) 10.90 2-20 ng/mL Stool Occult Blood POSITIVE H NEGATIVE Urine Color LIGHT-YELLOW YELLOW Urine Appearance CLEAR CLEAR Urine pH 5.5 5.0-8.0 Urine Specific [place] 1.021 1.001-1.031 Urine Protein 20 H NEGATIVE mg/dL Urine Glucose (UA) NEGATIVE NEGATIVE mg/dL Urine Ketones NEGATIVE NEGATIVE mg/dL Urine Occult Blood NEGATIVE NEGATIVE Urine Nitrate NEGATIVE NEGATIVE Urine Bilirubin NEGATIVE NEGATIVE mg/dL Urine Urobilinogen 0.2 0.2-1.0 mg/dL Urine Leukocyte Esterase NEGATIVE NEGATIVE Ronny/uL Urine RBC 0-1 0-1 /HPF Urine WBC 2-5 H 0-1 /HPF Urine Squamous Epithelial Cells RARE 0-2 /HPF Urine Bacteria RARE None Seen /HPF Urine Hyaline Casts 2-5 H 0-1 /LPF /LPF Test 07/16/24 12:39 Range/Units Immature Granulocyte % (Auto) 0.4 0-1 % Neutrophils (%) (Auto) 67.9 40.0-77.0 % Lymphocytes (%) (Auto) 23.1 21.0-51.0 % Monocytes (%) (Auto) 7.0 3.0-13.0 % Eosinophils (%) (Auto) 1.1 0.0-8.0 % Basophils (%) (Auto) 0.5 0.0-5.0 % Neutrophils # (Auto) 5.1 1.8-7.7 K/uL Lymphocytes # (Auto) 1.8 1.0-4.8 K/uL Monocytes # (Auto) 0.5 0.1-1.0 K/uL Eosinophils # (Auto) 0.08 0.00-0.70 K/uL Basophils # (Auto) 0.04 0.00-0.20 K/uL Absolute Immature Granulocyte (auto 0.03 0-1 K/uL Red Blood Cell Morphology See comments Prothrombin Time 11.2 9.6-11.6 SEC Prothromb Time International Ratio 1.00 0.85-1.15 Activated Partial Thromboplast Time 25.0 L 26.3-35.5 SEC Hemoglobin A1c 6.4 H 4.0-6.0 % Estimated Average Glucose (eAG) 137 H 70-126 mg/dL Total Bilirubin 0.5 0.2-1.0 mg/dL Direct Bilirubin 0.2 0.0-0.3 mg/dL Aspartate Amino Transf (AST/SGOT) 17 10-37 U/L Alanine Aminotransferase (ALT/SGPT) 13 12-78 U/L Alkaline Phosphatase 85 50-136 U/L C-Reactive Protein, Quantitative 2.40 0.5-3.0 mg/L B-Type Natriuretic Peptide 501 H 0-100 pg/mL Total Protein 6.5 6.0-8.3 g/dL Albumin 2.9 L 3.5-5.0 g/dL Procalcitonin 0.05 0.05-0.5 ng/mL Thyroid Stimulating Hormone (TSH) 1.08 # 0.36-3.74 uIU/mL Influenza Type A Antigen Negative For Type A NEGATIVE Influenza Type B Antigen Negative For Type B NEGATIVE SARS-CoV-2 Antigen (Rapid) PRESUMPTIVE NEGATIVE NEGATIVE Current Medications Medications (Trade) Dose Ordered Sig/Fracisco Route PRN Reason Start Time Stop Time Status Last Admin Dose Admin Acetaminophen (TYLenol 500MG TAB) 500 mg Q6H PRN PO MILD PAIN (1-3) 07/16/24 16:30 08/15/24 16:29 07/17/24 01:09 500 MG Aspirin (Aspirin 325mg Tab) 325 mg ONCE PO 07/16/24 14:30 07/16/24 21:30 DC 07/16/24 14:36 325 MG Atorvastatin Calcium (LIPItor 40MG) 40 mg HS PO 07/16/24 21:00 08/15/24 20:59 07/17/24 21:15 40 MG Budesonide (Pulmicort 0.5 Mg/2ml) 0.5 mg BIDRESP IH 07/16/24 18:00 08/15/24 17:59 07/18/24 06:37 0.5 MG EZETIMIBE (Zetia) 10 mg DAILY PO 07/17/24 09:00 08/16/24 08:59 07/17/24 09:37 10 MG Furosemide (LASix 20MG VIAL) 20 mg ONCE IV 07/16/24 14:30 07/16/24 16:03 DC 07/16/24 14:36 20 MG Furosemide (LASix 20MG VIAL) 20 mg Q8H IV 07/16/24 18:00 07/16/24 17:30 DC Furosemide (LASix 20MG VIAL) 20 mg Q8H IV 07/16/24 19:00 07/17/24 23:32 DC 07/17/24 18:34 20 MG Home Med (Home Medication) (Fluticasone/ Vilanterol (B... DAILY IH 07/17/24 09:00 08/16/24 08:59 07/17/24 09:38 1 EACH Insulin Human Regular (humuLIN R 100 UNIT/ML 3ML) INSULIN SLIDING SCAL... ACHS SQ 07/16/24 16:30 08/15/24 16:29 Iron Sucrose 300 mg/Sodium Chloride 250 ml @ 83 mls/hr DAILY IV 07/17/24 09:00 07/19/24 08:59 07/17/24 09:52 83 MLS/HR Magnesium Sulfate 50 ml @ 0 mls/hr PROTOCOL IV 07/16/24 17:30 08/15/24 17:29 Metoprolol Tartrate (loprESSOR) 12.5 mg BID PO 07/16/24 21:00 08/15/24 20:59 07/17/24 21:15 12.5 MG Nitroglycerin (Nitroglycerin 1gm Oint) 1 inch Q8H PRN TD CHEST PAIN 07/17/24 10:00 08/16/24 09:59 Ondansetron HCl (zoFRAN 4MG INJ) 4 mg Q6H PRN IVP NAUSEA/VOMITING 07/16/24 16:30 08/15/24 16:29 Pantoprazole Sodium 80 mg/ Sodium Chloride 100 ml @ 10 mls/hr Q10H IVP 07/16/24 16:00 08/15/24 15:59 07/17/24 23:37 10 MLS/HR Potassium Chloride 100 ml @ 100 mls/hr AD PRN IV POTASSIUM PROTOCOL 07/16/24 17:30 08/15/24 17:29 Potassium Chloride (K-Dur/Klor-Con 20meq) 20 meq AD PRN PO POTASSIUM PROTOCOL 07/16/24 17:30 08/15/24 17:29 Potassium Chloride (KCl 10% Elixir 20meq/15ml) 20 meq AD PRN PO POTASSIUM PROTOCOL 07/16/24 17:30 08/15/24 17:29 Sacubitril/ Valsartan (Entresto 24 Mg-26 Mg Tablet) 1 each BID PO 07/16/24 21:00 08/15/24 20:59 07/17/24 21:14 1 EACH Vitamin B Complex (Vitamin B-12) 1,000 mcg DAILY PO 07/17/24 09:00 08/16/24 08:59 07/17/24 09:37 1,000 MCG DIAGNOSTICS / RADIOLOGY: [ ] ASSESSMENT: Acute on chronic systolic and diastolic heart failure exacerbation, POA History of advanced ischemic cardiomyopathy with LVEF of about 30%, 06/12, POA NSTEMI, POA Acute hypoxemic respiratory failure with cardiogenic pulmonary edema, POA Progressive anemia with concerns for GI bleeding, POA History of recent anticoagulation with Eliquis as outpatient, POA Rule out outpatient atrial fibrillation, POA History of multivessel coronary artery disease with prior history of ID in 2008 History of coronary artery bypass vessel grafting times three-vessel in 2008, POA History of documented inoperable coronary artery disease by cardiac catheterization in 09/2012, POA Underlying history of hypertension, POA Hyperlipidemia, POA Obesity, POA Underlying history of ICD placement, POA PLAN: Continue PCCU Continue IV diuretics with IV Lasix 20 mg q.8 hours Monitor urine output closely Hold anticoagulation moving forward Cardiology consulted, appreciate recommendations Transfuse to maintain hemoglobin greater than 7-8 due to active ACS H&H will be monitored q.6 hours tonight, and all labs will be repeated in the morning, maintain K greater than four and magnesium greater than two GI consulted, appreciate recommendations DVT prophylaxis with SCDs and GI prophylaxis with Protonix Echo showing EF 30-35% with no major valvular abnormalities Disposition: Pending improvement in volume overload, and GI recommendations, possible endoscopy SEBLE JACKSON MD Jul 18, 2024 08:49
[2024-07-18 09:08] LABS: BASOPHILS # (AUTO) 0.03 K/uL (0.00-0.20); BASOPHILS % (AUTO) 0.4 % (0.0-5.0); EOSINOPHILS # (AUTO) 0.09 K/uL (0.00-0.70); EOSINOPHILS % (AUTO) 1.1 % (0.0-8.0); HEMATOCRIT 30.5 % (36-48); IMMATURE GRANULOCYTE ABSOLUTE 0.03 K/uL (0-1); LYMPHOCYTES # (AUTO) 1.2 K/uL (1.0-4.8); LYMPHOCYTES % (AUTO) 14.7 % (21.0-51.0); MEAN CORPUSCULAR HEMOGLOBIN 30.6 pg (27.0-33.0); MEAN CORPUSCULAR HGB CONC 30.8 g/dL (32.0-36.0); MEAN CORPUSCULAR VOLUME 99.3 fL (79-99); MONOCYTES # (AUTO) 0.3 K/uL (0.1-1.0); MONOCYTES % (AUTO) 4.3 % (3.0-13.0); NEUTROPHILS # (AUTO) 6.2 K/uL (1.8-7.7); NEUTROPHILS % (AUTO) 79.1 % (40.0-77.0); NUCLEATED RED BLOOD CELLS 0.3 % (0.0-0.19); PLATELET COUNT (AUTO) 295 K/uL (130-400); RED BLOOD CELL COUNT(AUTO) 3.07 MIL/uL (4.00-5.50); RED CELL DISTRIBUTION WIDTH 15.9 % (11.0-15.5); WHITE BLOOD COUNT (AUTO) 7.9 K/uL (4.8-10.8)
[2024-07-18 09:31] LABS: ALBUMIN 2.7 g/dL (3.5-5.0); BILIRUBIN,TOTAL 1.1 mg/dL (0.2-1.0); CREATININE 1.6 mg/dL (0.5-1.0); MAGNESIUM 1.9 mg/dL (1.80-2.40); POTASSIUM 3.3 mmol/L (3.5-5.1); TOTAL PROTEIN, SERUM 6.2 g/dL (6.0-8.3)
[2024-07-18] MEDS: PoTASSium chl 10% ELIXIR 20MEQ 20 MEQ/15 ML UDCUP PO PRN (10:43)
--- NOTE | 2024-07-18 11:57 | PN ---
PROGRESS NOTE PROBLEM LIST: NSTEMI likely type II due to anemia and acute CHF exacerbation Acute on chronic combined systolic and diastolic heart failure Anemia Hypertension Diabetes mellitus type 2 Remote myocardial infarction in 2008 Paroxysmal atrial fibrillation on chronic anticoagulation with Eliquis started on 06/23/2024 CAD status post CABG x3 in 2008 with documented inoperable CAD September 2012 2D echo on 05/29/2022 with an EF of 30%, stage III diastolic dysfunction, [id number] MR, and severe global hypokinesis Ischemic cardiomyopathy with an EF less than 35% ICD placement with a [place] scientific device November 2012 with generator replacement 05/16/2017 Possible atrial lead malfunction Carotid artery disease with 50-70% right internal carotid artery stenosis and greater than 70% left internal carotid artery stenosis by Doppler February 2021 CKD COPD INTERIM HISTORY OF PRESENT ILLNESS: Patient states she feels much improved after IV diuresis. Patient has been evaluated by Gastroenterology and possible plans for EGD we will take place on Saturday or Saturday of this week. She currently denies any chest pain pressure tightness. Patient has known underlying coronary artery disease deemed inoperable October 08, 2012 so elevated cardiac enzymes likely related to demand ischemia and patient is currently asymptomatic from anginal symptoms. REVIEW OF SYSTEMS: No fever, headache, chest pain, abdominal pain, nausea, vomiting, or diarrhea. VITAL SIGNS Vital Signs Date Time Temp Pulse Resp B/P (MAP) Pulse Ox O2 Delivery O2 Flow Rate FiO2 07/18/24 08:00 96 Room Air* 0 21 07/18/24 07:00 97.9 54 18 129/49 Laboratory Tests 07/18/24 08:47 LABS/MEDS Laboratory Tests Test 07/18/24 08:47 White Blood Count 7.9 K/uL (4.8-10.8) Red Blood Count 3.07 MIL/uL (4.00-5.50) L Hemoglobin 9.4 g/dL (12.0-16.0) L Hematocrit 30.5 % (36-48) L Mean Corpuscular Volume 99.3 fL (79-99) H Mean Corpuscular Hemoglobin 30.6 pg (27.0-33.0) Mean Corpuscular Hemoglobin Concent 30.8 g/dL (32.0-36.0) L Red Cell Distribution Width 15.9 % (11.0-15.5) H Platelet Count 295 K/uL (130-400) Mean Platelet Volume 10.0 fL (7.5-10.5) Immature Granulocyte % (Auto) 0.4 % (0-1) Neutrophils (%) (Auto) 79.1 % (40.0-77.0) H Lymphocytes (%) (Auto) 14.7 % (21.0-51.0) L Monocytes (%) (Auto) 4.3 % (3.0-13.0) Eosinophils (%) (Auto) 1.1 % (0.0-8.0) Basophils (%) (Auto) 0.4 % (0.0-5.0) Neutrophils # (Auto) 6.2 K/uL (1.8-7.7) Lymphocytes # (Auto) 1.2 K/uL (1.0-4.8) Monocytes # (Auto) 0.3 K/uL (0.1-1.0) Eosinophils # (Auto) 0.09 K/uL (0.00-0.70) Basophils # (Auto) 0.03 K/uL (0.00-0.20) Absolute Immature Granulocyte (auto 0.03 K/uL (0-1) Nucleated Red Blood Cells 0.3 % (0.0-0.19) H Sodium Level 145 mmol/L (136-145) Potassium Level 3.3 mmol/L (3.5-5.1) L Chloride Level 107 mmol/L (101-111) Carbon Dioxide Level 31 mmol/L (21-32) Blood Urea Nitrogen 26 mg/dL (7-18) H Creatinine 1.6 mg/dL (0.5-1.0) H Glomerular Filtration Rate Calc 33 mL/min (>90) Random Glucose 145 mg/dL (70-105) H Total Calcium 8.7 mg/dL (8.5-10.1) Magnesium Level 1.90 mg/dL (1.80-2.40) Total Bilirubin 1.1 mg/dL (0.2-1.0) H Aspartate Amino Transf (AST/SGOT) 19 U/L (10-37) Alanine Aminotransferase (ALT/SGPT) 10 U/L (12-78) L Alkaline Phosphatase 87 U/L (50-136) Total Protein 6.2 g/dL (6.0-8.3) Albumin 2.7 g/dL (3.5-5.0) L Current Medications Nitroglycerin 1 inch ONCE ONCE TD Last administered on 07/16/24at 12:56; Start 07/16/24 at 12:30; Stop 07/16/24 at 12:31; Status DC Aspirin 325 mg ONCE ONCE PO; Start 07/16/24 at 12:30; Stop 07/16/24 at 12:40; Status DC Aspirin 325 mg ONCE PO Last administered on 07/16/24at 14:36; Start 07/16/24 at 14:30; Stop 07/16/24 at 21:30; Status DC Furosemide 20 mg ONCE IV Last administered on 07/16/24at 14:36; Start 07/16/24 at 14:30; Stop 07/16/24 at 16:03; Status DC Pantoprazole Sodium 40 mg ONCE ONCE IVP Last administered on 07/16/24at 16:10; Start 07/16/24 at 15:30; Stop 07/16/24 at 15:31; Status DC Furosemide 20 mg Q8H IV; Start 07/16/24 at 18:00; Stop 07/16/24 at 17:30; Status DC Insulin Human Regular INSULIN SLIDING SCAL... ACHS SQ; Start 07/16/24 at 16:30; Stop 08/15/24 at 16:29 Pantoprazole Sodium 80 mg/ Sodium Chloride 100 ml @ 10 mls/hr Q10H IVP Last administered on 07/18/24at 08:56; Start 07/16/24 at 16:00; Stop 08/15/24 at 15:59 Ondansetron HCl 4 mg Q6H PRN IVP; Start 07/16/24 at 16:30; Stop 08/15/24 at 16:29 Acetaminophen 500 mg Q6H PRN PO Last administered on 07/17/24at 01:09; Start 07/16/24 at 16:30; Stop 08/15/24 at 16:29 Budesonide 0.5 mg BIDRESP IH Last administered on 07/18/24at 06:37; Start 07/16/24 at 18:00; Stop 08/15/24 at 17:59 Furosemide 20 mg Q8H IV Last administered on 07/17/24at 18:34; Start 07/16/24 at 19:00; Stop 07/17/24 at 23:32; Status DC Potassium Chloride 100 ml @ 100 mls/hr AD PRN IV; Start 07/16/24 at 17:30; Stop 08/15/24 at 17:29 Potassium Chloride 20 meq AD PRN PO Last administered on 07/18/24at 10:43; Start 07/16/24 at 17:30; Stop 08/15/24 at 17:29 Potassium Chloride 20 meq AD PRN PO; Start 07/16/24 at 17:30; Stop 08/15/24 at 17:29 Magnesium Sulfate 50 ml @ 0 mls/hr PROTOCOL IV; Start 07/16/24 at 17:30; Stop 08/15/24 at 17:29 Vitamin B Complex 1,000 mcg DAILY PO Last administered on 07/18/24at 08:55; Start 07/17/24 at 09:00; Stop 08/16/24 at 08:59 EZETIMIBE 10 mg DAILY PO Last administered on 07/18/24at 08:56; Start 07/17/24 at 09:00; Stop 08/16/24 at 08:59 Metoprolol Tartrate 12.5 mg BID PO Last administered on 07/18/24at 08:56; Start 07/16/24 at 21:00; Stop 08/15/24 at 20:59 Sacubitril/ Valsartan 1 each BID PO Last administered on 07/18/24at 08:55; Start 07/16/24 at 21:00; Stop 08/15/24 at 20:59 Home Med (Fluticasone/ Vilanterol (B... DAILY IH Last administered on 07/18/24at 08:56; Start 07/17/24 at 09:00; Stop 08/16/24 at 08:59 Atorvastatin Calcium 40 mg HS PO Last administered on 07/17/24at 21:15; Start 07/16/24 at 21:00; Stop 08/15/24 at 20:59 Iron Sucrose 300 mg/Sodium Chloride 250 ml @ 83 mls/hr DAILY IV Last administered on 07/18/24at 08:55; Start 07/17/24 at 09:00; Stop 07/19/24 at 08:59 Nitroglycerin 1 inch Q8H PRN TD; Start 07/17/24 at 10:00; Stop 08/16/24 at 09:59 Furosemide 40 mg BID@09,17 PO; Start 07/18/24 at 17:00; Stop 08/17/24 at 16:59 PHYSICAL EXAMINATION: GENERAL: No acute distress. HEENT: Normocephalic, atraumatic. CARDIAC: Positive S1 and S2. No murmurs. LUNGS: Clear to auscultation bilaterally. ABDOMEN: Bowel sounds present, soft, nontender. EXTREMITIES: No edema bilaterally. NEUROLOGIC: Cranial nerves 2-12 grossly intact. PSYCHIATRIC: Calm. ASSESSMENT: Atrial fibrillation Anemia after initiation of Eliquis Acute on chronic combined congestive heart failure level of severity 3 present on admission resolving Chronic kidney disease level of severity IV Coronary artery disease deemed inoperable via coronary angiography 2012 Ischemic cardiomyopathy with an ejection fraction at 35% with prior AICD placement PLAN: At this time we will initiate oral Lasix at 40 mg twice daily which was patient's home dose prior to readjustment that took place earlier in the month From our standpoint patient is and will be stable for any GI workup that needs to be done on this admission We will continue with proton pump inhibitor We will continue with other home medications We will continue to follow closely JESSE RANGEL MD Jul 18, 2024 11:56
[2024-07-18] MEDS: ISOSORBIDE MONO 30MG SR TAB PO SCH (13:24)
--- NOTE | 2024-07-18 16:31 | PN ---
[facility] PROGRESS NOTE Date of Service: Jul 18, 2024 Time of Service: : SUBJECTIVE: 07/17 this is a late dictation, patient seen at bedside, no acute events overnight. She has been started on diuresis. GI was consulted however defers to do endoscopy at this time until patient more stable from a CHF perspective. 07/18 patient seen at bedside, no acute events overnight. Creatinine stable at 1.6, same as yesterday potassium decreased from 4.5 down to 2.3, we will be repleted according to protocol. She reports she is feeling better after some diuresis. GI is finally take her for EGD on Saturday or Saturday. Echocardiogram showing decreased EF at 30-35% with mild mitral valve regurgitation and trace aortic valve regurgitation REVIEW OF SYSTEMS 12 point review of systems negative unless noted in HPI PHYSICAL EXAM GENERAL APPEARANCE: The patient is awake, alert, and oriented, in no acute cardiopulmonary distress. NEUROLOGICAL: Cranial nerves II-XII grossly intact. Motor is 5/5 in bilateral upper and lower extremities proximal to distal. No sensory deficits. HEENT: Face is symmetric. Pupils are equal and reactive. Extraocular movements are intact. NECK: Supple. No JVD. No thyromegaly. No submental, submandibular, pre- /postauricular, occipital or supraclavicular lymphadenopathy. CHEST: Normal chest expansion. No Telemetry. LUNGS: Crackles noted bilateral lung bases with rhonchorous breath sounds CARDIOVASCULAR: Regular. S1 and S2 normal. No appreciable rubs, murmurs or gallops. ABDOMEN: Soft, nontender, and nondistended. There is no rebound, voluntary guarding, or rigidity. : Deferred. No Ma. EXTREMITIES: 2+ pitting edema bilateral lower extremity SKIN: No skin breakdown. Vital Signs (last 8hr) Date Time Temp Pulse Resp B/P (MAP) Pulse Ox O2 Delivery O2 Flow Rate FiO2 07/18/24 13:24 117/46 07/18/24 11:00 98.1 69 16 113/55 93 Room Air LABS: Laboratory: Test 07/18/24 08:47 07/17/24 04:03 07/16/24 20:11 Range/Units White Blood Count 7.9 4.8-10.8 K/uL Red Blood Count 3.07 L 4.00-5.50 MIL/uL Hemoglobin 9.4 L 12.0-16.0 g/dL Hematocrit 30.5 L 36-48 % Mean Corpuscular Volume 99.3 H 79-99 fL Mean Corpuscular Hemoglobin 30.6 27.0-33.0 pg Mean Corpuscular Hemoglobin Concent 30.8 L 32.0-36.0 g/dL Red Cell Distribution Width 15.9 H 11.0-15.5 % Platelet Count 295 130-400 K/uL Mean Platelet Volume 10.0 7.5-10.5 fL Immature Granulocyte % (Auto) 0.4 0-1 % Neutrophils (%) (Auto) 79.1 H 40.0-77.0 % Lymphocytes (%) (Auto) 14.7 L 21.0-51.0 % Monocytes (%) (Auto) 4.3 3.0-13.0 % Eosinophils (%) (Auto) 1.1 0.0-8.0 % Basophils (%) (Auto) 0.4 0.0-5.0 % Neutrophils # (Auto) 6.2 1.8-7.7 K/uL Lymphocytes # (Auto) 1.2 1.0-4.8 K/uL Monocytes # (Auto) 0.3 0.1-1.0 K/uL Eosinophils # (Auto) 0.09 0.00-0.70 K/uL Basophils # (Auto) 0.03 0.00-0.20 K/uL Absolute Immature Granulocyte (auto 0.03 0-1 K/uL Nucleated Red Blood Cells 0.3 H 0.0-0.19 % Sodium Level 145 136-145 mmol/L Potassium Level 3.3 L 3.5-5.1 mmol/L Chloride Level 107 101-111 mmol/L Carbon Dioxide Level 31 21-32 mmol/L Blood Urea Nitrogen 26 H 7-18 mg/dL Creatinine 1.6 H 0.5-1.0 mg/dL Glomerular Filtration Rate Calc 33 >90 mL/min Random Glucose 145 H 70-105 mg/dL Total Calcium 8.7 8.5-10.1 mg/dL Magnesium Level 1.90 1.80-2.40 mg/dL Total Bilirubin 1.1 H 0.2-1.0 mg/dL Aspartate Amino Transf (AST/SGOT) 19 10-37 U/L Alanine Aminotransferase (ALT/SGPT) 10 L 12-78 U/L Alkaline Phosphatase 87 50-136 U/L Total Protein 6.2 6.0-8.3 g/dL Albumin 2.7 L 3.5-5.0 g/dL Troponin I High Sensitivity 760 *H 4-50 ng/L Erythrocyte Sedimentation Rate 31 H 0-30 MM/HR Reticulocyte Count (auto) 3.22594 H 0.42-2.23 % Immature Reticulocyte Fraction 28.90 H 0.18-0.48 % Iron Level 32 L 50-170 mcg/dL Total Iron Binding Capacity 376 250-450 mcg/dL Percent Iron Saturation 8.5 L 22-44 % Ferritin 22 15-150 ng/mL Total Creatine Kinase 31 21-232 U/L Vitamin B12 Level 549 193-986 pg/mL Folic Acid (LAB) 10.90 2-20 ng/mL Current Medications Medications (Trade) Dose Ordered Sig/Fracisco Route PRN Reason Start Time Stop Time Status Last Admin Dose Admin Acetaminophen (TYLenol 500MG TAB) 500 mg Q6H PRN PO MILD PAIN (1-3) 07/16/24 16:30 08/15/24 16:29 07/18/24 13:23 500 MG Aspirin (Aspirin 325mg Tab) 325 mg ONCE PO 07/16/24 14:30 07/16/24 21:30 DC 07/16/24 14:36 325 MG Atorvastatin Calcium (LIPItor 40MG) 40 mg HS PO 07/16/24 21:00 08/15/24 20:59 07/17/24 21:15 40 MG Budesonide (Pulmicort 0.5 Mg/2ml) 0.5 mg BIDRESP IH 07/16/24 18:00 08/15/24 17:59 07/18/24 06:37 0.5 MG EZETIMIBE (Zetia) 10 mg DAILY PO 07/17/24 09:00 08/16/24 08:59 07/18/24 08:56 10 MG Furosemide (LASix 20MG VIAL) 20 mg ONCE IV 07/16/24 14:30 07/16/24 16:03 DC 07/16/24 14:36 20 MG Furosemide (LASix 20MG VIAL) 20 mg Q8H IV 07/16/24 18:00 07/16/24 17:30 DC Furosemide (LASix 20MG VIAL) 20 mg Q8H IV 07/16/24 19:00 07/17/24 23:32 DC 07/17/24 18:34 20 MG Furosemide (LASix 40MG TAB) 40 mg BID@09,17 PO 07/18/24 17:00 08/17/24 16:59 Home Med (Home Medication) (Fluticasone/ Vilanterol (B... DAILY IH 07/17/24 09:00 08/16/24 08:59 07/18/24 08:56 1 EACH Insulin Human Regular (humuLIN R 100 UNIT/ML 3ML) INSULIN SLIDING SCAL... ACHS SQ 07/16/24 16:30 08/15/24 16:29 Iron Sucrose 300 mg/Sodium Chloride 250 ml @ 83 mls/hr DAILY IV 07/17/24 09:00 07/19/24 08:59 07/18/24 08:55 83 MLS/HR Isosorbide Mononitrate (Imdur 30mg Sr) 30 mg DAILY PO 07/18/24 12:00 08/17/24 11:59 07/18/24 13:24 30 MG Magnesium Sulfate 50 ml @ 0 mls/hr PROTOCOL IV 07/16/24 17:30 08/15/24 17:29 Metoprolol Tartrate (loprESSOR) 12.5 mg BID PO 07/16/24 21:00 08/15/24 20:59 07/18/24 08:56 12.5 MG Nitroglycerin (Nitroglycerin 1gm Oint) 1 inch Q8H PRN TD CHEST PAIN 07/17/24 10:00 07/18/24 11:58 DC Ondansetron HCl (zoFRAN 4MG INJ) 4 mg Q6H PRN IVP NAUSEA/VOMITING 07/16/24 16:30 08/15/24 16:29 Pantoprazole Sodium 80 mg/ Sodium Chloride 100 ml @ 10 mls/hr Q10H IVP 07/16/24 16:00 08/15/24 15:59 07/18/24 08:56 10 MLS/HR Potassium Chloride 100 ml @ 100 mls/hr AD PRN IV POTASSIUM PROTOCOL 07/16/24 17:30 08/15/24 17:29 Potassium Chloride (K-Dur/Klor-Con 20meq) 20 meq AD PRN PO POTASSIUM PROTOCOL 07/16/24 17:30 08/15/24 17:29 Potassium Chloride (KCl 10% Elixir 20meq/15ml) 20 meq AD PRN PO POTASSIUM PROTOCOL 07/16/24 17:30 08/15/24 17:29 07/18/24 13:22 20 MEQ Sacubitril/ Valsartan (Entresto 24 Mg-26 Mg Tablet) 1 each BID PO 07/16/24 21:00 08/15/24 20:59 07/18/24 08:55 1 EACH Vitamin B Complex (Vitamin B-12) 1,000 mcg DAILY PO 07/17/24 09:00 08/16/24 08:59 07/18/24 08:55 1,000 MCG DIAGNOSTICS / RADIOLOGY: [ ] ASSESSMENT: Acute on chronic systolic and diastolic heart failure exacerbation, POA History of advanced ischemic cardiomyopathy with LVEF of about 35-40%, 06/12, POA NSTEMI, POA Acute hypoxemic respiratory failure with cardiogenic pulmonary edema, POA Progressive anemia with concerns for GI bleeding, POA History of recent anticoagulation with Eliquis as outpatient, POA Rule out outpatient atrial fibrillation, POA History of multivessel coronary artery disease with prior history of VA in 2008 History of coronary artery bypass vessel grafting times three-vessel in 2008, POA History of documented inoperable coronary artery disease by cardiac catheterization in 09/2012, POA Underlying history of hypertension, POA Hyperlipidemia, POA Obesity, POA Underlying history of ICD placement, POA PLAN: Continue PCCU Continue IV diuretics with IV Lasix 40mg BID Continue isosorbide 30mg q24h Monitor urine output closely Hold anticoagulation moving forward Cardiology consulted, appreciate recommendations Transfuse to maintain hemoglobin greater than 7-8 due to active ACS H&H will be monitored q.6 hours tonight, and all labs will be repeated in the morning, maintain K greater than four and magnesium greater than two GI consulted, appreciate recommendations DVT prophylaxis with SCDs and GI prophylaxis with Protonix Echo showing EF 30-35% with no major valvular abnormalities Disposition: Pending improvement in volume overload, and GI recommendations, possible endoscopy SEBLE JACKSON MD Jul 18, 2024 16:30
[2024-07-18] MEDS: furoSEMIDE 40 MG TABLET PO SCH (17:40)
--- NOTE | 2024-07-18 18:19 | NUR ---
INITIAL ASSESSMENT Patient lives with daughter, Libia Roe. She has no home health but does have [facility] 17 hours a week. DME: Cane, shower chair. Patient is able to complete ADLs independently and drives. PCP is Dr. Stephany Mckeon. Pharmacy is [facility] in [place]. Patient has no issues with having stable group home to live in or transportation. She and daughter have lived in their home for some time. No concerns voiced regarding not having enough food in the home. No safety concerns voiced regarding returning home. DCP is home. Addendum: 07/18/24 at 1823 by VINNY CARRASCO Amended: Links added.
[2024-07-19] VITALS (8 sets, daily range): BP systolic 101–127; BP diastolic 42–75; PULSE 65–105; RESP 16–20; TEMP 97.7–98.9; O2SAT 96–100
[2024-07-19] MEDS: PANTOPrazole 40MG INJ 80 MG in 0.9%NACL 100ML 100 ML IVP SCH (00:06)
[2024-07-19 03:51] LABS: BASOPHILS # (AUTO) 0.03 K/uL (0.00-0.20); BASOPHILS % (AUTO) 0.3 % (0.0-5.0); EOSINOPHILS # (AUTO) 0.07 K/uL (0.00-0.70); EOSINOPHILS % (AUTO) 0.7 % (0.0-8.0); HEMATOCRIT 28.9 % (36-48); IMMATURE GRANULOCYTE ABSOLUTE 0.05 K/uL (0-1); LYMPHOCYTES # (AUTO) 1.4 K/uL (1.0-4.8); LYMPHOCYTES % (AUTO) 13.5 % (21.0-51.0); MEAN CORPUSCULAR HEMOGLOBIN 30.1 pg (27.0-33.0); MEAN CORPUSCULAR HGB CONC 30.8 g/dL (32.0-36.0); MEAN CORPUSCULAR VOLUME 97.6 fL (79-99); MONOCYTES # (AUTO) 0.7 K/uL (0.1-1.0); MONOCYTES % (AUTO) 6.4 % (3.0-13.0); NEUTROPHILS % (AUTO) 78.6 % (40.0-77.0); NUCLEATED RED BLOOD CELLS 0.4 % (0.0-0.19); PLATELET COUNT (AUTO) 287 K/uL (130-400); RED BLOOD CELL COUNT(AUTO) 2.96 MIL/uL (4.00-5.50); WHITE BLOOD COUNT (AUTO) 10.2 K/uL (4.8-10.8)
[2024-07-19 04:05] LABS: INR 1.07 (0.85-1.15); PROTHROMBIN TIME 11.9 SEC (9.6-11.6)
[2024-07-19 04:08] LABS: CREATININE 1.6 mg/dL (0.5-1.0); MAGNESIUM 1.9 mg/dL (1.80-2.40); PHOSPHORUS 2.5 mg/dL (2.5-4.9)
[2024-07-19] MEDS: MAGNESIUM 2GM PREMIX 50ML 50 ML IV SCH (05:15)
--- NOTE | 2024-07-19 09:46 | HMCIMG ---
Exam Type: CHEST 1VW Clinical Information: CHF exacerbation Comparison: None Findings: Left cardiac pacemaker is noted with leads in place. There is cardiomegaly and there is status post median sternotomy. The lungs are clear of infiltrates. Left-sided cardiac pacemaker is noted with leads in place. Impression: Clear lungs.
--- NOTE | 2024-07-19 12:52 | PN ---
Cardiology Progress Note Date of Service: 07/19/2024 Attending Conduit Mechanic: Dr. Na Dumont Primary Conduit Mechanic: Dr. Dannie Davila Reason for Consult: Elevated troponin Problem List: -Acute blood loss anemia -Acute GI bleed with positive fecal occult, pending GI workup -Elevated troponin -BiV HFrEF (LVEF: 30-35% by echo done 07/17/2024) -Acute on chronic renal insufficiency -CAD s/p 3V CABG in 2008 s/p LHC done in September 2012 which identified inoperable CAD -Paroxysmal atrial fibrillation -ICM s/p ICD implantation in 2012 with generator change out ( [employer]) on 05/16/2017 -HTN -HLP -DM2 -Bilateral HELIO -COPD Subjective: This is a 78y/o female who was seen and evaluated at the bedside today. The patient complains of fatigue and intermittent dizziness with ambulation, but denies any chest pain, chest pressure, palpitations, or shortness of breath. As per the nurse, there were no overnight events. Vitals/Labs Vital Signs Date Time Temp Pulse Resp B/P (MAP) Pulse Ox O2 Delivery O2 Flow Rate FiO2 07/19/24 11:43 98.8 68 20 120/55 98 Room Air 07/19/24 08:00 0 21 General: Awake and alert. No acute distress. Chronically ill appearing. HEENT: Normocephalic, atraumatic. EOMI. Oral mucosa was moist. Facial edema noted. Neck: No masses, JVD, or carotid bruits. Lungs: No respiratory distress. SCM. Bilateral air entry. Clear to auscultation bilaterally. No obvious wheezing, rales, or rhonchi noted. Cardio: Regular rate. Normal S1 and S2. Ectopic beats noted. No obvious murmurs, gallops, or rubs noted. Abdomen: Soft, nontender, nondistended. No organomegaly. Normoactive bowel sounds x 4 quadrants. Extremities. No edema, clubbing, or cyanosis. +2 pulses noted throughout. Neuro: Cranial nerves II through XII are grossly intact. No obvious focal deficits identified. Laboratory Tests 07/19/24 03:23 Assessment: -Acute blood loss anemia -Acute GI bleed with positive fecal occult, pending GI workup -Elevated troponin -BiV HFrEF (LVEF: 30-35% by echo done 07/17/2024) -Acute on chronic renal insufficiency -CAD s/p 3V CABG in 2008 s/p LHC done in September 2012 which identified inoperable CAD -Paroxysmal atrial fibrillation -ICM s/p ICD implantation in 2012 with generator change out (JOEY Sunshine) on 05/16/2017 -HTN -HLP -DM2 -Bilateral HELIO -COPD Plan: 1. Elevated troponin -HS troponin I peak: 934 -LHC in September 2012 identified inoperable CAD, thus no further ischemic workup is warranted. -Recommend restarting aspirin 81 mg daily and she continue on metoprolol succinate 25 mg daily, isosorbide mononitrate ER 30 mg daily, and atorvastatin 40 mg QHS. 2. BiV HFrEF (LVEF: 30-35% by echo done 07/17/2024) -Continue furosemide 40 mg BID. -We will transition metoprolol tartrate to metoprolol succinate 25 mg daily in order to optimize medical therapy. In addition, we will decrease Entresto to 0.5 tablet of 24/26 mg BID due to the patient's low blood pressures. -Please record strict I/O's, daily weights, and restrict fluids to less than 2.0L/day. 3. Paroxysmal atrial fibrillation -12H telemetry: Sinus rhythm with intermittent pacing and PACs -Continue metoprolol succinate 25 mg daily -CHADS2 VASc score: 7 points. HAS BLED score: 3 points. Anticoagulation is on hold for impending GI evaluation secondary to acute blood loss anemia with a positive fecal occult. -Please keep the patient on continuous telemetry monitoring and maintain electrolytes within normal parameters. This case was discussed with my Supervising Physician, Dr. Na Dumont, and the above mentioned plan was formulated and agreed upon. -Progress note written by Jacklyn Ordoñez, MSN, OIL SEAL ASSEMBLER, AGACNP-BC JACKLYN ORDOÑEZ [employer] AND [employer] INST[employer]ER Jul 19, 2024 12:52
--- NOTE | 2024-07-19 16:24 | PN ---
[facility] PROGRESS NOTE Date of Service: Jul 19, 2024 Time of Service: 16:23 SUBJECTIVE: 07/17 this is a late dictation, patient seen at bedside, no acute events overnight. She has been started on diuresis. GI was consulted however defers to do endoscopy at this time until patient more stable from a CHF perspective. 07/18 patient seen at bedside, no acute events overnight. Creatinine stable at 1.6, same as yesterday potassium decreased from 4.5 down to 2.3, we will be repleted according to protocol. She reports she is feeling better after some diuresis. GI is finally take her for EGD on Saturday or Saturday. Echocardiogram showing decreased EF at 30-35% with mild mitral valve regurgitation and trace aortic valve regurgitation 07/19 patient seen at bedside, no acute events overnight. He has no complaints at this time. GI pending possible EGD on Saturday or Saturday. We will follow up. Hemoglobin decreased from 9.4 down to 8.9, patient reports to bloody bowel movements with both dark black blood and bright red blood. REVIEW OF SYSTEMS 12 point review of systems negative unless noted in HPI PHYSICAL EXAM GENERAL APPEARANCE: The patient is awake, alert, and oriented, in no acute cardiopulmonary distress. NEUROLOGICAL: Cranial nerves II-XII grossly intact. Motor is 5/5 in bilateral upper and lower extremities proximal to distal. No sensory deficits. HEENT: Face is symmetric. Pupils are equal and reactive. Extraocular movements are intact. NECK: Supple. No JVD. No thyromegaly. No submental, submandibular, pre- /postauricular, occipital or supraclavicular lymphadenopathy. CHEST: Normal chest expansion. No Telemetry. LUNGS: Crackles noted bilateral lung bases with rhonchorous breath sounds CARDIOVASCULAR: Regular. S1 and S2 normal. No appreciable rubs, murmurs or gallops. ABDOMEN: Soft, nontender, and nondistended. There is no rebound, voluntary guarding, or rigidity. : Deferred. No Ma. EXTREMITIES: 2+ pitting edema bilateral lower extremity SKIN: No skin breakdown. Vital Signs (last 8hr) Date Time Temp Pulse Resp B/P (MAP) Pulse Ox O2 Delivery O2 Flow Rate FiO2 07/19/24 11:43 98.8 68 20 120/55 98 Room Air LABS: Laboratory: Test 07/19/24 03:23 07/18/24 08:47 Range/Units White Blood Count 10.2 # 4.8-10.8 K/uL Red Blood Count 2.96 L 4.00-5.50 MIL/uL Hemoglobin 8.9 L 12.0-16.0 g/dL Hematocrit 28.9 L 36-48 % Mean Corpuscular Volume 97.6 79-99 fL Mean Corpuscular Hemoglobin 30.1 27.0-33.0 pg Mean Corpuscular Hemoglobin Concent 30.8 L 32.0-36.0 g/dL Red Cell Distribution Width 16.0 H 11.0-15.5 % Platelet Count 287 130-400 K/uL Mean Platelet Volume 10.0 7.5-10.5 fL Immature Granulocyte % (Auto) 0.5 0-1 % Neutrophils (%) (Auto) 78.6 H 40.0-77.0 % Lymphocytes (%) (Auto) 13.5 L 21.0-51.0 % Monocytes (%) (Auto) 6.4 3.0-13.0 % Eosinophils (%) (Auto) 0.7 0.0-8.0 % Basophils (%) (Auto) 0.3 0.0-5.0 % Neutrophils # (Auto) 8.0 H 1.8-7.7 K/uL Lymphocytes # (Auto) 1.4 1.0-4.8 K/uL Monocytes # (Auto) 0.7 0.1-1.0 K/uL Eosinophils # (Auto) 0.07 0.00-0.70 K/uL Basophils # (Auto) 0.03 0.00-0.20 K/uL Absolute Immature Granulocyte (auto 0.05 0-1 K/uL Nucleated Red Blood Cells 0.4 H 0.0-0.19 % Prothrombin Time 11.9 H 9.6-11.6 SEC Prothromb Time International Ratio 1.07 0.85-1.15 Sodium Level 144 136-145 mmol/L Potassium Level 4.0 3.5-5.1 mmol/L Chloride Level 109 101-111 mmol/L Carbon Dioxide Level 27 21-32 mmol/L Blood Urea Nitrogen 27 H 7-18 mg/dL Creatinine 1.6 H 0.5-1.0 mg/dL Glomerular Filtration Rate Calc 33 >90 mL/min Random Glucose 152 H 70-105 mg/dL Total Calcium 8.8 8.5-10.1 mg/dL Phosphorus Level 2.5 2.5-4.9 mg/dL Magnesium Level 1.90 1.80-2.40 mg/dL Total Bilirubin 1.1 H 0.2-1.0 mg/dL Aspartate Amino Transf (AST/SGOT) 19 10-37 U/L Alanine Aminotransferase (ALT/SGPT) 10 L 12-78 U/L Alkaline Phosphatase 87 50-136 U/L Total Protein 6.2 6.0-8.3 g/dL Albumin 2.7 L 3.5-5.0 g/dL Current Medications Medications (Trade) Dose Ordered Sig/Fracisco Route PRN Reason Start Time Stop Time Status Last Admin Dose Admin Acetaminophen (TYLenol 500MG TAB) 500 mg Q6H PRN PO MILD PAIN (1-3) 07/16/24 16:30 08/15/24 16:29 07/18/24 13:23 500 MG Aspirin (Aspirin 325mg Tab) 325 mg ONCE PO 07/16/24 14:30 07/16/24 21:30 DC 07/16/24 14:36 325 MG Atorvastatin Calcium (LIPItor 40MG) 40 mg HS PO 07/16/24 21:00 08/15/24 20:59 07/18/24 21:14 40 MG Budesonide (Pulmicort 0.5 Mg/2ml) 0.5 mg BIDRESP IH 07/16/24 18:00 08/15/24 17:59 07/18/24 18:45 0.5 MG EZETIMIBE (Zetia) 10 mg DAILY PO 07/17/24 09:00 08/16/24 08:59 07/19/24 08:48 10 MG Furosemide (LASix 20MG VIAL) 20 mg ONCE IV 07/16/24 14:30 07/16/24 16:03 DC 07/16/24 14:36 20 MG Furosemide (LASix 20MG VIAL) 20 mg Q8H IV 07/16/24 18:00 07/16/24 17:30 DC Furosemide (LASix 20MG VIAL) 20 mg Q8H IV 07/16/24 19:00 07/17/24 23:32 DC 07/17/24 18:34 20 MG Furosemide (LASix 40MG TAB) 40 mg BID@09,17 PO 07/18/24 17:00 08/17/24 16:59 07/19/24 08:48 40 MG Home Med (Home Medication) (Fluticasone/ Vilanterol (B... DAILY IH 07/17/24 09:00 08/16/24 08:59 07/19/24 08:51 1 EACH Insulin Human Regular (humuLIN R 100 UNIT/ML 3ML) INSULIN SLIDING SCAL... ACHS SQ 07/16/24 16:30 08/15/24 16:29 Iron Sucrose 300 mg/Sodium Chloride 250 ml @ 83 mls/hr DAILY IV 07/17/24 09:00 07/19/24 14:00 DC 07/19/24 09:27 83 MLS/HR Isosorbide Mononitrate (Imdur 30mg Sr) 30 mg DAILY PO 07/18/24 12:00 08/17/24 11:59 07/19/24 08:48 30 MG Magnesium Sulfate 50 ml @ 0 mls/hr PROTOCOL IV 07/16/24 17:30 08/15/24 17:29 07/19/24 05:15 25 MLS/HR Metoprolol Succinate (TopROL XL) 25 mg DAILY PO 07/20/24 09:00 08/19/24 08:59 Metoprolol Tartrate (loprESSOR) 12.5 mg BID PO 07/16/24 21:00 07/19/24 23:55 07/19/24 08:48 12.5 MG Nitroglycerin (Nitroglycerin 1gm Oint) 1 inch Q8H PRN TD CHEST PAIN 07/17/24 10:00 07/18/24 11:58 DC Ondansetron HCl (zoFRAN 4MG INJ) 4 mg Q6H PRN IVP NAUSEA/VOMITING 07/16/24 16:30 08/15/24 16:29 Pantoprazole Sodium 80 mg/ Sodium Chloride 100 ml @ 10 mls/hr Q10H IVP 07/16/24 16:00 07/18/24 23:47 DC 07/18/24 17:41 10 MLS/HR Pantoprazole Sodium 80 mg/ Sodium Chloride 100 ml @ 10 mls/hr Q10H IVP 07/19/24 00:30 08/18/24 00:29 07/19/24 07:18 10 MLS/HR Potassium Chloride 100 ml @ 100 mls/hr AD PRN IV POTASSIUM PROTOCOL 07/16/24 17:30 08/15/24 17:29 Potassium Chloride (K-Dur/Klor-Con 20meq) 20 meq AD PRN PO POTASSIUM PROTOCOL 07/16/24 17:30 08/15/24 17:29 Potassium Chloride (KCl 10% Elixir 20meq/15ml) 20 meq AD PRN PO POTASSIUM PROTOCOL 07/16/24 17:30 08/15/24 17:29 07/18/24 17:40 20 MEQ Sacubitril/ Valsartan (Entresto 24 Mg-26 Mg Tablet) 0.5 each BID PO 07/19/24 21:00 08/18/24 20:59 Sacubitril/ Valsartan (Entresto 24 Mg-26 Mg Tablet) 1 each BID PO 07/16/24 21:00 07/19/24 12:35 DC 07/19/24 08:48 1 EACH Vitamin B Complex (Vitamin B-12) 1,000 mcg DAILY PO 07/17/24 09:00 08/16/24 08:59 07/19/24 08:48 1,000 MCG DIAGNOSTICS / RADIOLOGY: [ ] ASSESSMENT: Acute on chronic systolic and diastolic heart failure exacerbation, POA History of advanced ischemic cardiomyopathy with LVEF of about 35-40%, 06/12, POA NSTEMI, POA Acute hypoxemic respiratory failure with cardiogenic pulmonary edema, POA Progressive anemia with concerns for GI bleeding, POA History of recent anticoagulation with Eliquis as outpatient, POA Rule out outpatient atrial fibrillation, POA History of multivessel coronary artery disease with prior history of PR in 2008 History of coronary artery bypass vessel grafting times three-vessel in 2008, POA History of documented inoperable coronary artery disease by cardiac catheterization in 09/2012, POA Underlying history of hypertension, POA Hyperlipidemia, POA Obesity, POA Underlying history of ICD placement, POA PLAN: Continue PCCU Continue IV diuretics with IV Lasix 40mg BID Continue isosorbide 30mg q24h Monitor urine output closely Hold anticoagulation moving forward Cardiology consulted, appreciate recommendations Transfuse to maintain hemoglobin greater than 7-8 due to active ACS H&H will be monitored q.6 hours tonight, and all labs will be repeated in the morning, maintain K greater than four and magnesium greater than two GI consulted, appreciate recommendations DVT prophylaxis with SCDs and GI prophylaxis with Protonix Echo showing EF 30-35% with no major valvular abnormalities Disposition: Pending improvement in volume overload, and GI recommendations, possible endoscopy SEBLE JACKSON MD Jul 19, 2024 16:24
[2024-07-19] MEDS: SACUBITRIL/VALSARTAN 1 EACH TABLET PO SCH (21:04)
[2024-07-20] VITALS (12 sets, daily range): BP systolic 86–123; BP diastolic 37–75; PULSE 60–88; RESP 16–20; TEMP 97.7–98.6; O2SAT 97–100
[2024-07-20 04:24] LABS: BASOPHILS # (AUTO) 0.03 K/uL (0.00-0.20); BASOPHILS % (AUTO) 0.4 % (0.0-5.0); EOSINOPHILS # (AUTO) 0.14 K/uL (0.00-0.70); EOSINOPHILS % (AUTO) 1.9 % (0.0-8.0); HEMATOCRIT 29.3 % (36-48); IMMATURE GRANULOCYTE ABSOLUTE 0.03 K/uL (0-1); LYMPHOCYTES # (AUTO) 1.6 K/uL (1.0-4.8); LYMPHOCYTES % (AUTO) 21.4 % (21.0-51.0); MEAN CORPUSCULAR HEMOGLOBIN 30.7 pg (27.0-33.0); MEAN CORPUSCULAR HGB CONC 31.4 g/dL (32.0-36.0); MEAN CORPUSCULAR VOLUME 97.7 fL (79-99); MONOCYTES # (AUTO) 0.7 K/uL (0.1-1.0); MONOCYTES % (AUTO) 8.6 % (3.0-13.0); NEUTROPHILS # (AUTO) 5.1 K/uL (1.8-7.7); NEUTROPHILS % (AUTO) 67.3 % (40.0-77.0); NUCLEATED RED BLOOD CELLS 0.7 % (0.0-0.19); PLATELET COUNT (AUTO) 295 K/uL (130-400); RED CELL DISTRIBUTION WIDTH 16.2 % (11.0-15.5); WHITE BLOOD COUNT (AUTO) 7.5 K/uL (4.8-10.8)
[2024-07-20 04:34] LABS: CREATININE 1.7 mg/dL (0.5-1.0); POTASSIUM 3.7 mmol/L (3.5-5.1)
[2024-07-20] MEDS: PoTASSium chloRIDE 20MEQ ER 20 MEQ ERTAB PO PRN (05:13)
--- NOTE | 2024-07-20 06:45 | PN ---
[facility] Cardiology Progress Note CARDIOLOGY PROGRESS NOTE JULY 20, 2024 Problems: 1. GI bleed 2. Elevated troponin 3. Ischemic cardiomyopathy with ejection fraction of 30-35% by echo June 2024 4. CAD status post aortocoronary bypass graft surgery 2008 with inoperable progression of disease documented and left heart catheterization September 2012 4. PCD implant 2012 with generator replacement with a [employer] device April 2017 5. Paroxysmal atrial fibrillation anticoagulation currently on hold 6. Hypertension 7. Dyslipidemia 8. 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 COPD 10. Chronic kidney disease stage IIIB The patient denies any chest pain or shortness of breath. She is currently lying comfortably flat. There was no elevation of the jugular venous pressure. Blood pressure is 110/40 heart rate 70s patient is afebrile. Hemoglobin 9 two platelet count [id number] potassium 3.7 BUN23 creatinine 1.7 Up from 1.4 on admission. The patient continues on acetamide furosemide 40 mg p.o. b.i.d. insulin scale isosorbide mononitrate metoprolol succinate pantoprazole potassium protocol and reduced dose of Entresto. 2D echocardiogram this admission again shows an ejection fraction of 30-35%. There was trace aortic regurgitation mild mitral regurgitation. No pericardial effusion. Given the rising creatinine I would reduce her furosemide to 40 mg daily. Home dose was 20 mg daily. Telemetry shows sinus rhythm with the occasional PACs. Timing of endoscopy procedures as per GI. There was no absolute contraindication to the procedure but she has a moderate risk patient due to underlying inoperable coronary disease and LV dysfunction. SHANNON MUSTAFA MD Jul 20, 2024 06:45
[2024-07-20] MEDS: furoSEMIDE 40 MG TABLET PO SCH (09:00)
[2024-07-20] MEDS: metOPROLol sucCINATE 25 MG TAB.SR.24H PO SCH (09:37)
[2024-07-20] MEDS ORDERED: ketaMINE 50MG/ML SYRINGE 50 MG/ML DISP.SYRIN ONE (10:59)
[2024-07-20] MEDS ORDERED: proPOFol 10 MG/ML 20ML VIAL IV ONE (11:00)
--- NOTE | 2024-07-20 11:00 | NUR ---
THIS PATIENT WAS RETURNED FROM GI DUE TO HYPOTENSION WITH SBP IN 70S PER GI NURSE. VITALS TAKEN UPON ARRIVAL AND BP WAS 90/35. PATIENT DENIES ANY DIZZINESS NOR SHORTNESS OF BREATH. ORDERS GIVEN PER DR. ALFRED TO NOTIFY HER WHEN PATIENT IS STABLE TO HAVE EGD DONE. Addendum: 07/20/24 at 1451 by JESSE ADORNO RN RN BP OF 95/44, HR 69 UPON RETURN.
[2024-07-20] MEDS ORDERED: ePHEDrine SULFate 50 MG/ML AMPULE ONE (11:04)
--- NOTE | 2024-07-20 14:45 | NUR ---
PATIENT WAS STOOD UP WITH MARCOPT AND SHE BECAME HYPOTENSIVE AND WAS LAID BACK DOWN. BP WAS 78/36 AFTER SHE WAS LAID BACK DOWN. PATIENT WAS PLACED IN REVERSE TRANSDELENBURG POSITION AND BP AFTER AND 86/39. DR. MUSTAFA WAS NOTIFIED AND IMDUR WAS DISCONTINUED AND ENTRESTO WAS PLACED ON HOLD UP FURTHER ASSESSMENT TOMORROW MORNING.
--- NOTE | 2024-07-20 16:38 | PN ---
[facility] PROGRESS NOTE Date of Service: Jul 20, 2024 Time of Service: 16:36 SUBJECTIVE: 07/17 this is a late dictation, patient seen at bedside, no acute events overnight. She has been started on diuresis. GI was consulted however defers to do endoscopy at this time until patient more stable from a CHF perspective. 07/18 patient seen at bedside, no acute events overnight. Creatinine stable at 1.6, same as yesterday potassium decreased from 4.5 down to 2.3, we will be repleted according to protocol. She reports she is feeling better after some diuresis. GI is finally take her for EGD on Saturday or Saturday. Echocardiogram showing decreased EF at 30-35% with mild mitral valve regurgitation and trace aortic valve regurgitation 07/19 patient seen at bedside, no acute events overnight. He has no complaints at this time. GI pending possible EGD on Saturday or Saturday. We will follow up. Hemoglobin decreased from 9.4 down to 8.9, patient reports to bloody bowel movements with both dark black blood and bright red blood. 07/20 patient is seen and examined, no acute events overnight, scheduled for EGD today, per discussion with the nurse, patient had mild drop in blood pressure, furosemide switched to from 40 mg p.o. b.i.d. to 40 mg p.o. daily, Imdur 30 mg p.o. daily has been discontinued. We will continue to closely monitoring of the patient's BP, possible rescheduled EGD tomorrow day after tomorrow, pending further GI recommendations. Discussed with the patient. REVIEW OF SYSTEMS 12 point review of systems negative unless noted in HPI PHYSICAL EXAM GENERAL APPEARANCE: The patient is awake, alert, and oriented, in no acute cardiopulmonary distress. NEUROLOGICAL: Cranial nerves II-XII grossly intact. Motor is 5/5 in bilateral upper and lower extremities proximal to distal. No sensory deficits. HEENT: Face is symmetric. Pupils are equal and reactive. Extraocular movements are intact. NECK: Supple. No JVD. No thyromegaly. No submental, submandibular, pre-/postauricular, occipital or supraclavicular lymphadenopathy. CHEST: Normal chest expansion. No Telemetry. LUNGS: Crackles noted bilateral lung bases with rhonchorous breath sounds CARDIOVASCULAR: Regular. S1 and S2 normal. No appreciable rubs, murmurs or gallops. ABDOMEN: Soft, nontender, and nondistended. There is no rebound, voluntary guarding, or rigidity. : Deferred. No Ma. EXTREMITIES: 2+ pitting edema bilateral lower extremity SKIN: No skin breakdown. Vital Signs (last 8hr) Date Time Temp Pulse Resp B/P (MAP) Pulse Ox O2 Delivery O2 Flow Rate FiO2 07/20/24 14:20 86 86/39 96/37 96/37 102/48 07/20/24 12:00 98.2 87 20 97/56 99 Room Air LABS: Laboratory: Test 07/20/24 15:33 07/20/24 03:56 07/19/24 03:23 Range/Units Whole Blood Glucose 172 #H 70-110 MG/DL White Blood Count 7.5 4.8-10.8 K/uL Red Blood Count 3.00 L 4.00-5.50 MIL/uL Hemoglobin 9.2 L 12.0-16.0 g/dL Hematocrit 29.3 L 36-48 % Mean Corpuscular Volume 97.7 79-99 fL Mean Corpuscular Hemoglobin 30.7 27.0-33.0 pg Mean Corpuscular Hemoglobin Concent 31.4 L 32.0-36.0 g/dL Red Cell Distribution Width 16.2 H 11.0-15.5 % Platelet Count 295 130-400 K/uL Mean Platelet Volume 9.9 7.5-10.5 fL Immature Granulocyte % (Auto) 0.4 0-1 % Neutrophils (%) (Auto) 67.3 40.0-77.0 % Lymphocytes (%) (Auto) 21.4 21.0-51.0 % Monocytes (%) (Auto) 8.6 3.0-13.0 % Eosinophils (%) (Auto) 1.9 0.0-8.0 % Basophils (%) (Auto) 0.4 0.0-5.0 % Neutrophils # (Auto) 5.1 1.8-7.7 K/uL Lymphocytes # (Auto) 1.6 1.0-4.8 K/uL Monocytes # (Auto) 0.7 0.1-1.0 K/uL Eosinophils # (Auto) 0.14 0.00-0.70 K/uL Basophils # (Auto) 0.03 0.00-0.20 K/uL Absolute Immature Granulocyte (auto 0.03 0-1 K/uL Nucleated Red Blood Cells 0.7 H 0.0-0.19 % Sodium Level 145 136-145 mmol/L Potassium Level 3.7 3.5-5.1 mmol/L Chloride Level 108 101-111 mmol/L Carbon Dioxide Level 30 21-32 mmol/L Blood Urea Nitrogen 23 H 7-18 mg/dL Creatinine 1.7 H 0.5-1.0 mg/dL Glomerular Filtration Rate Calc 31 >90 mL/min Random Glucose 98 70-105 mg/dL Total Calcium 8.8 8.5-10.1 mg/dL Prothrombin Time 11.9 H 9.6-11.6 SEC Prothromb Time International Ratio 1.07 0.85-1.15 Phosphorus Level 2.5 2.5-4.9 mg/dL Magnesium Level 1.90 1.80-2.40 mg/dL Current Medications Medications (Trade) Dose Ordered Sig/Fracisco Route PRN Reason Start Time Stop Time Status Last Admin Dose Admin Acetaminophen (TYLenol 500MG TAB) 500 mg Q6H PRN PO MILD PAIN (1-3) 07/16/24 16:30 08/15/24 16:29 07/20/24 01:31 500 MG Aspirin (Aspirin 325mg Tab) 325 mg ONCE PO 07/16/24 14:30 07/16/24 21:30 DC 07/16/24 14:36 325 MG Atorvastatin Calcium (LIPItor 40MG) 40 mg HS PO 07/16/24 21:00 08/15/24 20:59 07/19/24 21:03 40 MG Budesonide (Pulmicort 0.5 Mg/2ml) 0.5 mg BIDRESP IH 07/16/24 18:00 08/15/24 17:59 07/19/24 19:51 0.5 MG EZETIMIBE (Zetia) 10 mg DAILY PO 07/17/24 09:00 08/16/24 08:59 07/20/24 09:38 10 MG Furosemide (LASix 20MG VIAL) 20 mg ONCE IV 07/16/24 14:30 07/16/24 16:03 DC 07/16/24 14:36 20 MG Furosemide (LASix 20MG VIAL) 20 mg Q8H IV 07/16/24 18:00 07/16/24 17:30 DC Furosemide (LASix 20MG VIAL) 20 mg Q8H IV 07/16/24 19:00 07/17/24 23:32 DC 07/17/24 18:34 20 MG Furosemide (LASix 40MG TAB) 40 mg BID@09,17 PO 07/18/24 17:00 07/20/24 06:41 DC 07/19/24 17:15 40 MG Furosemide (LASix 40MG TAB) 40 mg DAILY PO 07/20/24 07:00 08/17/24 16:59 07/20/24 09:37 40 MG Home Med (Home Medication) (Fluticasone/ Vilanterol (B... DAILY IH 07/17/24 09:00 08/16/24 08:59 07/20/24 09:43 1 EACH Insulin Human Regular (humuLIN R 100 UNIT/ML 3ML) INSULIN SLIDING SCAL... ACHS SQ 07/16/24 16:30 08/15/24 16:29 07/19/24 17:17 2 UNIT Iron Sucrose 300 mg/Sodium Chloride 250 ml @ 83 mls/hr DAILY IV 07/17/24 09:00 07/19/24 14:00 DC 07/19/24 09:27 83 MLS/HR Isosorbide Mononitrate (Imdur 30mg Sr) 30 mg DAILY PO 07/18/24 12:00 07/20/24 15:18 DC 07/20/24 09:37 30 MG Magnesium Sulfate 50 ml @ 0 mls/hr PROTOCOL IV 07/16/24 17:30 08/15/24 17:29 07/19/24 05:15 25 MLS/HR Metoprolol Succinate (TopROL XL) 25 mg DAILY PO 07/20/24 09:00 08/19/24 08:59 07/20/24 09:37 25 MG Metoprolol Tartrate (loprESSOR) 12.5 mg BID PO 07/16/24 21:00 07/19/24 23:55 DC 07/19/24 21:03 12.5 MG Nitroglycerin (Nitroglycerin 1gm Oint) 1 inch Q8H PRN TD CHEST PAIN 07/17/24 10:00 07/18/24 11:58 DC Ondansetron HCl (zoFRAN 4MG INJ) 4 mg Q6H PRN IVP NAUSEA/VOMITING 07/16/24 16:30 08/15/24 16:29 Pantoprazole Sodium 80 mg/ Sodium Chloride 100 ml @ 10 mls/hr Q10H IVP 07/16/24 16:00 07/18/24 23:47 DC 07/18/24 17:41 10 MLS/HR Pantoprazole Sodium 80 mg/ Sodium Chloride 100 ml @ 10 mls/hr Q10H IVP 07/19/24 00:30 08/18/24 00:29 07/19/24 17:26 10 MLS/HR Potassium Chloride 100 ml @ 100 mls/hr AD PRN IV POTASSIUM PROTOCOL 07/16/24 17:30 08/15/24 17:29 Potassium Chloride (K-Dur/Klor-Con 20meq) 20 meq AD PRN PO POTASSIUM PROTOCOL 07/16/24 17:30 08/15/24 17:29 07/20/24 06:50 20 MEQ Potassium Chloride (KCl 10% Elixir 20meq/15ml) 20 meq AD PRN PO POTASSIUM PROTOCOL 07/16/24 17:30 08/15/24 17:29 07/18/24 17:40 20 MEQ Sacubitril/ Valsartan (Entresto 24 Mg-26 Mg Tablet) 0.5 each BID PO 07/19/24 21:00 08/18/24 20:59 Hold 07/20/24 09:37 0.5 EACH Sacubitril/ Valsartan (Entresto 24 Mg-26 Mg Tablet) 1 each BID PO 07/16/24 21:00 07/19/24 12:35 DC 07/19/24 08:48 1 EACH Vitamin B Complex (Vitamin B-12) 1,000 mcg DAILY PO 07/17/24 09:00 08/16/24 08:59 07/20/24 09:37 1,000 MCG DIAGNOSTICS / RADIOLOGY: [ ] ASSESSMENT: Acute on chronic systolic and diastolic heart failure exacerbation, POA History of advanced ischemic cardiomyopathy with LVEF of about 35-40%, 06/12, POA NSTEMI, POA Acute hypoxemic respiratory failure with cardiogenic pulmonary edema, POA Progressive anemia with concerns for GI bleeding, POA History of recent anticoagulation with Eliquis as outpatient, POA Rule out outpatient atrial fibrillation, POA History of multivessel coronary artery disease with prior history of [place] in 2008 History of coronary artery bypass vessel grafting times three-vessel in 2008, P OA History of documented inoperable coronary artery disease by cardiac catheterization in 09/2012, POA Underlying history of hypertension, POA Hyperlipidemia, POA Obesity, POA Underlying history of ICD placement, POA PLAN: Continue PCCU Lasix changed to 40 mg p.o. daily Imdur discontinued, monitor BP Monitor urine output closely Hold anticoagulation moving forward Cardiology input noted and appreciated Transfuse to maintain hemoglobin greater than 7-8 due to active ACS Continue to follow CBC transfuse as needed Continue to follow GI input and recommendation DVT prophylaxis with SCDs and GI prophylaxis with Protonix Echo showing EF 30-35% with no major valvular abnormalities Disposition: Pending improvement in volume overload, and GI recommendations Total time spent greater than 30 minutes. CHARLIE WIGGINS MD Jul 20, 2024 16:38
--- NOTE | 2024-07-20 19:19 | NUR ---
DC Planning- SNF PER TEMPO REPORT, PATIENT'S BP DROPPING WHEN AMBULATING WITH PT. DISCUSSED DC OPTIONS. PATIENT OPEN TO SNF AND SIGNED [facility]/CL FOR [facility]. PENDING ORDER, PASSR, AND TO COMPLETE REFERRAL. CM PENDING TO UPDATE ATTENDING ON CHANGE IN PLAN Addendum: 07/20/24 at 1921 by JADEN HARGROVE CM Amended: Links added.
[2024-07-21] VITALS (11 sets, daily range): BP systolic 99–118; BP diastolic 41–55; PULSE 51–88; RESP 16–20; TEMP 97.5–98.4; O2SAT 98–99
[2024-07-21 04:06] LABS: BASOPHILS # (AUTO) 0.03 K/uL (0.00-0.20); BASOPHILS % (AUTO) 0.5 % (0.0-5.0); EOSINOPHILS # (AUTO) 0.15 K/uL (0.00-0.70); EOSINOPHILS % (AUTO) 2.3 % (0.0-8.0); HEMATOCRIT 28.9 % (36-48); IMMATURE GRANULOCYTE ABSOLUTE 0.03 K/uL (0-1); LYMPHOCYTES # (AUTO) 1.5 K/uL (1.0-4.8); MEAN CORPUSCULAR HEMOGLOBIN 31.1 pg (27.0-33.0); MEAN CORPUSCULAR HGB CONC 30.8 g/dL (32.0-36.0); MONOCYTES # (AUTO) 0.7 K/uL (0.1-1.0); MONOCYTES % (AUTO) 10.5 % (3.0-13.0); NEUTROPHILS # (AUTO) 4.2 K/uL (1.8-7.7); NEUTROPHILS % (AUTO) 63.2 % (40.0-77.0); NUCLEATED RED BLOOD CELLS 0.3 % (0.0-0.19); PLATELET COUNT (AUTO) 271 K/uL (130-400); RED BLOOD CELL COUNT(AUTO) 2.86 MIL/uL (4.00-5.50); RED CELL DISTRIBUTION WIDTH 16.6 % (11.0-15.5); WHITE BLOOD COUNT (AUTO) 6.7 K/uL (4.8-10.8)
[2024-07-21 04:32] LABS: ALBUMIN 2.5 g/dL (3.5-5.0); BILIRUBIN,TOTAL 0.5 mg/dL (0.2-1.0); CREATININE 2.2 mg/dL (0.5-1.0); MAGNESIUM 2.1 mg/dL (1.80-2.40); POTASSIUM 4.3 mmol/L (3.5-5.1); TOTAL PROTEIN, SERUM 5.9 g/dL (6.0-8.3)
--- NOTE | 2024-07-21 04:51 | NUR ---
PT AWAKE AND ALERT, REFUSED TO BATHE AT THIS TIME
--- NOTE | 2024-07-21 08:24 | PN ---
[facility] Cardiology Progress Note Cardiology progress note dictated for Dannie Mustafa MD Date of service 07/21/2024 Problem list: 1. GI bleed 2. Elevated troponin 3. Ischemic cardiomyopathy with ejection fraction of 30-35% by echo June 2024 4. CAD status post aortocoronary bypass graft surgery 2008 with inoperable progression of disease documented and left heart catheterization September 2012 4. PCD implant 2012 with generator replacement with a [employer] device April 2017 5. Paroxysmal atrial fibrillation anticoagulation currently on hold 6. Hypertension 7. Dyslipidemia 8. 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 COPD 10. Chronic kidney disease stage IIIB Review of blood work: CBC this morning hemoglobin of 8.9 hematocrit of 28.9 platelets of 271 with white blood cells of six. Basic metabolic panel with a sodium of 146, potassium 4.3 BUN of 29, creatinine of 2.2, magnesium of 2.10 and a GFR of 22. Current medications: Metoprolol succinate 25 mg daily, furosemide 40 mg daily p.o., pantoprazole drip, acetamide 10 mg daily, atorvastatin 40 mg daily. Assessment/plan: 78-year-old female presented with complaints of shortness of breath and an elevated BNP, low hemoglobin. Has been diagnosed with GI bleed. She has a history of paroxysmal atrial fibrillation currently on hold and is being diuresed. This morning she has a blood pressure of 111/41 heart rate of 60 beats per minute and irregular lungs are clear to auscultation , no JVD, no pedal edema noted. She is lying flat in bed comfortably without shortness of breath. Yesterday she was noted to have an increase in creatinine and furosemide was decreased to 40 mg daily. Creatinine today is a 2.2 with history of CKD 3B. Patient is pending endoscopy today and is NPO. We will continue to hold anticoagulation and monitor BMP. Addendum. The patient went for endoscopy yesterday but the procedure was canceled because of hypotension. This occurred despite reducing Entresto medication on admission. Currently Entresto and isosorbide has been placed on hold. She will receive her metoprolol medicine this morning. Pressure is better today plans are tentatively to proceed with endoscopy today. Review re sults when available. Currently she is resting comfortably flat with no shortness of breath. ROBERT MURPHY Jul 21, 2024 08:24 DANNIE MUSTAFA MD Jul 21, 2024 08:53
--- NOTE | 2024-07-21 13:57 | PN ---
[facility] PROGRESS NOTE Date of Service: Jul 21, 2024 Time of Service: 13:54 SUBJECTIVE: 07/17 this is a late dictation, patient seen at bedside, no acute events overnight. She has been started on diuresis. GI was consulted however defers to do endoscopy at this time until patient more stable from a CHF perspective. 07/18 patient seen at bedside, no acute events overnight. Creatinine stable at 1.6, same as yesterday potassium decreased from 4.5 down to 2.3, we will be repleted according to protocol. She reports she is feeling better after some diuresis. GI is finally take her for EGD on Saturday or Saturday. Echocardiogram showing decreased EF at 30-35% with mild mitral valve regurgitation and trace aortic valve regurgitation 07/19 patient seen at bedside, no acute events overnight. He has no complaints at this time. GI pending possible EGD on Saturday or Saturday. We will follow up. Hemoglobin decreased from 9.4 down to 8.9, patient reports to bloody bowel movements with both dark black blood and bright red blood. 07/20 patient is seen and examined, no acute events overnight, scheduled for EGD today, per discussion with the nurse, patient had mild drop in blood pressure, furosemide switched to from 40 mg p.o. b.i.d. to 40 mg p.o. daily, Imdur 30 mg p.o. daily has been discontinued. We will continue to closely monitoring of the patient's BP, possible rescheduled EGD tomorrow day after tomorrow, pending further GI recommendations. Discussed with the patient. 07/21 the patient has been seen and examined during my rounding, no acute events over tonight, hemodynamically stable, BP 112/55, afebrile, saturating normal on room air, denies chest pain, shortness shortness for breath, no nausea, no vomiting. Hemoglobin today at 8.9, hematocrit 28.9, denies melena, no hematochezia, no hematemesis. Pending further GI recommendations in terms rescheduling the EGD. Today's creatinine at 2.2. Patient currently on furosemide 40 mg p.o. daily, continue close monitoring of the patient's renal function, if continue to get worse we will request Nephrology consultation. REVIEW OF SYSTEMS 12 point review of systems negative unless noted in HPI PHYSICAL EXAM GENERAL APPEARANCE: The patient is awake, alert, and oriented, in no acute cardiopulmonary distress. NEUROLOGICAL: Cranial nerves II-XII grossly intact. Motor is 5/5 in bilateral upper and lower extremities proximal to distal. No sensory deficits. HEENT: Face is symmetric. Pupils are equal and reactive. Extraocular movements are intact. NECK: Supple. No JVD. No thyromegaly. No submental, submandibular, pre- /postauricular, occipital or supraclavicular lymphadenopathy. CHEST: Normal chest expansion. No Telemetry. LUNGS: Crackles noted bilateral lung bases with rhonchorous breath sounds CARDIOVASCULAR: Regular. S1 and S2 normal. No appreciable rubs, murmurs or gallops. ABDOMEN: Soft, nontender, and nondistended. There is no rebound, voluntary guarding, or rigidity. : Deferred. No Ma. EXTREMITIES: 2+ pitting edema bilateral lower extremity SKIN: No skin breakdown. Vital Signs (last 8hr) Date Time Temp Pulse Resp B/P (MAP) Pulse Ox O2 Delivery O2 Flow Rate FiO2 07/21/24 11:00 97.5 70 20 112/55 98 Room Air 07/21/24 07:30 63 18 N/A Room Air 21 07/21/24 07:29 63 18 07/21/24 07:15 99 Room Air* 0 21 07/21/24 07:00 98.2 51 20 111/41 97 Room Air LABS: Laboratory: Test 07/21/24 11:05 07/21/24 03:42 Range/Units Whole Blood Glucose 159 H 70-110 MG/DL Bedside Glucose Comment Notified Nurse White Blood Count 6.7 4.8-10.8 K/uL Red Blood Count 2.86 L 4.00-5.50 MIL/uL Hemoglobin 8.9 L 12.0-16.0 g/dL Hematocrit 28.9 L 36-48 % Mean Corpuscular Volume 101.0 H 79-99 fL Mean Corpuscular Hemoglobin 31.1 27.0-33.0 pg Mean Corpuscular Hemoglobin Concent 30.8 L 32.0-36.0 g/dL Red Cell Distribution Width 16.6 H 11.0-15.5 % Platelet Count 271 130-400 K/uL Mean Platelet Volume 9.8 7.5-10.5 fL Immature Granulocyte % (Auto) 0.5 0-1 % Neutrophils (%) (Auto) 63.2 40.0-77.0 % Lymphocytes (%) (Auto) 23.0 21.0-51.0 % Monocytes (%) (Auto) 10.5 3.0-13.0 % Eosinophils (%) (Auto) 2.3 0.0-8.0 % Basophils (%) (Auto) 0.5 0.0-5.0 % Neutrophils # (Auto) 4.2 1.8-7.7 K/uL Lymphocytes # (Auto) 1.5 1.0-4.8 K/uL Monocytes # (Auto) 0.7 0.1-1.0 K/uL Eosinophils # (Auto) 0.15 0.00-0.70 K/uL Basophils # (Auto) 0.03 0.00-0.20 K/uL Absolute Immature Granulocyte (auto 0.03 0-1 K/uL Nucleated Red Blood Cells 0.3 H 0.0-0.19 % Sodium Level 146 H 136-145 mmol/L Potassium Level 4.3 3.5-5.1 mmol/L Chloride Level 110 101-111 mmol/L Carbon Dioxide Level 28 21-32 mmol/L Blood Urea Nitrogen 29 H 7-18 mg/dL Creatinine 2.2 H 0.5-1.0 mg/dL Glomerular Filtration Rate Calc 22 >90 mL/min Random Glucose 123 H 70-105 mg/dL Total Calcium 8.5 8.5-10.1 mg/dL Magnesium Level 2.10 1.80-2.40 mg/dL Total Bilirubin 0.5 0.2-1.0 mg/dL Aspartate Amino Transf (AST/SGOT) 20 10-37 U/L Alanine Aminotransferase (ALT/SGPT) 12 12-78 U/L Alkaline Phosphatase 95 50-136 U/L Total Protein 5.9 L 6.0-8.3 g/dL Albumin 2.5 L 3.5-5.0 g/dL Current Medications Medications (Trade) Dose Ordered Sig/Fracisco Route PRN Reason Start Time Stop Time Status Last Admin Dose Admin Acetaminophen (TYLenol 500MG TAB) 500 mg Q6H PRN PO MILD PAIN (1-3) 07/16/24 16:30 08/15/24 16:29 07/21/24 11:29 500 MG Aspirin (Aspirin 325mg Tab) 325 mg ONCE PO 07/16/24 14:30 07/16/24 21:30 DC 07/16/24 14:36 325 MG Atorvastatin Calcium (LIPItor 40MG) 40 mg HS PO 07/16/24 21:00 08/15/24 20:59 07/20/24 20:53 40 MG Budesonide (Pulmicort 0.5 Mg/2ml) 0.5 mg BIDRESP IH 07/16/24 18:00 08/15/24 17:59 07/21/24 07:28 0.5 MG EZETIMIBE (Zetia) 10 mg DAILY PO 07/17/24 09:00 08/16/24 08:59 07/20/24 09:38 10 MG Furosemide (LASix 20MG VIAL) 20 mg ONCE IV 07/16/24 14:30 07/16/24 16:03 DC 07/16/24 14:36 20 MG Furosemide (LASix 20MG VIAL) 20 mg Q8H IV 07/16/24 18:00 07/16/24 17:30 DC Furosemide (LASix 20MG VIAL) 20 mg Q8H IV 07/16/24 19:00 07/17/24 23:32 DC 07/17/24 18:34 20 MG Furosemide (LASix 40MG TAB) 40 mg BID@09,17 PO 07/18/24 17:00 07/20/24 06:41 DC 07/19/24 17:15 40 MG Furosemide (LASix 40MG TAB) 40 mg DAILY PO 07/20/24 07:00 08/17/24 16:59 07/20/24 09:37 40 MG Home Med (Home Medication) (Fluticasone/ Vilanterol (B... DAILY IH 07/17/24 09:00 08/16/24 08:59 07/20/24 09:43 1 EACH Insulin Human Regular (humuLIN R 100 UNIT/ML 3ML) INSULIN SLIDING SCAL... ACHS SQ 07/16/24 16:30 08/15/24 16:29 07/19/24 17:17 2 UNIT Iron Sucrose 300 mg/Sodium Chloride 250 ml @ 83 mls/hr DAILY IV 07/17/24 09:00 07/19/24 14:00 DC 07/19/24 09:27 83 MLS/HR Isosorbide Mononitrate (Imdur 30mg Sr) 30 mg DAILY PO 07/18/24 12:00 07/20/24 15:18 DC 07/20/24 09:37 30 MG Magnesium Sulfate 50 ml @ 0 mls/hr PROTOCOL IV 07/16/24 17:30 08/15/24 17:29 07/19/24 05:15 25 MLS/HR Metoprolol Succinate (TopROL XL) 25 mg DAILY PO 07/20/24 09:00 08/19/24 08:59 07/20/24 09:37 25 MG Metoprolol Tartrate (loprESSOR) 12.5 mg BID PO 07/16/24 21:00 07/19/24 23:55 DC 07/19/24 21:03 12.5 MG Nitroglycerin (Nitroglycerin 1gm Oint) 1 inch Q8H PRN TD CHEST PAIN 07/17/24 10:00 07/18/24 11:58 DC Ondansetron HCl (zoFRAN 4MG INJ) 4 mg Q6H PRN IVP NAUSEA/VOMITING 07/16/24 16:30 08/15/24 16:29 Pantoprazole Sodium 80 mg/ Sodium Chloride 100 ml @ 10 mls/hr Q10H IVP 07/16/24 16:00 07/18/24 23:47 DC 07/18/24 17:41 10 MLS/HR Pantoprazole Sodium 80 mg/ Sodium Chloride 100 ml @ 10 mls/hr Q10H IVP 07/19/24 00:30 08/18/24 00:29 07/21/24 13:38 10 MLS/HR Potassium Chloride 100 ml @ 100 mls/hr AD PRN IV POTASSIUM PROTOCOL 07/16/24 17:30 08/15/24 17:29 Potassium Chloride (K-Dur/Klor-Con 20meq) 20 meq AD PRN PO POTASSIUM PROTOCOL 07/16/24 17:30 08/15/24 17:29 07/20/24 06:50 20 MEQ Potassium Chloride (KCl 10% Elixir 20meq/15ml) 20 meq AD PRN PO POTASSIUM PROTOCOL 07/16/24 17:30 08/15/24 17:29 07/18/24 17:40 20 MEQ Sacubitril/ Valsartan (Entresto 24 Mg-26 Mg Tablet) 0.5 each BID PO 07/19/24 21:00 08/18/24 20:59 Hold 07/20/24 09:37 0.5 EACH Sacubitril/ Valsartan (Entresto 24 Mg-26 Mg Tablet) 1 each BID PO 07/16/24 21:00 07/19/24 12:35 DC 07/19/24 08:48 1 EACH Vitamin B Complex (Vitamin B-12) 1,000 mcg DAILY PO 07/17/24 09:00 08/16/24 08:59 07/20/24 09:37 1,000 MCG DIAGNOSTICS / RADIOLOGY: [ ] ASSESSMENT: Acute on chronic systolic and diastolic heart failure exacerbation, POA History of advanced ischemic cardiomyopathy with LVEF of about 35-40%, 06/12, P OA NSTEMI, POA Acute hypoxemic respiratory failure with cardiogenic pulmonary edema, POA Progressive anemia with concerns for GI bleeding, POA History of recent anticoagulation with Eliquis as outpatient, POA Rule out outpatient atrial fibrillation, POA History of multivessel coronary artery disease with prior history of [place] in 2008 History of coronary artery bypass vessel grafting times three-vessel in 2008, POA History of documented inoperable coronary artery disease by cardiac catheterization in 09/2012, POA Underlying history of hypertension, POA Hyperlipidemia, POA Obesity, POA Underlying history of ICD placement, POA PLAN: Continue PCCU Lasix changed to 40 mg p.o. daily Imdur discontinued, monitor BP Monitor urine output closely Hold anticoagulation moving forward Cardiology input noted and appreciated Transfuse to maintain hemoglobin greater than 7-8 due to active ACS Continue to follow CBC transfuse as needed Continue to follow GI input and recommendation DVT prophylaxis with SCDs and GI prophylaxis with Protonix Echo showing EF 30-35% with no major valvular abnormalities Disposition: Pending EGD by GI, monitor hemoglobin, transfuse as needed, close monitor the patient's renal function in a.m.. Total time spent greater than 30 minutes. CHARLIE WIGGINS MD Jul 21, 2024 13:57
[2024-07-22] VITALS (15 sets, daily range): BP systolic 101–155; BP diastolic 41–72; PULSE 57–75; RESP 16–20; TEMP 97.6–98.7; O2SAT 97–98
[2024-07-22 07:30] LABS: HEMATOCRIT 30.9 % (36-48)
--- NOTE | 2024-07-22 08:05 | NUR ---
DR. ALFRED CALLED TO CHECK ON PATIENT'S BLOOD PRESSURE AND LAB RESULTS AND WAS ADVISED OF V/S AND LAB. PT TO HAVE EGD AND DR. WITT HAS TO COORDINATE THE EGD WITH ANESTHESIA.
--- NOTE | 2024-07-22 08:07 | PN ---
[facility] Cardiology Progress Note CARDIOLOGY PROGRESS NOTE JULY 22, 2024 Problems: 1. GI bleed 2. Elevated troponin 3. Ischemic cardiomyopathy with ejection fraction of 30-35% by echo June 2024 4. CAD status post aortocoronary bypass graft surgery 2008 with inoperable progression of disease documented and left heart catheterization September 2012 4. PCD implant 2012 with generator replacement with a [employer] device April 2017 5. Paroxysmal atrial fibrillation anticoagulation currently on hold 6. Hypertension 7. Dyslipidemia 8. 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 COPD 10. Chronic kidney disease stage IIIB Blood pressure is running 100 systolic. Heart rate is in the 70s and the patient is afebrile. Hemoglobin this morning 9.3. Glucose 101. The patient continues atorvastatin acetamide furosemide metoprolol succinate pantoprazole. During initial attempt at endoscopy the procedure was terminated as blood pres sure was running 70 systolic. This occurred despite reducing her Entresto medication on admission. Her Entresto medication has been held and blood pressures yesterday were stable. She did not undergo repeat attempt at endoscopy procedures yesterday and it is unclear at this point if there are plans for endoscopy during this admission. If there are no plans for endoscopy during this admission the patient can follow up with me next week in the office. We will plan on holding her anticoagulation for 4-6 weeks before reattempting anticoagulation. SHANNON MUSTAFA MD Jul 22, 2024 08:07
--- NOTE | 2024-07-22 10:30 | NUR ---
PT WAS TAKEN DOWN TO GI LAB FOR EGD AND WILL ASSESS WHEN SHE IS RETURNED TO HER ROOM.
[2024-07-22] MEDS ORDERED: LIDOCAINE PF 100MG/5ML (2%) SYRINGE 5ML ONE (10:38)
[2024-07-22] MEDS ORDERED: proPOFol 10 MG/ML 20ML VIAL IV ONE (10:38)
--- NOTE | 2024-07-22 12:46 | PN ---
[facility] PROGRESS NOTE Date of Service: Jul 22, 2024 Time of Service: 12:38 SUBJECTIVE: 07/17 this is a late dictation, patient seen at bedside, no acute events overnight. She has been started on diuresis. GI was consulted however defers to do endoscopy at this time until patient more stable from a CHF perspective. 07/18 patient seen at bedside, no acute events overnight. Creatinine stable at 1.6, same as yesterday potassium decreased from 4.5 down to 2.3, we will be repleted according to protocol. She reports she is feeling better after some diuresis. GI is finally take her for EGD on Saturday or Saturday. Echocardiogram showing decreased EF at 30-35% with mild mitral valve regurgitation and trace aortic valve regurgitation 07/19 patient seen at bedside, no acute events overnight. He has no complaints at this time. GI pending possible EGD on Saturday or Saturday. We will follow up. Hemoglobin decreased from 9.4 down to 8.9, patient reports to bloody bowel movements with both dark black blood and bright red blood. 07/20 patient is seen and examined, no acute events overnight, scheduled for EGD today, per discussion with the nurse, patient had mild drop in blood pressure, furosemide switched to from 40 mg p.o. b.i.d. to 40 mg p.o. daily, Imdur 30 mg p.o. daily has been discontinued. We will continue to closely monitoring of the patient's BP, possible rescheduled EGD tomorrow day after tomorrow, pending further GI recommendations. Discussed with the patient. 07/21 the patient has been seen and examined during my rounding, no acute events over tonight, hemodynamically stable, BP 112/55, afebrile, saturating normal on room air, denies chest pain, shortness shortness for breath, no nausea, no vomiting. Hemoglobin today at 8.9, hematocrit 28.9, denies melena, no hematochezia, no hematemesis. Pending further GI recommendations in terms rescheduling the EGD. Today's creatinine at 2.2. Patient currently on furosemide 40 mg p.o. daily, continue close monitoring of the patient's renal function, if continue to get worse we will request Nephrology consultation. 07/22/24 patient is seen and examined at bedside, BP 108/72, afebrile, saturating normal on room air. CBC with a hemoglobin stable at 9.3, hematocrit 30.9. Echocardiogram reviewed, right ventricle is mildly dilated, AICD present in the right ventricle, mild mitral valve regurgitation, trace aortic regurgitation. Cardiology input noted and appreciated, continue to hold Entresto. EGD done, finding of small hiatal hernia, erythematous mucosa in the stomach, normal duodenum bulb and second portion of the duodenum, no specimen collected. REVIEW OF SYSTEMS 12 point review of systems negative unless noted in HPI PHYSICAL EXAM GENERAL APPEARANCE: The patient is awake, alert, and oriented, in no acute cardiopulmonary distress. NEUROLOGICAL: Cranial nerves II-XII grossly intact. Motor is 5/5 in bilateral upper and lower extremities proximal to distal. No sensory deficits. HEENT: Face is symmetric. Pupils are equal and reactive. Extraocular movements are intact. NECK: Supple. No JVD. No thyromegaly. No submental, submandibular, pre-/postauricular, occipital or supraclavicular lymphadenopathy. CHEST: Normal chest expansion. No Telemetry. LUNGS: Crackles noted bilateral lung bases with rhonchorous breath sounds CARDIOVASCULAR: Regular. S1 and S2 normal. No appreciable rubs, murmurs or gallops. ABDOMEN: Soft, nontender, and nondistended. There is no rebound, voluntary guarding, or rigidity. : Deferred. No Ma. EXTREMITIES: 2+ pitting edema bilateral lower extremity SKIN: No skin breakdown. Vital Signs (last 8hr) Date Time Temp Pulse Resp B/P (MAP) Pulse Ox O2 Delivery O2 Flow Rate FiO2 07/22/24 11:20 97.9 57 20 108/72 97 Room Air 07/22/24 11:15 97.5 75 16 112/47 98 Room Air 07/22/24 11:10 71 17 118/44 98 Room Air 07/22/24 11:05 74 16 109/45 99 Room Air 07/22/24 11:00 68 17 122/46 98 Room Air 07/22/24 10:55 60 17 117/47 98 Nasal Cannula 2.0 07/22/24 10:50 59 16 133/44 99 Nasal Cannula 2.0 07/22/24 10:45 97.7 58 19 155/45 100 Nonrebreathing Mask 10.0 07/22/24 10:38 Mask 07/22/24 10:38 Mask 10.0 07/22/24 08:30 75 18 N/A Room Air 21 07/22/24 07:15 98 Room Air* 0 21 07/22/24 07:05 75 18 07/22/24 07:00 97.7 75 20 106/41 97 Room Air 07/22/24 04:40 98.8 60 18 107/57 98 Room Air LABS: Laboratory: Test 07/22/24 11:23 07/22/24 07:20 07/21/24 16:09 07/21/24 03:42 Range/Units Whole Blood Glucose 84 70-110 MG/DL Hemoglobin 9.3 L 12.0-16.0 g/dL Hematocrit 30.9 L 36-48 % Bedside Glucose Comment Notified Nurse White Blood Count 6.7 4.8-10.8 K/uL Red Blood Count 2.86 L 4.00-5.50 MIL/uL Mean Corpuscular Volume 101.0 H 79-99 fL Mean Corpuscular Hemoglobin 31.1 27.0-33.0 pg Mean Corpuscular Hemoglobin Concent 30.8 L 32.0-36.0 g/dL Red Cell Distribution Width 16.6 H 11.0-15.5 % Platelet Count 271 130-400 K/uL Mean Platelet Volume 9.8 7.5-10.5 fL Immature Granulocyte % (Auto) 0.5 0-1 % Neutrophils (%) (Auto) 63.2 40.0-77.0 % Lymphocytes (%) (Auto) 23.0 21.0-51.0 % Monocytes (%) (Auto) 10.5 3.0-13.0 % Eosinophils (%) (Auto) 2.3 0.0-8.0 % Basophils (%) (Auto) 0.5 0.0-5.0 % Neutrophils # (Auto) 4.2 1.8-7.7 K/uL Lymphocytes # (Auto) 1.5 1.0-4.8 K/uL Monocytes # (Auto) 0.7 0.1-1.0 K/uL Eosinophils # (Auto) 0.15 0.00-0.70 K/uL Basophils # (Auto) 0.03 0.00-0.20 K/uL Absolute Immature Granulocyte (auto 0.03 0-1 K/uL Nucleated Red Blood Cells 0.3 H 0.0-0.19 % Sodium Level 146 H 136-145 mmol/L Potassium Level 4.3 3.5-5.1 mmol/L Chloride Level 110 101-111 mmol/L Carbon Dioxide Level 28 21-32 mmol/L Blood Urea Nitrogen 29 H 7-18 mg/dL Creatinine 2.2 H 0.5-1.0 mg/dL Glomerular Filtration Rate Calc 22 >90 mL/min Random Glucose 123 H 70-105 mg/dL Total Calcium 8.5 8.5-10.1 mg/dL Magnesium Level 2.10 1.80-2.40 mg/dL Total Bilirubin 0.5 0.2-1.0 mg/dL Aspartate Amino Transf (AST/SGOT) 20 10-37 U/L Alanine Aminotransferase (ALT/SGPT) 12 12-78 U/L Alkaline Phosphatase 95 50-136 U/L Total Protein 5.9 L 6.0-8.3 g/dL Albumin 2.5 L 3.5-5.0 g/dL Current Medications Medications (Trade) Dose Ordered Sig/Fracisco Route PRN Reason Start Time Stop Time Status Last Admin Dose Admin Acetaminophen (TYLenol 500MG TAB) 500 mg Q6H PRN PO MILD PAIN (1-3) 07/16/24 16:30 08/15/24 16:29 07/22/24 01:44 500 MG Aspirin (Aspirin 325mg Tab) 325 mg ONCE PO 07/16/24 14:30 07/16/24 21:30 DC 07/16/24 14:36 325 MG Atorvastatin Calcium (LIPItor 40MG) 40 mg HS PO 07/16/24 21:00 08/15/24 20:59 07/21/24 21:05 40 MG Budesonide (Pulmicort 0.5 Mg/2ml) 0.5 mg BIDRESP IH 07/16/24 18:00 08/15/24 17:59 07/22/24 07:05 0.5 MG EZETIMIBE (Zetia) 10 mg DAILY PO 07/17/24 09:00 08/16/24 08:59 07/20/24 09:38 10 MG Furosemide (LASix 20MG VIAL) 20 mg ONCE IV 07/16/24 14:30 07/16/24 16:03 DC 07/16/24 14:36 20 MG Furosemide (LASix 20MG VIAL) 20 mg Q8H IV 07/16/24 18:00 07/16/24 17:30 DC Furosemide (LASix 20MG VIAL) 20 mg Q8H IV 07/16/24 19:00 07/17/24 23:32 DC 07/17/24 18:34 20 MG Furosemide (LASix 40MG TAB) 40 mg BID@09,17 PO 07/18/24 17:00 07/20/24 06:41 DC 07/19/24 17:15 40 MG Furosemide (LASix 40MG TAB) 40 mg DAILY PO 07/20/24 07:00 08/17/24 16:59 07/20/24 09:37 40 MG Home Med (Home Medication) (Fluticasone/ Vilanterol (B... DAILY IH 07/17/24 09:00 08/16/24 08:59 07/20/24 09:43 1 EACH Insulin Human Regular (humuLIN R 100 UNIT/ML 3ML) INSULIN SLIDING SCAL... ACHS SQ 07/16/24 16:30 08/15/24 16:29 07/19/24 17:17 2 UNIT Iron Sucrose 300 mg/Sodium Chloride 250 ml @ 83 mls/hr DAILY IV 07/17/24 09:00 07/19/24 14:00 DC 07/19/24 09:27 83 MLS/HR Isosorbide Mononitrate (Imdur 30mg Sr) 30 mg DAILY PO 07/18/24 12:00 07/20/24 15:18 DC 07/20/24 09:37 30 MG Magnesium Sulfate 50 ml @ 0 mls/hr PROTOCOL IV 07/16/24 17:30 08/15/24 17:29 07/19/24 05:15 25 MLS/HR Metoprolol Succinate (TopROL XL) 25 mg DAILY PO 07/20/24 09:00 08/19/24 08:59 07/20/24 09:37 25 MG Metoprolol Tartrate (loprESSOR) 12.5 mg BID PO 07/16/24 21:00 07/19/24 23:55 DC 07/19/24 21:03 12.5 MG Nitroglycerin (Nitroglycerin 1gm Oint) 1 inch Q8H PRN TD CHEST PAIN 07/17/24 10:00 07/18/24 11:58 DC Ondansetron HCl (zoFRAN 4MG INJ) 4 mg Q6H PRN IVP NAUSEA/VOMITING 07/16/24 16:30 08/15/24 16:29 Pantoprazole Sodium 80 mg/ Sodium Chloride 100 ml @ 10 mls/hr Q10H IVP 07/16/24 16:00 07/18/24 23:47 DC 07/18/24 17:41 10 MLS/HR Pantoprazole Sodium 80 mg/ Sodium Chloride 100 ml @ 10 mls/hr Q10H IVP 07/19/24 00:30 08/18/24 00:29 07/21/24 21:06 10 MLS/HR Potassium Chloride 100 ml @ 100 mls/hr AD PRN IV POTASSIUM PROTOCOL 07/16/24 17:30 08/15/24 17:29 Potassium Chloride (K-Dur/Klor-Con 20meq) 20 meq AD PRN PO POTASSIUM PROTOCOL 07/16/24 17:30 08/15/24 17:29 07/20/24 06:50 20 MEQ Potassium Chloride (KCl 10% Elixir 20meq/15ml) 20 meq AD PRN PO POTASSIUM PROTOCOL 07/16/24 17:30 08/15/24 17:29 07/18/24 17:40 20 MEQ Sacubitril/ Valsartan (Entresto 24 Mg-26 Mg Tablet) 0.5 each BID PO 07/19/24 21:00 07/22/24 09:42 DC 07/20/24 09:37 0.5 EACH Sacubitril/ Valsartan (Entresto 24 Mg-26 Mg Tablet) 1 each BID PO 07/16/24 21:00 07/19/24 12:35 DC 07/19/24 08:48 1 EACH Vitamin B Complex (Vitamin B-12) 1,000 mcg DAILY PO 07/17/24 09:00 08/16/24 08:59 07/20/24 09:37 1,000 MCG DIAGNOSTICS / RADIOLOGY: [ ] ASSESSMENT: Acute on chronic systolic and diastolic heart failure exacerbation, POA History of advanced ischemic cardiomyopathy with LVEF of about 35-40%, 06/12, POA NSTEMI, POA Acute hypoxemic respiratory failure with cardiogenic pulmonary edema, POA Progressive anemia with concerns for GI bleeding, POA History of recent anticoagulation with Eliquis as outpatient, POA Rule out outpatient atrial fibrillation, POA History of multivessel coronary artery disease with prior history of IA in 2008 History of coronary artery bypass vessel grafting times three-vessel in 2008, POA History of documented inoperable coronary artery disease by cardiac catheterization in 09/2012, POA Underlying history of hypertension, POA Hyperlipidemia, POA Obesity, POA Underlying history of ICD placement, POA Status post EGD 07/22/2024, small hiatal hernia found. PLAN: Continue PCCU Lasix changed to 40 mg p.o. daily Imdur discontinued, monitor BP Monitor urine output closely Hold anticoagulation moving forward Cardiology input noted and appreciated Transfuse to maintain hemoglobin greater than 7-8 due to active ACS Continue to follow CBC transfuse as needed Continue to follow GI input and recommendation DVT prophylaxis with SCDs and GI prophylaxis with Protonix Echo showing EF 30-35% with no major valvular abnormalities Disposition: Remains admitted to the PCU, status post EGD with finding of small hiatal hernia. Continue to follow CBC transfuse as needed. Total time spent greater than 30 minutes. CHARLIE WIGGINS MD Jul 22, 2024 12:46
[2024-07-22 12:59] LABS: CREATININE 1.6 mg/dL (0.5-1.0); POTASSIUM 4.3 mmol/L (3.5-5.1)
[2024-07-22 13:04] LABS: ALBUMIN 2.5 g/dL (3.5-5.0); BILIRUBIN,TOTAL 0.5 mg/dL (0.2-1.0); MAGNESIUM 2.2 mg/dL (1.80-2.40); TOTAL PROTEIN, SERUM 6.2 g/dL (6.0-8.3)
[2024-07-22] MEDS ORDERED: FURO40TA7 PO (15:12)
[2024-07-22] MEDS ORDERED: EZET10TA81 PO (15:12)
[2024-07-22] MEDS ORDERED: FAMO20TA8 PO (15:12)
[2024-07-22] MEDS ORDERED: METO25TA3 PO (15:12)
--- NOTE | 2024-07-22 15:14 | DS ---
Discharge Summary Hospital Course Summary: Patient admitted to the hospital July 16, 2024 with the following history of the present illness: 78-year-old female with underlying history of type 2 diabetes mellitus, chronic kidney disease stage 3, hypertension, hyperlipidemia, underlying history of coronary artery disease status post remote DE in 2008, history of coronary artery bypass grafting times three-vessel in 2008 and subsequently documented inoperable coronary artery disease by repeat cardiac catheterization in 09/2012, history of advanced ischemic cardiomyopathy with LVEF less than 30% (05/2023), history of recent anticoagulation with Eliquis, history of ICD placement, history of bilateral carotid artery stenosis who presented to the ER with chief complaint of progressive shortness of breath. Patient states that shortness of breath started several days ago and has been progressive in severity. She has dyspnea on exertion with minimal ambulation she has noticed significant swelling of her lower extremity. She denies any significant chest pain or chest pressure but reports having palpitations. She is followed by Dr. Kinney's with Cardiology as outpatient. Recently, due to marginal blood pressure, her dose of outpatient Lasix was decreased from 40 mg to 20 mg daily. She was also started on anticoagulation with Eliquis two weeks ago with last dose being a day prior. She is unsure if she has underlying history of atrial fibrillation/atrial flutter. She has also been taking aspirin as outpatient. She was also recently told that there might be issues with her ICD lead and she has been monitored closely by Dr. Davila. Legs have been significantly swollen since the dose of Lasix was reduced. On presentation to the hospital, patient was noted to be afebrile with T-max of 97.9 F, heart rate of 76, blood pressure 119/37. Patient was also noted to be hypoxemic requiring 2 L of O2 supplementation by nasal cannula. Labs on presentation showed WBC count of 7600, hemoglobin of 8.7, MCV of 100 with platelet count of [id number]. CMP remarkable for sodium 144, potassium 4.1, BUN of 26, creatinine of 1.4. Cardiac panel was noted to be elevated with high sensitivity troponin of 934 and BNP of 501. Chest x-ray showed significant pulmonary vascular congestion concerning for pulmonary edema with perihilar edema. Stool occult was positive for blood. Patient denies noticing active melena or hematochezia. Patient will be admitted for further management of acute on chronic systolic and diastolic heart failure exacerbation, NSTEMI, concern for GI bleeding in the setting of outpatient Eliquis therapy. Patient admitted under hospitalist service and consultation with GI and Cardiology will be requested this admission. We will monitor this patient closely. 07/17 this is a late dictation, patient seen at bedside, no acute events overnight. She has been started on diuresis. GI was consulted however defers to do endoscopy at this time until patient more stable from a CHF perspective. 07/18 patient seen at bedside, no acute events overnight. Creatinine stable at 1.6, same as yesterday potassium decreased from 4.5 down to 2.3, we will be repleted according to protocol. She reports she is feeling better after some diuresis. GI is finally take her for EGD on Saturday or Saturday. Echocardiogram showing decreased EF at 30-35% with mild mitral valve regurgitation and trace aortic valve regurgitation 07/19 patient seen at bedside, no acute events overnight. He has no complaints at this time. GI pending possible EGD on Saturday or Saturday. We will follow up. Hemoglobin decreased from 9.4 down to 8.9, patient reports to bloody bowel movements with both dark black blood and bright red blood. 07/20 patient is seen and examined, no acute events overnight, scheduled for EGD today, per discussion with the nurse, patient had mild drop in blood pressure, furosemide switched to from 40 mg p.o. b.i.d. to 40 mg p.o. daily, Imdur 30 mg p.o. daily has been discontinued. We will continue to closely monitoring of the patient's BP, possible rescheduled EGD tomorrow day after tomorrow, pending further GI recommendations. Discussed with the patient. 07/21 the patient has been seen and examined during my rounding, no acute events over tonight, hemodynamically stable, BP 112/55, afebrile, saturating normal on room air, denies chest pain, shortness shortness for breath, no nausea, no vomiting. Hemoglobin today at 8.9, hematocrit 28.9, denies melena, no hematochezia, no hematemesis. Pending further GI recommendations in terms rescheduling the EGD. Today's creatinine at 2.2. Patient currently on furosemide 40 mg p.o. daily, continue close monitoring of the patient's renal function, if continue to get worse we will request Nephrology consultation. 07/22/24 patient is seen and examined at bedside, BP 108/72, afebrile, saturating normal on room air. CBC with a hemoglobin stable at 9.3, hematocrit 30.9. Echocardiogram reviewed, right ventricle is mildly dilated, AICD present in the right ventricle, mild mitral valve regurgitation, trace aortic regurgitation. Cardiology input noted and appreciated, continue to hold Entresto. EGD done, finding of small hiatal hernia, erythematous mucosa in the stomach, normal duodenum bulb and second portion of the duodenum, no specimen collected. Secretary To Board Of Commissioners(s): Cardiology and GI Procedure(s): EGD done 07/22/2024, finding of small hiatal hernia, erythematous mucosa of the stomach,normal duodenum bulb and second portion of the duodenum, no specimen collected. Assessment/Plan: ASSESSMENT: Acute on chronic systolic and diastolic heart failure exacerbation, POA History of advanced ischemic cardiomyopathy with LVEF of about 35-40%, 06/12, POA NSTEMI, POA Acute hypoxemic respiratory failure with cardiogenic pulmonary edema, POA Progressive anemia with concerns for GI bleeding, POA History of recent anticoagulation with Eliquis as outpatient, POA Rule out outpatient atrial fibrillation, POA History of multivessel coronary artery disease with prior history of DE in 2008 History of coronary artery bypass vessel grafting times three-vessel in 2008, POA History of documented inoperable coronary artery disease by cardiac catheterizat ion in 09/2012, POA Underlying history of hypertension, POA Hyperlipidemia, POA Obesity, POA Underlying history of ICD placement, POA Status post EGD 07/22/2024, small hiatal hernia found. PLAN: Continue PCCU Lasix changed to 40 mg p.o. daily Imdur discontinued, monitor BP Monitor urine output closely Hold anticoagulation moving forward Cardiology input noted and appreciated Transfuse to maintain hemoglobin greater than 7-8 due to active ACS Continue to follow CBC transfuse as needed Continue to follow GI input and recommendation DVT prophylaxis with SCDs and GI prophylaxis with Protonix Echo showing EF 30-35% with no major valvular abnormalities Disposition: Remains admitted to the PCU, status post EGD with finding of small hiatal hernia. Continue to follow CBC transfuse as needed. Total time spent greater than 30 minutes. Discharge Instructions: Patient to follow up with primary care physician as well as gallery assistant as an outpatient. Recommended to hold anticoagulation for four weeks until she gets re-evaluated as an outpatient by gallery assistant. Patient to return to the hospital if her condition changes. Patient agreed with plan and understood the information provided. Home Medications: Reported Medications Budesonide/Formoterol Fumarate (Symbicort 80/4.5 Inhaler) 80 Mcg-4.5 Mcg/Actuation Puff, 1 PUFF IH DAILY, INH 07/16/24 Sacubitril/Valsartan (Entresto 24 mg-26 mg Tablet) 24 Mg-26 Mg Tablet, 1 TAB PO BID for 30 Days, #60 TAB 0 Refills 07/16/24 Metolazone (Metolazone) 5 Mg Tablet, 1 TAB PO DAILY for 30 Days, #30 TAB 0 Refills 07/16/24 Cyanocobalamin (Vitamin B-12) (B-12) 1,000 Mcg Tablet, 1 TAB PO DAILY for 30 Days, #30 TAB 0 Refills 07/16/24 Rosuvastatin Calcium (Rosuvastatin Calcium) 40 Mg Tablet, 1 TAB PO DAILY for high cholesterol for 30 Days, #30 TAB 0 Refills 07/16/24 Apixaban (Eliquis) 5 Mg Tablet, 1 TAB PO DAILY for 30 Days, #60 TAB 0 Refills 07/16/24 Discontinued Reported Medications Glimepiride (Glimepiride) 1 Mg Tablet, 1 MG PO DAILY, TAB 01/17/23 Omeprazole (Omeprazole) 40 Mg Capsule.dr, 40 MG PO DAILY, CAP 05/28/22 Furosemide (Furosemide) 20 Mg Tablet, 20 MG PO DAILY, TAB 05/28/22 Ezetimibe (Ezetimibe) 10 Mg Tablet, 10 MG PO DAILY, TAB 05/28/22 Benzonatate (Benzonatate) 100 Mg Capsule, 100 MG PO TID PRN for COUGH, CAP 05/28/22 Albuterol Sulfate (Proventil Hfa) 6.7 Gm Hfa.aer.ad, 6.7 GM IH Q6HPRN 05/28/22 Clopidogrel Bisulfate (Clopidogrel) 75 Mg Tablet, 75 MG PO DAILY, TAB 03/25/22 Nitroglycerin (Nitroglycerin) 0.4 Mg Tab.subl, 0.4 MG SL q5 MINUTES X 3, TAB.SL 03/25/22 Sacubitril/Valsartan (Entresto 24 mg-26 mg Tablet) 1 Each Tablet, 1 EACH PO BID, TAB 08/08/18 Fluticasone/Vilanterol (Breo Ellipta 100-25 Mcg INH) 1 Each Aer.pow.ba, 1 EACH IH DAILY 08/08/18 Discontinued Scripts Aspirin (ASPIRIN 81 MG ECTAB) 81 Mg Ectab, 81 MG PO DAILY, #30 TAB.EC 0 Refills Prov:ELEANOR SHAW 01/18/23 Metoprolol Tartrate (Metoprolol Tartrate) 25 Mg Tablet, 12.5 MG PO BID, #30 TAB Prov:KEMI LOZANO NP 05/31/22 Isosorbide Mononitrate (Isosorbide Mononitrate ER) 30 Mg Tab.er.24h, 30 MG PO DAILY for 90 Days, #90 TAB 3 Refills Prov:PRATIMA SANTOS MD 08/09/18 Albuterol Sulfate (Albuterol Sulfate) 2.5 Mg/0.5 Ml Vial.neb, 2.5 MG IH TID PRN for cough, #60 INH Prov:JANEEN ROSADO MD 06/05/14 Doxycycline Hyclate (Doxycycline Hyclate) 100 Mg Tablet, 100 MG PO BID, #14 TAB 0 Refills Prov:ELEANOR SHAW 01/18/23 Time spent arranging discharge: 31-60 minutes CHARLIE WIGGINS MD Jul 22, 2024 15:14
--- NOTE | 2024-07-22 16:30 | NUR ---
PT WAS DISCHARGED AFTER ORDERS FOR DISCHARGE WERE OBTAINED. PT'S DAUGHTER WAS ADVISED OF ANTICOAG TO BE HELD FOR 4 WEEKS AND TO MAKE APPOINTMENT TO SEE DR. MUSTAFA IN 4 WEEKS.
== END 2024-07-22 16:30 | disposition home or self-care (01) | DRG 280 ==
LOC: EDH 12:03 → EDHIP 15:55 → 2DH 07-17 03:45
PROVIDERS: ADMIT Internal Medicine; ATTEND Internal Medicine
PROC: 0DJ08ZZ Inspection of Upper Intestinal Tract, Via Natural or Artificial Opening Endoscopic (ICD-10-PCS; principal; 2024-07-22)
DX: I13.0 Hypertensive heart and chronic kidney disease with heart failure and stage 1 through stage 4 chronic kidney disease, or unspecified chronic kidney disease (principal); I50.43 Acute on chronic combined systolic (congestive) and diastolic (congestive) heart failure; I21.4 Non-ST elevation (NSTEMI) myocardial infarction; J96.01 Acute respiratory failure with hypoxia; D62 Acute posthemorrhagic anemia; Z68.41 Body mass index [BMI] 40.0-44.9, adult; E11.22 Type 2 diabetes mellitus with diabetic chronic kidney disease; I25.10 Atherosclerotic heart disease of native coronary artery without angina pectoris; I48.0 Paroxysmal atrial fibrillation; E78.5 Hyperlipidemia, unspecified; Z20.822 Contact with and (suspected) exposure to COVID-19; I25.5 Ischemic cardiomyopathy; N18.32 Chronic kidney disease, stage 3b; R94.31 Abnormal electrocardiogram [ECG] [EKG]; J44.9 Chronic obstructive pulmonary disease, unspecified; K44.9 Diaphragmatic hernia without obstruction or gangrene; K31.89 Other diseases of stomach and duodenum; D50.9 Iron deficiency anemia, unspecified; E66.9 Obesity, unspecified; Z79.899 Other long term (current) drug therapy; Z87.891 Personal history of nicotine dependence; Z79.01 Long term (current) use of anticoagulants; Z95.810 Presence of automatic (implantable) cardiac defibrillator; Z95.1 Presence of aortocoronary bypass graft; Z79.02 Long term (current) use of antithrombotics/antiplatelets; Z79.82 Long term (current) use of aspirin
CPT/HCPCS: 36415; 43235; 70450; 71045; 80048; 80053; 80076; 81001; 82270; 82550; 82607; 82728; 82746; 82948; 83036; 83540; 83550; 83735; 83880; 84100; 84132; 84145; 84443; 84484; 85014; 85018; 85025; 85027; 85045; 85610; 85651; 85730; 86140; 86850; 86900; 86901; 87426; 87804; 93005; 93306; 93970; 94640; 94664; 96374; 96375; 99291; G0378; J1756; J1940; J2003; J2470; J2704; J3475; J3490; J7030; J7050; A4215; A4222; A4223; A4600; A4620; A4657

== ENCOUNTER 2024-10-24 16:39 | Emergency (ER) | payer OTHER, MEDICARE ==
[~2024-10-24] VITALS: Ht 149.9 cm; Wt 74.8 kg
[~2024-10-24 16:39] MED LIST changes: -AEC81 PO; +ALBU18HF7 IH; -ALBU6.7H14 IH; -AUD IH; -BENZ-226 PO; -CLOP75TA32 PO; +CYAN100099 PO; -DOXY100T2 PO; -EZET10TA48 PO; +EZET10TA81 PO; -FURO20TA4 PO; +FURO40TA5 PO; -GLIM1TAB56 PO; -ISOS30TA92 PO; +METO25TA3 PO; -METO25TA6 PO; -NITR0.4T50 SL; +ROSU5TAB51 PO; +SYMB8060 IH; +TRAM50TA4 PO
--- NOTE | 2024-10-24 16:51 | ERN ---
ED Note History of Present Illness Stated Complaint: LEFT EYE INFECTION Chief Complaint: Eye Problems Time Seen by MD: 16:40 Dictation: PATIENT IS A 79-YEAR-OLD FEMALE COMING IN TODAY WITH HER DAUGHTER WITH COMPLAINTS OF LEFT LOWER EYELID ANTERIOR DUCT ERYTHEMA SWELLING AND TENDERNESS SHE HAS HAD FOR 4-5 DAYS. DAUGHTER STATES IT STARTED ON SATURDAY SAW AN APPRENTICE/LINEMAN WHO PRESCRIBED HER ERYTHROMYCIN OINTMENT AND STERILE DROPS. HE THEN SAW HER DOCTOR ON SATURDAY WHO PUT HER ON CLINDAMYCIN 300 MG T.I.D. HOWEVER THE EYE IN THE FACIAL SWELLING HAS CONTINUED TO GET WORSE. NO VISION CHANGES. NO CONTACTS AT THIS TIME. Allergies: Coded Allergies: No Known Drug Allergies (Verified Allergy, 09/21/12) Home Meds Active Scripts Tramadol Hcl (Tramadol HCl) 50 Mg Tablet, 50 MG PO Q6HPRN PRN for PAIN, #15 TAB 0 Refills Prov:TARA SAAB MD 10/01/24 Sacubitril/Valsartan (Entresto 24 mg-26 mg Tablet) 24 Mg-26 Mg Tablet, 0.5 EACH PO BID, #30 TAB 0 Refills Prov:SEBLE JACKSON MD 07/29/24 Metoprolol Succinate (Toprol Xl) 25 Mg Tab.er.24h, 25 MG PO DAILY for 30 Days, #30 TAB 1 Refill Prov:CHARLIE WIGGINS MD 07/22/24 Ezetimibe (Zetia) 10 Mg Tablet, 10 MG PO DAILY for 30 Days, #30 TAB 1 Refill Prov:CHARLIE WIGGINS MD 07/22/24 Reported Medications Fluticasone/Vilanterol (Breo Ellipta 100-25 Mcg INH) 100 Mcg-25 Mcg/Dose Aer.pow.ba, 1 EACH IH AM 09/29/24 Furosemide (Furosemide) 40 Mg Tablet, 40 MG PO AM, TAB 09/29/24 Albuterol Sulfate (Ventolin Hfa) 90 Mcg Hfa.aer.ad, 2 PUFF IH AD PRN for w heezing for 30 Days, #18 GM 0 Refills 07/25/24 Rosuvastatin Calcium (Rosuvastatin Calcium) 5 Mg Tablet, 1 TAB PO BID for high cholesterol for 30 Days, #30 TAB 0 Refills 07/25/24 Omeprazole (Omeprazole) 40 Mg Capsule.dr, 1 CAP PO DAILY for 30 Days, #30 CAP 0 Refills 07/25/24 Budesonide/Formoterol Fumarate (Symbicort 80/4.5 Inhaler) 80 Mcg-4.5 Mcg/Actuation Puff, 1 PUFF IH DAILY, INH 07/16/24 Cyanocobalamin (Vitamin B-12) (B-12) 1,000 Mcg Tablet, 1 TAB PO DAILY for 30 Days, #30 TAB 0 Refills 07/16/24 Past Medical History Past Medical History: COPD, Diabetes-Type II, GERD, High Cholesterol, Heart Disease, Hypertension Surgical History: Cholecystectomy, CABG, Pacer/AICD Surgical History Other: CATARACT SX Family History: Negative Social History: Negative History: Not Applicable RN Note Reviewed/Agreed w/PFSH: Yes Review of System Dictation CONSTITUTIONAL: NEGATIVE EXCEPT FOR HPI HEAD/FACE: NEGATIVE EXCEPT FOR HPI LEFT LOWER LID ERYTHEMA SWELLING TENDERNESS EENT: NEGATIVE EXCEPT FOR HPI RESPIRATORY: NEGATIVE EXCEPT FOR HPI GASTROINTESTINAL/ABDOMINAL: NEGATIVE EXCEPT FOR HPI GENITOURINARY: NEGATIVE EXCEPT FOR HPI MUSCULOSKELETAL: NEGATIVE EXCEPT FOR HPI INTEGUMENTARY: NEGATIVE EXCEPT FOR HPI NEUROLOGICAL/PSYCH: NEGATIVE EXCEPT FOR HPI HEMATOLOGIC/LYMPHATIC: NEGATIVE EXCEPT FOR HPI ALL SYSTEMS NEGATIVE, EXCEPT NOTED ABOVE. 13 POINT REVIEW OF SYSTEMS ASSESSED AND ALL NEGATIVE EXCEPT FOR ABOVE. Initial Vital Sign VS Vital Signs Date Time Temp Pulse Resp B/P (MAP) Pulse Ox O2 Delivery O2 Flow Rate FiO2 10/24/24 16:42 63 16 167/72 98 Room Air 0 10/24/24 17:01 98.2 21 Physical Exam Dictation VITAL SIGNS REVIEWED GENERAL APPEARANCE: ALERT, ORIENTED X 3, NO ACUTE DISTRESS, WELL DEVELOPED, NOURISHED. HEAD AND FACE: NON-TRAUMATIC. EYES: PERRL, PINK CONJUNCTIVAS, EYELID NO TRAUMA, ANTERIOR CHAMBER WITH ARCUS SENILIS. LEFT LOWER PALPEBRAL FOLD SWELLING TENDERNESS THAT EXTENDS TO THE DUCT EARS: PINNAS INTACT AND NO SIGNS OF TRAUMA OR ERYTHEMA EAR CANALS CLEAR AND NO DISCHARGE TM NO ERYTHEMA NOSE: NO DISCHARGE, NO BLEEDING. OROPHARYNX: MOUTH NORMAL, TONGUE PINK, PHARYNX CLEAR,NO ERYTHEMA, TONSILS NO EXUDATES, NO ABSCESSES NOTED, MUCOUS MEMBRANE MOIST NECK: SUPPLE, NON-TENDER, NO THYROMEGALY, NO MASSES, NO JVD, NO BRUITS BREAST:DEFERRED CHEST:NO TENDERNESS, NO CREPITUS, NO PARADOXICAL MOVEMENT, NO RETRACTIONS LUNGS:CLEAR, WELL-VENTILATED, SYMMETRIC, NO RALES, NO WHEEZING, NO RHONCHI, NO STRIDOR, GOOD BREATH SOUNDS BILATERALLY HEART: REGULAR RATE, REGULAR RHYTHM, NO MURMUR, NO GALLOPS VASCULAR: NO PERIPHERAL EDEMA, ABDOMEN: SOFT, POSITIVE BOWEL SOUNDS, NONDISTENDED, NO GUARDING, NONTENDER, NO REBOUND, NO MASSES NO HEPATOMEGALY, NO SPLENOMEGALY, NO OROPEZA'S SIGN, NO HERNIAS. RECTAL: DEFERRED GENITAL: DEFERRED NEUROLOGICAL: NORMAL SPEECH, MOTOR FUNCTION INTACT, SENSORY FUNCTION INTACT MUSCULOSKELETAL: NECK NONTENDER, FULL RANGE OF MOTION, BACK NONTENDER, FULL RANGE OF MOTION, EXTREMITIES: NONTENDER, FULL RANGE OF MOTION SKIN: COLOR PINK, DRY, NO TURGOR, NO RASH, NO LACERATIONS, NO ABRASIONS, NO CONTUSIONS. LYMPHATIC: DEFERRED Results (Laboratory/Radiology) Laboratory/Radiology Laboratory Tests Test 10/24/24 17:35 White Blood Count 7.2 K/uL (4.8-10.8) Red Blood Count 3.27 MIL/uL (4.00-5.50) L Hemoglobin 10.7 g/dL (12.0-16.0) L Hematocrit 34.1 % (36-48) L Mean Corpuscular Volume 104.3 fL (79-99) H Mean Corpuscular Hemoglobin 32.7 pg (27.0-33.0) Mean Corpuscular Hemoglobin Concent 31.4 g/dL (32.0-36.0) L Red Cell Distribution Width 14.0 % (11.0-15.5) Platelet Count 183 K/uL (130-400) Mean Platelet Volume 10.5 fL (7.5-10.5) Immature Granulocyte % (Auto) 0.3 % (0-1) Neutrophils (%) (Auto) 70.2 % (40.0-77.0) Lymphocytes (%) (Auto) 20.8 % (21.0-51.0) L Monocytes (%) (Auto) 6.5 % (3.0-13.0) Eosinophils (%) (Auto) 1.8 % (0.0-8.0) Basophils (%) (Auto) 0.4 % (0.0-5.0) Neutrophils # (Auto) 5.0 K/uL (1.8-7.7) Lymphocytes # (Auto) 1.5 K/uL (1.0-4.8) Monocytes # (Auto) 0.5 K/uL (0.1-1.0) Eosinophils # (Auto) 0.13 K/uL (0.00-0.70) Basophils # (Auto) 0.03 K/uL (0.00-0.20) Absolute Immature Granulocyte (auto 0.02 K/uL (0-1) Nucleated Red Blood Cells 0.0 % (0.0-0.19) Sodium Level 141 mmol/L (136-145) Potassium Level 4.4 mmol/L (3.5-5.1) Chloride Level 106 mmol/L (101-111) Carbon Dioxide Level 30 mmol/L (21-32) Blood Urea Nitrogen 21 mg/dL (7-18) H Creatinine 1.5 mg/dL (0.5-1.0) H Glomerular Filtration Rate Calc 35 mL/min (>90) Random Glucose 112 mg/dL (70-105) H Lactic Acid Level 1.3 mmol/L (0.8-2.5) Total Calcium 9.9 mg/dL (8.5-10.1) FINDINGS: There is soft tissue or cystic and solid mass demonstrated demonstrated abutting the left nasal bone and in the medial anterior aspect of the left orbit. This appears to be extraconal but appears to cause mild mass effect on the left lower lobe. This measures roughly 2 cm in diameter and appears slightly irregular. There is no identified adjacent bony erosion or sclerosis. The paranasal sinuses demonstrate mild mucoperiosteal thickening. Remainder the study appears unremarkable. IMPRESSION: Small soft tissue mass or cystic and solid mass demonstrated in the left orbit. Possibilities include tumor or potential infection. This could be further evaluated with IV enhancement or MRI with IV enhancement and recommend ophthalmology consultation. CONTRASTED CT NOT POSSIBLE DUE TO PATIENT'S CREATININE Labs Reviewed?: Yes ED Course ED Course Orders Procedure Category Date Status Time Cbc With Differential LAB 10/24/24 Complete 16:46 Blood Cult POORNIMA 10/24/24 In Process 16:46 Lactic Acid LAB 10/24/24 Complete 16:46 Basic Metabolic Panel LAB 10/24/24 Complete 16:46 Ct Maxillofacial W/O CT 10/24/24 Resulted Contrast 16:46 Clindamycin Ivpb PHA 10/24/24 Complete 600mg/50ml (Cleocin 16:46 0.9%Nacl 1000ml (Ns PHA 10/24/24 Complete 1000ml) 17:00 Aerobic Culture POORNIMA 10/24/24 In Process 19:45 Current Medications Medications (Trade) Dose Ordered Sig/Fracisco Route PRN Reason Start Time Stop Time Status Last Admin Dose Admin Clindamycin HCl/ Dextrose 50 ml @ 100 mls/hr ONCE STAT IV 10/24/24 16:46 10/24/24 17:15 DC 10/24/24 17:27 Sodium Chloride 1,000 ml @ 0 mls/hr ONCE ONCE IV 10/24/24 17:00 10/24/24 17:01 DC 10/24/24 17:27 Vital Signs Date Time Temp Pulse Resp B/P (MAP) Pulse Ox O2 Delivery O2 Flow Rate FiO2 10/24/24 22:59 98.2 77 16 129/73 98 Room Air* 0 21 10/24/24 17:01 98.2 62 16 165/70 98 Room Air* 0 21 10/24/24 16:42 63 16 167/72 98 Room Air 0 0/SPOKE WITH THE MARY IRIZARRY/DAUGHTER AND EXPLAINED THE SITUATION REGARDING NEED FOR OPHTHALMOLOGY CONSULTATION. SHE SPOKE WITH MOTHER AND THEY AGREED FOR TRANSFER TO A HIGHER LEVEL OF CARE. CASE WAS JUST DOES WITH DR. LAWRENCE MONTOYA, HE AGREES THAT THE NEED FOR TRANSFER TO HIGHER LEVEL OF CARE. 1919/SPOKE WITH ELIJAH GUILLORY DIRECTOR [employer] AND EXPLAINED NEED FOR OPHTHALMOLOGY TRANSFER. Medical Decision Making MDM MDM: The patient is a 79-year-old female with a history of diabetes, hypertension, hyperlipidemia, CKD who presents to the emergency department with complaints of left lower eyelid swelling in drainage onset 4-5 days ago. Patient reports she was seen by Ophthalmology given erythromycin and then seen by her PCP on and giving clindamycin with no improvement. CBC showed no leukocytosis, mild microcytic anemia, chemistry showed no electrolyte imbalance, GFR of , creatinine of 1.5. Patient with a history of CKD. CT showed solid mass to left orbit. Patient will be transfer to [facility] for ophthalmology consultation. Spoke to Dr. Diaz hospitalist who accepts transfe r @ 2042 DIFFERENTIAL DIAGNOSIS: DACRYOCYSTITIS VERSUS MASS VERSUS CONJUNCTIVITIS/INFECTION/SEPSIS RATIONALE: TESTS CONSIDERED AND ORDERED SECONDARY TO SHARED DECISION MAKING INCLUDE: LABS, AND RADIOLOGY PREVIOUS OUTSIDE RECORDS REVIEWED: OLD ER VISITS. RISK OF COMPLICATION AND/OR MORBIDITY OR MORTALITY OF PATIENT MANAGEMENT: [id number] PATIENT WILL NEED TRANSFER TO HIGHER LEVEL OF CARE WITH OPHTHALMOLOGY CONSULTATION MEDICATIONS-PER MEDICATION RECONCILIATION NEED FOR HOSPITALIZATION: PATIENT DOES MEET CRITERIA FOR HOSPITALIZATION. PATIENT WILL NEED A TRANSFER, SPOKE TO PATIENT'S DAUGHTER AND SHE AGREED TO PROCEED NEED FOR EMERGENCY MAJOR/MINOR SURGERY: NO THERE ARE NO SOCIAL CONCERNS WITH THIS PATIENT. PRESCRIPTION DRUG MANAGEMENT PRESCRIPTIONS WILL INCLUDE SYMPTOMATIC CARE PATIENT'S PRIOR EXTERNAL MEDICAL RECORDS FROM OTHER ER VISITS WERE REVIEWED BY ME INDICATED. PRIOR TESTING AND RESULTS FROM PREVIOUS VISITS WERE REVIEWED. PRIOR TESTS WERE TAKEN INTO ACCOUNT WITH MEDICAL DECISION MAKING AND RESOURCE UTILIZATION, INDEPENDENT HISTORIAN/HISTORIANS WERE USED TO OBTAIN COMPLETE MEDICAL HISTORY. I INDEPENDENTLY INTERPRETED THE TEST THAT WERE PERFORMED, RESULTS WERE REVIEWED BY ME AND CONSIDERED FINDINGS ON RADIOLOGY IF ORDERED. MEDICAL MANAGEMENT AND EXAMINATION INTERPRETATION DISCUSSIONS WERE HAD BY ME WITH OTHER QUALIFIED HEALTHCARE PROFESSIONALS INDICATED FOR THE PATIENT'S CARE. DX & DISP Disposition: Transfer Decision to Admit Date: Oct 24, 2024 Decision to Admit Time: 20:43 Departure Impression: Primary Impression: Dacryocystitis, left Additional Impressions: Stage 3 chronic kidney disease, Hyperglycemia, Failure of outpatient treatment Condition: Stable Referrals: MARIA A BIRMINGHAM (PCP) Time of Disposition: 19:05 I have reviewed the case, and I agree with, Diagnosis and Plan MEL BARRERA [employer] MANUFACTURING TECHNICIAN Oct 24, 2024 16:51 KEMI ORTEGA Oct 24, 2024 23:38
[2024-10-24] MEDS: 0.9%NACL 1000ML 1,000 ML IV ONE (17:27)
[2024-10-24] MEDS: CLINDAMYCIN IVPB 600MG/50ML 50 ML IV STA (17:27)
[2024-10-24 17:44] LABS: BASOPHILS # (AUTO) 0.03 K/uL (0.00-0.20); BASOPHILS % (AUTO) 0.4 % (0.0-5.0); EOSINOPHILS # (AUTO) 0.13 K/uL (0.00-0.70); EOSINOPHILS % (AUTO) 1.8 % (0.0-8.0); HEMATOCRIT 34.1 % (36-48); IMMATURE GRANULOCYTE ABSOLUTE 0.02 K/uL (0-1); LYMPHOCYTES # (AUTO) 1.5 K/uL (1.0-4.8); LYMPHOCYTES % (AUTO) 20.8 % (21.0-51.0); MEAN CORPUSCULAR HEMOGLOBIN 32.7 pg (27.0-33.0); MEAN CORPUSCULAR HGB CONC 31.4 g/dL (32.0-36.0); MEAN CORPUSCULAR VOLUME 104.3 fL (79-99); MONOCYTES # (AUTO) 0.5 K/uL (0.1-1.0); MONOCYTES % (AUTO) 6.5 % (3.0-13.0); NEUTROPHILS % (AUTO) 70.2 % (40.0-77.0); PLATELET COUNT (AUTO) 183 K/uL (130-400); RED BLOOD CELL COUNT(AUTO) 3.27 MIL/uL (4.00-5.50); WHITE BLOOD COUNT (AUTO) 7.2 K/uL (4.8-10.8)
--- NOTE | 2024-10-24 17:46 | HMCIMG ---
CT MAXILLOFACIAL W/O CONTRAST CLINICAL HISTORY: LEFT PERIORBITAL SWELLING ERYTHEMA COMPARISON: None TECHNIQUE: Multiple sequential high-resolution axial images of the paranasal sinuses were obtained. Postprocessing coronal reconstruction images were also obtained. . CT was performed with one or more of the following dose reduction techniques: automated exposure control, adjustment of the mA and/or kV according to patient size, or use of iterative reconstruction technique FINDINGS: There is soft tissue or cystic and solid mass demonstrated demonstrated abutting the left nasal bone and in the medial anterior aspect of the left orbit. This appears to be extraconal but appears to cause mild mass effect on the left lower lobe. This measures roughly 2 cm in diameter and appears slightly irregular. There is no identified adjacent bony erosion or sclerosis. The paranasal sinuses demonstrate mild mucoperiosteal thickening. Remainder the study appears unremarkable. IMPRESSION: Small soft tissue mass or cystic and solid mass demonstrated in the left orbit. Possibilities include tumor or potential infection. This could be further evaluated with IV enhancement or MRI with IV enhancement and recommend ophthalmology consultation.
[2024-10-24 18:05] LABS: CREATININE 1.5 mg/dL (0.5-1.0); POTASSIUM 4.4 mmol/L (3.5-5.1)
--- NOTE | 2024-10-24 20:50 | NUR ---
SPOKE WITH JOEY AT [facility]. TRANSFER REQUEST INITIATED.
--- NOTE | 2024-10-24 21:19 | NUR ---
RECEIVED CALL FROM JOEY AT [facility] [place] [facility] DECLINING THE PT TRANSFER THEY DO NOT HAVE OPHTAMOLOGY DATABASE TECHNICIAN TONIGHT.
--- NOTE | 2024-10-24 21:22 | NUR ---
SPOKE WITH ELECTRONIC PARTS DESIGNER AT [facility] WHO DECLINED PT DUE TO ONLY HAVING OPHTHAMOLOGY FOR TRAUMA.
--- NOTE | 2024-10-24 21:29 | NUR ---
SPOKE WITH RICHARD AT [facility]. TRANSFER REQUEST INITIATED.
--- NOTE | 2024-10-24 23:10 | NUR ---
HOUSE SUP CONTACT [id number] REPORT PROVIDED TO [facility] [id number] PT TO BE TRANSFERED TO [facility] FOR FURTHER EVAL AND TREATMENT BY MD ANNABELLA LEWIS
--- NOTE | 2024-10-24 23:21 | NUR ---
TRANSFERED CARE TO [facility] AT THIS TIME
--- NOTE | 2024-10-24 23:45 | NUR ---
[facility] CONTACTED BY JANITORIAL TECH FOR TRANSFER TO [facility] ROOM [id number]
[2024-10-25 00:59] VITALS: BP 122/74; PULSE 72; RESP 16; TEMP 98.3; O2SAT 98
== END 2024-10-25 01:32 | disposition short-term general hospital (02) ==
LOC: EDH 16:39
DX: H04.302 Unspecified dacryocystitis of left lacrimal passage (principal); I12.9 Hypertensive chronic kidney disease with stage 1 through stage 4 chronic kidney disease, or unspecified chronic kidney disease; E11.22 Type 2 diabetes mellitus with diabetic chronic kidney disease; N18.30 Chronic kidney disease, stage 3 unspecified; E11.65 Type 2 diabetes mellitus with hyperglycemia; E78.00 Pure hypercholesterolemia, unspecified; J44.9 Chronic obstructive pulmonary disease, unspecified; Z79.51 Long term (current) use of inhaled steroids; Z79.899 Other long term (current) drug therapy; Z90.49 Acquired absence of other specified parts of digestive tract; Z95.1 Presence of aortocoronary bypass graft; Z95.810 Presence of automatic (implantable) cardiac defibrillator
CPT/HCPCS: 99285; 96365; 70486; 80048; 85025; 87040 ×2; 87086; 87186; 83605; 36415; 87070; J7030; J3490